=== PATIENT | female | born 1950 | race Caucasian/White ===

== ENCOUNTER → 2016-11-13 | Outpatient (CLI) | payer BC ==
[~2016-11-13] MED LIST: AMX500 PO; ANAS1TAB19 PO; ATOR-24 PO; CALC500C70 PO; CARB25TA12 PO; GABA-112 PO; IBUP-1050 PO; LISI20TA3 PO; MAGN1TAB21 PO; METF-384 PO; METO100T44 PO; MULT-614 PO; PRAM0.256 PO; Probiotic PO; TRAM-10 PO; ZVRUNK PO; lysine PO
--- NOTE | 2016-11-13 11:33 | DIAGNOSTIC IMAGING REPORT ---
BILATERAL CAROTID DOPPLER STUDY HISTORY: Visual change. Mental status change. G45.3 Bilateral amaurosis fugax COMPARISON: None. TECHNIQUE: Real-time, grayscale, and color Doppler sonography of the carotid arteries was performed. Imaging reviewed in the transverse and longitudinal planes. All measurements were calculated based on NASCET criteria. FINDINGS: Antegrade flow is seen in the bilateral vertebral arteries. The brachial pressures are hemodynamically similar. Moderate plaque formation bilaterally The peak systolic velocity within the right ICA is 72. The right systolic ratio is 0.9. The peak systolic velocity within the left ICA is 59. The left systolic ratio is 0.8. IMPRESSION: No hemodynamically significant stenosis seen within the carotid arteries. Mild plaque formation bilaterally Electronically signed by: Jean Wan M.D. 11/13/2016 11:31 AM Dictated Date/Time: 11/13/2016 11:30 AM
[2016-11-13 14:56] LABS: BASO % 0.4 %; BASO ABS # 0.02 K/uL (0-0.2); COMPLETE YES; EOS % 1.6 %; HEMATOCRIT 40.9 % (37-47); IG% 0.2 %; LYMPH ABS # 1.41 K/uL (1.2-3.4); MEAN CORPUSCULAR HEMOGLOBIN 30.5 pg (25-34); MEAN CORPUSCULAR HGB CONC 34.7 g/dl (32-36); MEAN PLATELET VOLUME 9.7 fL (7.4-10.4); MONO % 5.3 %; NEUT % 67.5 %; PLATELET COUNT 350 K/uL (130-400); RED BLOOD COUNT 4.65 M/uL (4.2-5.4); WHITE BLOOD COUNT 5.63 K/uL (4.8-10.8)
[2016-11-13 15:01] LABS: ESTIMATED AVERAGE GLUCOSE 166 mg/dl; HA1C FLAG Normal (Normal)
[2016-11-13 15:09] LABS: ALT/SGPT 51 U/L (12-78); AST/SGOT 28 U/L (15-37); BLOOD UREA NITROGEN 13 mg/dl (7-18); BUN/CREATININE RATIO 14.2 (10-20); CARBON DIOXIDE 28 mmol/L (21-32); CHLORIDE 101 mmol/L (98-107); CREATININE 0.92 mg/dl (0.60-1.20); GLUCOSE 222 mg/dl (70-99); POTASSIUM 4.2 mmol/L (3.5-5.1); SODIUM 137 mmol/L (136-145)
[2016-11-13 15:15] LABS: ALB/GLOB RATIO 0.9 (0.9-2); ALKALINE PHOSPHATASE 75 U/L (45-117); CHOLESTEROL 118 mg/dl (0-200); CHOLESTEROL/HDL RATIO 2.8; FERRITIN 118.8 ng/ml (8.0-388.0); HDL CHOLESTEROL 42 mg/dl; LDL CHOLESTEROL CALCULATED 60 mg/dl; TRIGLYCERIDES 79 mg/dl (0-150); VERY LOW DENSITY LIPOPROT CALC 16 mg/dl
== END | disposition home or self-care (01) ==
LOC: C.ULTRBC 10:45
PROVIDERS: ATTEND Internal Medicine Geriatric Medicine
DX: G45.3 Amaurosis fugax (principal); I65.23 Occlusion and stenosis of bilateral carotid arteries; Z11.59 Encounter for screening for other viral diseases; I25.10 Atherosclerotic heart disease of native coronary artery without angina pectoris; E78.5 Hyperlipidemia, unspecified; I10 Essential (primary) hypertension; E11.65 Type 2 diabetes mellitus with hyperglycemia

== ENCOUNTER → 2016-12-24 | Outpatient (CLI) | payer BC ==
--- NOTE | 2016-12-24 14:07 | MAMMOGRAPHY REPORT ---
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 The patient reports no palpable lumps or other current complaints. TECHNIQUE: Breast tomosynthesis in addition to standard 2D mammography was performed. Current study was also evaluated with a Computer Aided Detection (CAD) system. Bilateral CC and MLO 2-D and matias synthesis images and spot magnification left CC and ML views were obtained. COMPARISON: Comparison is made to exams dated: 12/13/2015 mammogram, 06/05/2015 ultrasound, 06/05/2015 mammogram, 12/05/2014 ultrasound, 12/05/2014 mammogram, and 02/27/2014 mammogram - [facility]. BREAST COMPOSITION: There are scattered areas of fibroglandular density in both breasts. FINDINGS: Again noted are post surgical changes in the left upper outer quadrant from prior lumpect concepción, including stable density and architectural distortion as well as surgical clips at the lumpecto my bed. Spot magnification views of the lumpectomy bed demonstrate scattered benign coarse dystroph ic calcifications which are increased compared to the prior exams although they are benign in morpho logy. A small cluster of punctate and round calcifications medial and anterior to the surgical bed is stable dating back to the 2013 exam and considered benign given long-term stability. No suspicio us cluster of calcifications is noted at the lumpectomy bed. The remainder of both breasts are stable compared to prior exams, without suspicious masses, calcifi cations, or areas of architectural distortion noted. Other scattered bilateral benign-appearing markos cifications are again noted. IMPRESSION: ACR BI-RADS CATEGORY 2: BENIGN There is no mammographic evidence of malignancy in either breast. Recommend routine bilateral mammo grams in one year; the patient prefers to remain a diagnostic patient. The patient has been verball y notified of the results. Approximately 10% of breast cancers are not detected with mammography. A negative mammographic repor t should not delay biopsy if a clinically suggestive mass is present. Ilsa Ortiz M.D. /:12/24/2016 10:51:45 Duplicator Punch Set Up Operator: Tamar MEDRANO(Maria Isabel)(Vida), [facility] letter sent: Normal 1/2 BI-RADS Code: ACR BI-RADS Category 2: Benign
== END | disposition home or self-care (01) ==
LOC: C.MAMM 09:37
PROVIDERS: ATTEND Nurse Practitioner Family
DX: Z85.3 Personal history of malignant neoplasm of breast (principal); Z92.3 Personal history of irradiation

== ENCOUNTER → 2017-07-05 | Outpatient (CLI) | payer BC ==
[2017-07-05 17:30] LABS: BLOOD UREA NITROGEN 13 mg/dl (7-18); BUN/CREATININE RATIO 14.3 (10-20); CALCIUM 9.3 mg/dl (8.5-10.1); CARBON DIOXIDE 27 mmol/L (21-32); CHLORIDE 95 mmol/L (98-107); CREATININE 0.92 mg/dl (0.60-1.20); GLUCOSE 203 mg/dl (70-99); POTASSIUM 3.8 mmol/L (3.5-5.1); SODIUM 131 mmol/L (136-145)
[2017-07-06 07:42] LABS: ESTIMATED AVERAGE GLUCOSE 157 mg/dl; HA1C FLAG Normal (Normal)
== END | disposition home or self-care (01) ==
LOC: C.LABBC 15:07
PROVIDERS: ATTEND Internal Medicine Geriatric Medicine
DX: E78.5 Hyperlipidemia, unspecified (principal); M19.90 Unspecified osteoarthritis, unspecified site; E11.9 Type 2 diabetes mellitus without complications; I10 Essential (primary) hypertension

== ENCOUNTER → 2017-09-29 | Outpatient (CLI) | payer BC ==
[~2017-09-29] MED LIST changes: -PRAM0.256 PO; +PRAM0.259 PO
--- NOTE | 2017-09-29 14:24 | DIAGNOSTIC IMAGING REPORT ---
CHEST 2 VIEWS ROUTINE CLINICAL HISTORY: R05 [id number] dyspnea COMPARISON STUDY: 01/03/2008 FINDINGS: Small calcified left hilar node. Calcified granuloma peripheral aspect left lung. No focal infiltrate. Diaphragms are smooth. Costophrenic angles are sharp. IMPRESSION: No acute process. Chronic granulomatous change. The above report was generated using voice recognition software. It may contain grammatical, syntax or spelling errors. Electronically signed by: Jean Wan M.D. 09/29/2017 2:22 PM Dictated Date/Time: 09/29/2017 2:21 PM
== END | disposition home or self-care (01) ==
LOC: C.RADBC 14:06
PROVIDERS: ATTEND Internal Medicine Geriatric Medicine
DX: R05 Cough (principal)

== ENCOUNTER → 2017-11-05 | Outpatient (CLI) | payer BC ==
[2017-11-05 11:39] LABS: BLOOD UREA NITROGEN 15 mg/dl (7-18); CALCIUM 9.6 mg/dl (8.5-10.1); CARBON DIOXIDE 29 mmol/L (21-32); CREATININE 0.82 mg/dl (0.60-1.20); GLUCOSE 195 mg/dl (70-99); POTASSIUM 4.3 mmol/L (3.5-5.1); SODIUM 133 mmol/L (136-145)
== END | disposition home or self-care (01) ==
LOC: C.LABBC 09:15
PROVIDERS: ATTEND Psychiatry & Neurology Neurology
DX: I10 Essential (primary) hypertension (principal); M54.16 Radiculopathy, lumbar region; K76.0 Fatty (change of) liver, not elsewhere classified; R26.89 Other abnormalities of gait and mobility

== ENCOUNTER → 2017-11-08 | Outpatient (CLI) | payer BC ==
[~2017-11-08] MED LIST changes: +GADAVIST IV PRN
--- NOTE | 2017-11-08 13:11 | DIAGNOSTIC IMAGING REPORT ---
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 There is a right hip paralabral cyst and degenerative changes within the right hip. This is not well-visualized on this study. Dedicated right hip radiograph or MRI may be helpful for further evaluation. Electronically signed by: Jose David Goodman M.D. 11/08/2017 2:26 PM Dictated Date/Time: 11/08/2017 2:25 PM ORIGINAL REPORT LUMBAR SPINE MRI WITH AND WITHOUT CONTRAST HISTORY: Low back pain with left-sided sciatica. Family history of malignant neoplasm TECHNIQUE: Multiplanar multisequence MRI of the lumbar spine was performed both before and after the intravenous administration of contrast. COMPARISON: None. FINDINGS: For the purpose of the report the L5-S1 disc space will be located on axial image 27 of 30. No fractures within the lumbar spine. Mild disc space narrowing at L1-L2, L2-L3, L3-L4, L4-L5. Moderate to severe facet degenerative changes within the lower lumbar spine. No suspicious osseous lesions identified. The visualized retroperitoneal soft tissues are unremarkable. No paraspinal or epidural masses. Multiple cystic lesions posterior to the bilateral L4-L5 and L5-S1 facets. The dominant cystic lesion at the right L4-L5 facet measures 2 cm. These demonstrate peripheral enhancement and are likely synovial cyst from the degenerative changes within the facets. Small amount of fluid within the right L5-S1 facet is also likely due to long-standing degenerative change. The conus terminates at the L1-L2 disc space level. L1-L2: Tiny broad-based posterior disc bulge. No significant central canal or neural foraminal narrowing. L2-L3: Small broad-based posterior disc bulge with facet hypertrophy resulting in minimal central canal narrowing. There is also mild right neural foraminal narrowing. L3-L4: Broad-based posterior disc bulge asymmetric to the left. In conjunction with the ligamentum and facet hypertrophy this results in mild to moderate central canal and mild bilateral neural foraminal narrowing. L4-L5: Broad-based posterior disc bulge with an associated left foraminal/extraforaminal broad-based disc protrusion. This abuts and displaces the exiting left L4 nerve root at this level. Mild enhancement at this location is likely reactive. There is mild/moderate central canal narrowing with mild right and moderate left neural foraminal narrowing. L5-S1: Small broad-based posterior disc bulge without significant central canal narrowing. Minimal bilateral neural foraminal narrowing. IMPRESSION: 1. Broad-based posterior disc bulge at L4-5 with an associated left foraminal/extraforaminal broad-based disc protrusion. This disc protrusion abuts and displaces the exiting left L4 nerve root. 2. Mild to moderate central canal narrowing at L3-L4 and L4-L5 as described above. 3. Moderate to severe facet osteoarthritis within the lower lumbar spine. There are also multiple cystic lesions posterior to the L4-L5 and L5-S1 facets. These favor synovial cysts. Electronically signed by: Jose David Goodman M.D. 11/08/2017 1:09 PM Dictated Date/Time: 11/08/2017 12:58 PM
== END | disposition home or self-care (01) ==
LOC: C.MRIBC 09:16
PROVIDERS: ATTEND Internal Medicine Geriatric Medicine
DX: M54.30 Sciatica, unspecified side (principal); M54.16 Radiculopathy, lumbar region; Z85.3 Personal history of malignant neoplasm of breast; Z80.3 Family history of malignant neoplasm of breast

== ENCOUNTER 2019-04-05 00:11 | Observation (INO) ==
[2019-04-05] MEDS ORDERED: FAMOTIDINE 20MG/5ML IV PUSH IV STA (01:22)
[2019-04-05] MEDS ORDERED: ALUMINUM/MAGNESIUM SUSP 30 ML UDC PO STA (01:22)
[2019-04-05 01:30] LABS: Basophils # (auto) 0.03 K/uL (0-0.2); Basophils % (auto) 0.4 %; Eosinophils # (auto) 0.22 K/uL (0-0.5); Eosinophils % (auto) 2.9 %; Hematocrit (blood only) 42.5 % (37-47); Hemoglobin 14.4 g/dL (12.0-16.0); Immature Granulocytes # (auto) 0.01 K/uL (0.00-0.02); Immature Granulocytes % (auto) 0.1 %; Lymphocytes # (auto) 2.83 K/uL (1.2-3.4); Lymphocytes % (auto) 37.4 %; Mean Corpuscular Hemoglobin 29.6 pg (25-34); Mean Corpuscular Hgb Conc 33.9 g/dL (32-36); Mean Corpuscular Volume 87.4 fL (80-100); Mean Platelet Volume 10.2 fL (7.4-10.4); Monocytes # (auto) 0.69 K/uL (0.11-0.59); Monocytes % (auto) 9.1 %; Neutrophils # (auto) 3.79 K/uL (1.4-6.5); Neutrophils % (auto) 50.1 %; Platelet Count 296 K/uL (130-400); RDW Coefficient of Variation 13.6 % (11.5-14.5); RDW Standard Deviation 43.5 fL (36.4-46.3); Red Blood Count 4.86 M/uL (4.2-5.4); White Blood Count 7.57 K/uL (4.8-10.8)
[2019-04-05 01:39] LABS: Albumin Level 3.8 gm/dl (3.4-5.0); BUN Creatinine Ratio 22.5 (10-20); Calcium 9.5 mg/dl (8.5-10.1); Creatinine Clr Calc Pharmacy 58.5 ml/min; Est GFR (African American) 66.4; Est GFR (Non-African American) 57.3; Magnesium 2.1 mg/dl (1.8-2.4)
[2019-04-05 01:50] LABS: Albumin Globulin Ratio 0.9 (0.9-2); Bilirubin,Total 0.3 mg/dl (0.2-1); Globulin 4.1 gm/dl (2.5-4.0); Thyroid Stimulating Hormone 6.11 uIu/ml (0.300-4.500); Total Protein 7.9 gm/dl (6.4-8.2); Troponin I 0.026 ng/ml (0-0.045)
[2019-04-05 02:04] LABS: D Dimer 590 ug/L FEU (0-500)
[2019-04-05] MEDS ORDERED: NITROGLYCERIN 2% OINTMENT 30GM TUBE EXT ONE (02:17)
[2019-04-05] MEDS ORDERED: OPTIRAY 320 125ml IV PRN (03:06)
[2019-04-05] MEDS ORDERED: CARBIDOPA/LEVODOPA 25/100MG TAB PO STA (03:32)
[2019-04-05 05:09] LABS: Prothrombin Time 10.4 Seconds (9.0-12.0)
--- NOTE | 2019-04-05 05:52 | Emergency Department Note ---
Entered by Guilherme Chery acting as a scribe for Nighat Harris DO History of Present Illness General Chief complaint: Chest Pain Stated complaint: CHEST DISCOMFORT, THROAT/NECK PAIN Time Seen by Provider: 04/05/19 00:51 Source: patient History of Present Illness Onset (ago): hour(s) (an hour and fifteen minutes ago) Location: chest Radiation: other (throat, jaw) Severity: similar to prior episodes Pain Consistency: + constant Maximum Pain Intensity: 3 Quality: + other (tightness) Associated symptoms: + other (Positive for a mild headache and mild difficulty swallowing. Negative for pain with swallowing, SOB, dizziness, and nausea.) The patient is a 69 year old female who presents to the emergency department with complaints of constant chest tightness beginning an hour and fifteen minutes ago. The patient states that she went to lie down in bed an hour and fifteen minutes ago. She notes that she started having mid chest tightness at that time. She reports that she then developed some discomfort in her throat and jaw. The patient states that she then went to sit in her living room, but she no awilda that her symptoms began to worsen. She reports that she did not have any pain radiate into her back or into her arms. She also complains of a mild headache and some mild difficulty swallowing. The patient states that she has had similar episodes in the past, however never sought any evaluation.. She denies any pain with swallowing, SOB, dizziness, and nausea. She notes that she has a history of GERD and angina, and she reports that she has had a cardiac catheterization in 2005. She states this did show a small area of coronary artery disease that was unable to be stented or traversed given its location. Patient's last stress test was [address] Parry. The patient states that she does not have a history of heart attacks. She notes that 3 of her siblings have had heart attacks in the past, several at younger ages. No recent trauma or change in activity. Patient does live at home alone. Home Medications Home Medications Medication Instructions Recorded Confirmed Type acyclovir 200 mg PO BID #0 02/05/18 04/05/19 History pantoprazole [Protonix] 40 mg PO QAM #0 02/05/18 04/05/19 History acetaminophen [Tylenol Extra 500 mg PO Q6H PRN 04/05/18 04/05/19 History Strength] ibuprofen [Advil] 200 mg PO TID PRN 04/05/18 04/05/19 History multivitamin 1 tab PO DAILY 04/05/18 04/05/19 History amlodipine 5 mg tablet 5 mg PO DAILY #0 tab 12/29/18 04/05/19 History anastrozole 1 mg tablet 1 mg PO DAILY #0 tab 12/29/18 04/05/19 History aspirin 81 mg tablet,delayed 81 mg PO DAILY 12/29/18 04/05/19 History release glimepiride 4 mg tablet 4 mg PO DAILY #0 tab 12/29/18 04/05/19 History atorvastatin 40 mg tablet 40 mg PO HS 90 Days #90 tab 01/23/19 04/05/19 Rx metoprolol succinate ER 100 mg 100 mg PO DAILY #90 tab 03/20/19 04/05/19 Rx tablet,extended release 24 hr gabapentin 300 mg capsule See Rx Instructions .ROUTE 03/24/19 04/05/19 Rx .COMPLEX 30 Days #150 cap amoxicillin 500 mg capsule 2,000 mg PO UD PRN #0 cap 03/25/19 04/05/19 History bupropion HCl SR 100 mg tablet,12 100 mg PO DAILY ea 03/25/19 04/05/19 History hr sustained-release calcium carbonate-vitamin D3 500 1 tab PO DAILY tab 03/25/19 04/05/19 History mg (1,250 mg)-600 unit tablet canagliflozin 300 mg tablet 300 mg PO DAILY 03/25/19 04/05/19 History carbidopa 25 mg-levodopa 100 mg 1 - 2 tab PO TID PRN #90 tab 03/25/19 04/05/19 History tablet magnesium 400 mg (as magnesium 400 mg PO QAM #0 tab 03/25/19 04/05/19 History oxide) capsule pramipexole ER 1.5 mg 1 mg PO QPM #30 tab 03/25/19 04/05/19 History tablet,extended release 24 hr sitagliptin 50 mg-metformin 1,000 1 tab PO BID #180 tab 03/25/19 04/05/19 History mg tablet diclofenac 1 % topical gel 4 gm TOP QID #100 gm 03/27/19 04/05/19 Rx canagliflozin [Invokana] 300 mg PO DAILY 04/05/19 04/05/19 History sitagliptin-metformin [Janumet] 1 tab PO BID 04/05/19 04/05/19 History Allergies Allergy/AdvReac Type Severity Reaction Status Date / Time latex Allergy Intermediate SKIN Verified 04/05/19 01:55 IRRITATION gluten AdvReac Unknown "sleepiness Verified 04/05/19 01:55 " Past Med/Surg History Medical History Diabetes mellitus, type 2 (Inactive) Diabetes mellitus type II, uncontrolled Hypertension (Chronic) Arteriosclerotic coronary artery disease (Chronic) Arthritis, hip (Acute) BMI 31.0-31.9,adult (Acute) Carotid artery plaque (Chronic) Chronic kidney disease, stage II (mild) (Chronic) Cognitive disorder (Acute) Cough (Acute) Diabetic peripheral neuropathy (Chronic) Dyslipidemia (Chronic) Encounter for routine gynecological examination with Papanicolaou smear of cervix (Acute) Genital herpes simplex (Acute) History of malignant neoplasm of breast (Acute) Lumbar radiculopathy (Acute) Moderate tramadol dependence (Acute) Poor balance (Acute) Rosacea (Acute) Trigger finger, acquired (Acute) Osteoarthritis of right hip Breast neoplasm, 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) Degenerative joint disease (Chronic) Sleep apnea (Chronic) Depression (Chronic) Restless leg syndrome (Chronic) 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) Stage I breast cancer (Acute 04/23/14) "Abnormal left breast mammogram 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 Status post lumpectomy and sentinel lymph node biopsy 04/23/2014 revealing invasive ductal carcinoma Stage [id number] estrogen receptor positive, progesterone receptor positive, HER-2/jethro negative Status post completion of radiation therapy 08/13/2014 received 6300 cGy Participation inREATA Study 40C 1306" Anginal pain Anxiety Arrhythmia CAD (coronary artery disease) non-obstructive CAD Cancer BREAST CANCER; XRT 2013; ON ANASTRAZOLE Depression Eye hemorrhage Fatty liver GERD (gastroesophageal reflux disease) controlled Gout Hypertension Obesity Osteoarthritis Restless leg syndrome ON CARVIDOPA-LEVODOPA/PRAMIPEXOLE Sleep apnea NO DEVICE Valvular disease MILD MR PER 2013 DSE Surgical History Status post tonsillectomy (Acute) Status post cardiac catheterization (Resolved 2005) Status post total knee replacement (Resolved) History of arthroscopy RT KNEE History of cardiac cath 2003- NON-OBSTRUCTIVE CAD; NO STENTS History of cataract surgery History of colonoscopy History of dilation and curettage History of hysterectomy History of tonsillectomy History of tooth extraction History of total knee replacement LEFT KNEE X 2 Hx of lumpectomy LEFT BREAST LUMPECTOMY WITH AXILLARY LND (04/23/14= LMA #4 AT [facility]) Family History Family/Other Family history of diabetes mellitus Sister Chronic liver disease Mother Cancer Bone cancer Breast cancer Family/Other Cardiac disorder Diabetes Father Stroke Other Family history of heart attack Social History Preferred Language: Yi Communication Ability: Effective Visual Impairment: No Limitations Call Out Operator Required: Yes Beliefs That Will Affect Care: Temple Temple Beliefs: ANABAPTISM marital status: Single Current Living Situation: Alone Feels Safe at Home: Yes Smoking Status: Never smoker Second Hand Exposure: No ; Hx Alcohol Use: Yes Alcohol type: wine Hx Substance Use: No Review of Systems See HPI for pertinent positives & negatives. and A total of 10 systems reviewed and were otherwise negative Physical Exam Vital Signs Vital Signs - 24 hr 04/05/19 00:19 04/05/19 00:45 04/05/19 00:46 Temperature 36.4 C L Temperature Source Oral Sepsis Recent Fever Within 48 Hours No Sepsis New/Unexplained Change in Mental Status No Sepsis Action Taken by Nursing No Action Required Pulse Rate 89 78 Pulse Rate [Right Finger] Pulse Rate from SpO2 Sensor 78 Respiratory Rate 20 11 L Respiratory Effort / Characteristics Non-Labored Spontaneous Respiratory Depth Normal Respiratory Pattern Blood Pressure 199/101 H 184/105 H Blood Pressure [Right Arm] Blood Pressure Mean 133 131 Blood Pressure Mean [Right Arm] Blood Pressure Position Sitting Blood Pressure Position [Right Arm] Pulse Oximetry 97 94 95 Oxygen Delivery Method Room Air Room Air 04/05/19 01:00 04/05/19 01:30 04/05/19 01:47 Temperature Temperature Source Sepsis Recent Fever Within 48 Hours Sepsis New/Unexplained Change in Mental Status Sepsis Action Taken by Nursing Pulse Rate 79 79 Pulse Rate [Right Finger] 78 79 Pulse Rate from SpO2 Sensor 78 77 Respiratory Rate 11 L 14 16 Respiratory Effort / Characteristics Non-Labored Spontaneous Non-Labored Spontaneous Respiratory Depth Normal Normal Respiratory Pattern Regular Regular Blood Pressure 163/106 H 155/117 H Blood Pressure [Right Arm] 163/106 H 155/117 H Blood Pressure Mean 125 129 Blood Pressure Mean [Right Arm] 125 129 Blood Pressure Position Blood Pressure Position [Right Arm] Lying Lying Pulse Oximetry 94 95 96 Oxygen Delivery Method Room Air Room Air 04/05/19 01:50 04/05/19 02:00 04/05/19 02:30 Temperature Temperature Source Sepsis Recent Fever Within 48 Hours Sepsis New/Unexplained Change in Mental Status Sepsis Action Taken by Nursing Pulse Rate 77 76 Pulse Rate [Right Finger] Pulse Rate from SpO2 Sensor 77 75 Respiratory Rate 16 17 Respiratory Effort / Characteristics Respiratory Depth Respiratory Pattern Blood Pressure 175/97 H 163/87 H Blood Pressure [Right Arm] Blood Pressure Mean 123 112 Blood Pressure Mean [Right Arm] Blood Pressure Position Blood Pressure Position [Right Arm] Pulse Oximetry 96 96 Oxygen Delivery Method 04/05/19 02:31 04/05/19 03:00 04/05/19 03:30 Temperature Temperature Source Sepsis Recent Fever Within 48 Hours Sepsis New/Unexplained Change in Mental Status Sepsis Action Taken by Nursing Pulse Rate 87 81 Pulse Rate [Right Finger] 78 Pulse Rate from SpO2 Sensor 85 81 Respiratory Rate 18 17 22 Respiratory Effort / Characteristics Non-Labored Spontaneous Respiratory Depth Normal Respiratory Pattern Blood Pressure 177/85 H 152/77 H Blood Pressure [Right Arm] 163/87 H Blood Pressure Mean 115 102 Blood Pressure Mean [Right Arm] 112 Blood Pressure Position Blood Pressure Position [Right Arm] Lying Pulse Oximetry 97 97 93 Oxygen Delivery Method Room Air 04/05/19 04:00 04/05/19 04:30 04/05/19 05:00 Temperature Temperature Source Sepsis Recent Fever Within 48 Hours Sepsis New/Unexplained Change in Mental Status Sepsis Action Taken by Nursing Pulse Rate 91 H 79 Pulse Rate [Right Finger] Pulse Rate from SpO2 Sensor 80 89 78 Respiratory Rate 20 20 16 Respiratory Effort / Characteristics Respiratory Depth Respiratory Pattern Blood Pressure 169/93 H 130/95 175/97 H Blood Pressure [Right Arm] Blood Pressure Mean 118 106 123 Blood Pressure Mean [Right Arm] Blood Pressure Position Blood Pressure Position [Right Arm] Pulse Oximetry 95 95 96 Oxygen Delivery Method GENERAL: alert, well appearing, well nourished, no distress, non-toxic EYE EXAM: normal conjunctiva, PERRL and EOM's grossly intact OROPHARYNX: no exudate, no erythema, lips, buccal mucosa, and tongue normal and mucous membranes are moist NECK: supple, no nuchal rigidity, no adenopathy, non-tender LUNGS: Clear to auscultation. Normal chest wall mechanics, no w/r/r HEART: no murmurs, S1 normal and S2 normal ABDOMEN: abdomen soft, non-tender, normo-active bowel sounds, no masses, no rebound or guarding. BACK: Back is symmetrical on inspection and there is no deformity, no midline tenderness, no CVA tenderness. SKIN: no rashes and no bruising UPPER EXTREMITIES: upper extremities are grossly normal. FROM, nml pulses b/l. LOWER EXTREMITIES: No pitting edema. FROM, nml pulses b/l. NEURO EXAM: Normal sensorium, cranial nerves II-XII grossly intact, normal speech, no gross weakness of arms, no gross weakness of legs. Course 0110: The patient was evaluated in room B7. A complete history and physical exam was performed. 0213: I reevaluated and updated the patient. She is still having pain after GI cocktail. 0425: I reevaluated and updated the patient. Her pain has improved since she received nitroglycerin. 0459: Upon reevaluation, the patient is stable. I discussed the findings and the treatment plan with the patient. She expresses agreement and understanding. I spoke with Dr. Cao of the [facility] – [place] Hospitalist Service. The patient will be evaluated for further management. Consultations Consultation #1: I reviewed the patient's case with Dr. Cao - Estephania huntley, [facility] [place]. He will evaluate the patient for further management. Time: 04:59 Administered Medications Ioversol (Optiray 320 125ml) 125 ml IV ONCE PRN PRN Reason: Interaction Checking Stop: 04/09/19 03:05 Last Admin: 04/05/19 03:07 Dose: 94 ml Documented by: [id number] Discontinued Medications Al Hydrox/Mg Hydrox/Simethicone (Maalox) 15 ml PO NOW STA Stop: 04/05/19 01:23 Last Admin: 04/05/19 01:41 Dose: 15 ml Documented by: [id number] Carbidopa/Levodopa (Sinemet 25/100 Mg) 1 tab PO NOW STA Stop: 04/05/19 03:33 Last Admin: 04/05/19 04:09 Dose: 1 tab Documented by: [id number] Famotidine (Pepcid 20mg Iv Push) 20 mg IV ONE STA Stop: 04/05/19 01:23 Last Admin: 04/05/19 01:41 Dose: 20 mg Documented by: [id number] Nitroglycerin (Nitro-Bid 2%) 0.5 inch EXT NOW ONE Stop: 04/05/19 02:18 Last Admin: 04/05/19 02:28 Dose: 0.5 inch Documented by: [id number] Medical Decision Making Differential Diagnosis Differential diagnoses includes but is not limited to acute coronary syndrome, myocardial infarction, pericarditis, pulmonary embolus, aortic dissection, pneumonia, pneumothorax, musculoskeletal, shingles, esophageal. Medical Records Attestation: I reviewed the patient's medical records. Home Medications Current Medication List: was personally reviewed by me Laboratory Data Attestation: I reviewed the patient's lab results. Result diagrams: 04/05/19 00:00 04/05/19 00:00 Lab Results 04/05/19 04/05/19 04/05/19 Range/Units 00:00 00:00 00:00 WBC 7.57 (4.8-10.8) K/uL RBC 4.86 (4.2-5.4) M/uL Hgb 14.4 (12.0-16.0) g/dL Hct 42.5 (37-47) % MCV 87.4 (80-100) fL MCH 29.6 (25-34) pg MCHC 33.9 (32-36) g/dL RDW Std Deviation 43.5 (36.4-46.3) fL RDW Coeff of Oksana 13.6 (11.5-14.5) % Plt Count 296 (130-400) K/uL MPV 10.2 (7.4-10.4) fL Immature Gran % (Auto) 0.1 % Neut % (Auto) 50.1 % Lymph % (Auto) 37.4 % [place] % (Auto) 9.1 % Eos % (Auto) 2.9 % Baso % (Auto) 0.4 % Immature Gran # (Auto) 0.01 (0.00-0.02) K/uL Neut # (Auto) 3.79 (1.4-6.5) K/uL Lymph # (Auto) 2.83 (1.2-3.4) K/uL [place] # (Auto) 0.69 H (0.11-0.59) K/uL Eos # (Auto) 0.22 (0-0.5) K/uL Baso # (Auto) 0.03 (0-0.2) K/uL PT Cancelled INR Cancelled D-Dimer 590 H* (0-500) ug/L FEU Sodium 139 (136-145) mmol/L Potassium 4.0 (3.5-5.1) mmol/L Chloride 105 (98-107) mmol/L Carbon Dioxide 25 (21-32) mmol/L Anion Gap 9.0 (3-11) BUN 22 H (7-18) mg/dl Creatinine 0.99 (0.6-1.2) mg/dl Est Cr Clr Drug Dosing 58.5 ml/min Est GFR ( Amer) 66.4 Est GFR (Non-Af Amer) 57.3 BUN/Creatinine Ratio 22.5 H (10-20) Glucose 135 H (70-99) mg/dl Calcium 9.5 (8.5-10.1) mg/dl Magnesium 2.1 (1.8-2.4) mg/dl Total Bilirubin 0.3 (0.2-1) mg/dl AST 30 (15-37) U/L ALT 18 (12-78) U/L Alkaline Phosphatase 80 (45-117) U/L Troponin I 0.026 (0-0.045) ng/ml NT-Pro-B Natriuret Pep 94 (0-900) pg/ml Total Protein 7.9 (6.4-8.2) gm/dl Albumin 3.8 (3.4-5.0) gm/dl Globulin 4.1 H (2.5-4.0) gm/dl Albumin/Globulin Ratio 0.9 (0.9-2) Lipase 183 (73-393) U/L TSH 6.110 H (0.300-4.500) uIu/ml 04/05/19 Range/Units 00:00 WBC (4.8-10.8) K/uL RBC (4.2-5.4) M/uL Hgb (12.0-16.0) g/dL Hct (37-47) % MCV (80-100) fL MCH (25-34) pg MCHC (32-36) g/dL RDW Std Deviation (36.4-46.3) fL RDW Coeff of Oksana (11.5-14.5) % Plt Count (130-400) K/uL MPV (7.4-10.4) fL Immature Gran % (Auto) % Neut % (Auto) % Lymph % (Auto) % [place] % (Auto) % Eos % (Auto) % Baso % (Auto) % Immature Gran # (Auto) (0.00-0.02) K/uL Neut # (Auto) (1.4-6.5) K/uL Lymph # (Auto) (1.2-3.4) K/uL [place] # (Auto) (0.11-0.59) K/uL Eos # (Auto) (0-0.5) K/uL Baso # (Auto) (0-0.2) K/uL PT 10.4 INR 1.0 D-Dimer (0-500) ug/L FEU Sodium (136-145) mmol/L Potassium (3.5-5.1) mmol/L Chloride (98-107) mmol/L Carbon Dioxide (21-32) mmol/L Anion Gap (3-11) BUN (7-18) mg/dl Creatinine (0.6-1.2) mg/dl Est Cr Clr Drug Dosing ml/min Est GFR ( Amer) Est GFR (Non-Af Amer) BUN/Creatinine Ratio (10-20) Glucose (70-99) mg/dl Calcium (8.5-10.1) mg/dl Magnesium (1.8-2.4) mg/dl Total Bilirubin (0.2-1) mg/dl AST (15-37) U/L ALT (12-78) U/L Alkaline Phosphatase (45-117) U/L Troponin I (0-0.045) ng/ml NT-Pro-B Natriuret Pep (0-900) pg/ml Total Protein (6.4-8.2) gm/dl Albumin (3.4-5.0) gm/dl Globulin (2.5-4.0) gm/dl Albumin/Globulin Ratio (0.9-2) Lipase (73-393) U/L TSH (0.300-4.500) uIu/ml Imaging Data Attestation: I personally reviewed and interpreted this imaging study as follows: My Impression: SINGLE VIEW CHEST X-RAY: No cardiomegaly. No effusions. No wide mediastinum. No focal consolidation. Radiologist's Impression: Radiology results as stated below per my review and the radiologist's interpretation: CTA CHEST: Comparison: January 23, 2008. Normal caliber aorta with pulsation artifact. Coronary artery calcifications. No pericardial effusion. Dependent vascular congestion/atelectasis. No focal consolidative process or pleural effusions. Little interval change in 0.7cm left lower lobe subpleural nodule on image 39 of series 3. No definite PE. Old granulomatous disease. Left breast calcifications. Radiologist: Hazel Neumann MD. ECG Data Attestation: I personally reviewed and interpreted this ECG as follows: Indication: chest pain Rate (beats per minute): 82 Rhythm: sinus rhythm Findings: no PAC, no PVC and no acute ischemic change Comparison ECG Date: from (04/06/2018) Change: no significant change Additional Comments: Normal axis, normal intervals. EKG #2: Sinus rhythm, 77, normal axis, normal intervals, no ectopy, no acute ischemic change. Blood Pressure Blood Pressure Findings: Elevated blood pressure Blood Pressure Disposition: further management by hospitalist [facility] Narrative HEART score 4 Patient here with story concerning for possible evolving ACS. Patient with significant family history. EKG reassuring and first troponin negative. Given slightly elevated d-dimer and radiation of pain upwards, patient sent for CT angiography of the chest as well. No evidence of PE, pericardial effusion, aneurysm or dissection. No evidence of occult infectious etiology. Patient symptoms initially unrelieved by GI medications. Following this patient was given Nitropaste which did improve her symptoms. Patient was found to be hypertensive here, although I do feel there is a component of anxiety and pain contributing to this. Patient otherwise hemodynamically stable. Patient with risk factors for ACS, and has previously seen doctors out of cardiology. Last stress test was approximate 4 years ago. Discussed all results with patient at bedside as well as my concern that she may need additional blood work and cardiology evaluation. Patient was in agreement with this plan. Case discussed with hospitalist. Impression & Plan Chest pain, Hyperglycemia, Hypertension Discharge Plan Visit Data Chief Complaint: Chest Pain Stated Complaint: CHEST DISCOMFORT, THROAT/NECK PAIN ED Provider: Nighat Harris Discharge Problem: Chest pain, Hyperglycemia, Hypertension Patient Disposition: Being Evaluated by Hospitalist Condition: Good Forms Stand Alone Forms: Call Back Authorization, [facility] Prescriptions: No Action acyclovir 200 mg Capsule 200 mg PO BID Qty: 0 RF: 0 pantoprazole [Protonix] 40 mg Tablet,Delayed Release (Dr/Ec) 40 mg PO QAM Qty: 0 RF: 0 amlodipine 5 mg tablet 5 mg PO DAILY Qty: 0 RF: 0 anastrozole 1 mg tablet 1 mg PO DAILY Qty: 0 RF: 0 glimepiride 4 mg tablet 4 mg PO DAILY Qty: 0 RF: 0 atorvastatin [Lipitor] 40 mg tablet 40 mg PO HS 90 Days Qty: 90 RF: 3 metoprolol succinate [Toprol XL] 100 mg tablet extended release 24 hr 100 mg PO DAILY Qty: 90 RF: 3 gabapentin 300 mg capsule See Patient Comments .ROUTE .COMPLEX 30 Days Qty: 150 RF: 3 amoxicillin 500 mg capsule 2,000 mg PO UD PRN (Reason: BEFORE DENTAL PROCEDURE) Qty: 0 RF: 0 magnesium oxide 400 mg magnesium capsule 400 mg PO QAM Qty: 0 RF: 0 bupropion HCl 100 mg tablet sustained-release 12 hr 100 mg PO DAILY RF: 0 Invokana 300 mg tablet 300 mg PO DAILY RF: 0 carbidopa-levodopa 25-100 mg tablet 1 - 2 tab PO TID PRN (Reason: RESTLESS LEGS SYMPTOMS) Qty: 90 RF: 0 Janumet 50-1,000 mg tablet 1 tab PO BID Qty: 180 RF: 0 pramipexole 1.5 mg tablet extended release 24 hr 1 mg PO QPM Qty: 30 RF: 0 diclofenac sodium 1 % gel 4 gm TOP QID Qty: 100 RF: 2 aspirin [Adult Low Dose Aspirin] 81 mg tablet,delayed release (DR/EC) 81 mg PO DAILY RF: 0 calcium carbonate-vitamin D3 500mg (1,250mg) -600 unit tablet 1 tab PO DAILY RF: 0 multivitamin Tablet 1 tab PO DAILY RF: 0 acetaminophen [Tylenol Extra Strength] 500 mg Tablet 500 mg PO Q6H PRN (Reason: Pain) RF: 0 ibuprofen [Advil] 200 mg Tablet 200 mg PO TID PRN (Reason: Pain) RF: 0 Janumet 50-1,000 mg Tablet 1 tab PO BID RF: 0 Invokana 300 mg Tablet 300 mg PO DAILY RF: 0 Referrals Referrals: Yvonne Gaytan, PAAmanC [Primary Care Provider] - The scribe's documentation has been prepared under my direction and personally reviewed by me in its entirety. I confirm that the note above accurately reflects all work, treatment, procedures, and medical decision making performed by me.
--- NOTE | 2019-04-05 05:53 | History & Physical Report ---
Date of Service April 05, 2019 Assessment & Plan (1) Acute coronary syndrome without high troponin: ACS with normal troponin/CAD/hypertension/strong family history of heart disease- The patient will be admitted to telemetry for serial cardiac enzymes, serial EKG's, cardiac rhythm monitoring and a 2-D echocardiogram with Dopplers. Continue metoprolol succinate ER 100 mg p.o. every morning, aspirin 81 mg daily and amlodipine 5 mg p.o. daily. She reports that she did have a cardiac catheterization at [facility] in approximately 2006, which had some non-interventional abnormalities. Consult her cotton acreage measurer Dr. Mendez. Present on Admission?: Yes (2) Hypertension: See above Present on Admission?: Yes (3) Diabetes mellitus, type 2: During the acute phase of work-up, will hold Invokana, glimepiride, metformin and sitagliptin. Placed on Accu-Cheks before meals and at bedtime with NovoLog coverage per sc dean. Present on Admission?: Yes (4) Diabetic peripheral neuropathy: Continue gabapentin as per outpatient dosing. Present on Admission?: Yes (5) Restless leg syndrome: Continue pramipexole ER 1.5 mg every evening. Present on Admission?: Yes (6) Genital herpes simplex: Continue acyclovir 200 mg p.o. twice daily Present on Admission?: Yes (7) Depression: Continue bupropion SR 100 mg p.o. daily Present on Admission?: Yes (8) Dyslipidemia: Continue atorvastatin 40 mg in the evening. Check a fasting lipid panel Present on Admission?: Yes (9) Degenerative joint disease: Hold NSAIDs during acute cardiac work-up Present on Admission?: Yes History of Present Illness Chief Complaint: The patient presents to the emergency department early this morning, after developing substernal chest pressure, while she was trying to get to sleep. Primary Care Provider: Yvonne Gaytan PA-C The patient is a 69-year-old female with a past medical history including hypertension, hyperlipidemia, diabetes mellitus, GERD, neuropathy, and restless legs, presents to the emergency department with substernal chest pressure that occurred while laying down for sleep earlier this morning. Upon arrival in the emergency department, she underwent appropriate work-up, and had relief of the chest pressure with the application of nitroglycerin sublingual paste. She has a very strong family history of heart disease, with siblings who have either of heart disease or have had stents placed. Allergies Allergy/AdvReac Type Severity Reaction Status Date / Time latex Allergy Intermediate SKIN Verified 04/05/19 01:55 IRRITATION gluten AdvReac Unknown "sleepiness Verified 04/05/19 01:55 " Home Medications Home Medications Medication Instructions Recorded Confirmed Type acyclovir 200 mg PO BID #0 02/05/18 04/05/19 History pantoprazole [Protonix] 40 mg PO QAM #0 02/05/18 04/05/19 History acetaminophen [Tylenol Extra 500 mg PO Q6H PRN 04/05/18 04/05/19 History Strength] ibuprofen [Advil] 200 mg PO TID PRN 04/05/18 04/05/19 History multivitamin 1 tab PO DAILY 04/05/18 04/05/19 History amlodipine 5 mg tablet 5 mg PO DAILY #0 tab 12/29/18 04/05/19 History anastrozole 1 mg tablet 1 mg PO DAILY #0 tab 12/29/18 04/05/19 History aspirin 81 mg tablet,delayed 81 mg PO DAILY 12/29/18 04/05/19 History release glimepiride 4 mg tablet 4 mg PO DAILY #0 tab 12/29/18 04/05/19 History atorvastatin 40 mg tablet 40 mg PO HS 90 Days #90 tab 01/23/19 04/05/19 Rx metoprolol succinate ER 100 mg 100 mg PO DAILY #90 tab 03/20/19 04/05/19 Rx tablet,extended release 24 hr gabapentin 300 mg capsule See Rx Instructions .ROUTE 03/24/19 04/05/19 Rx .COMPLEX 30 Days #150 cap amoxicillin 500 mg capsule 2,000 mg PO UD PRN #0 cap 03/25/19 04/05/19 History bupropion HCl SR 100 mg tablet,12 100 mg PO DAILY ea 03/25/19 04/05/19 History hr sustained-release calcium carbonate-vitamin D3 500 1 tab PO DAILY tab 03/25/19 04/05/19 History mg (1,250 mg)-600 unit tablet canagliflozin 300 mg tablet 300 mg PO DAILY 03/25/19 04/05/19 History carbidopa 25 mg-levodopa 100 mg 1 - 2 tab PO TID PRN #90 tab 03/25/19 04/05/19 History tablet magnesium 400 mg (as magnesium 400 mg PO QAM #0 tab 03/25/19 04/05/19 History oxide) capsule pramipexole ER 1.5 mg 1 mg PO QPM #30 tab 03/25/19 04/05/19 History tablet,extended release 24 hr sitagliptin 50 mg-metformin 1,000 1 tab PO BID #180 tab 03/25/19 04/05/19 History mg tablet diclofenac 1 % topical gel 4 gm TOP QID #100 gm 03/27/19 04/05/19 Rx canagliflozin [Invokana] 300 mg PO DAILY 04/05/19 04/05/19 History sitagliptin-metformin [Janumet] 1 tab PO BID 04/05/19 04/05/19 History Past Med/Surg History Medical History Diabetes mellitus, type 2 (Inactive) Diabetes mellitus type II, uncontrolled Hypertension (Chronic) Arteriosclerotic coronary artery disease (Chronic) Arthritis, hip (Acute) BMI 31.0-31.9,adult (Acute) Carotid artery plaque (Chronic) Chronic kidney disease, stage II (mild) (Chronic) Cognitive disorder (Acute) Cough (Acute) Diabetic peripheral neuropathy (Chronic) Dyslipidemia (Chronic) Encounter for routine gynecological examination with Papanicolaou smear of cervix (Acute) Genital herpes simplex (Acute) History of malignant neoplasm of breast (Acute) Lumbar radiculopathy (Acute) Moderate tramadol dependence (Acute) Poor balance (Acute) Rosacea (Acute) Trigger finger, acquired (Acute) Osteoarthritis of right hip Breast neoplasm, 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) Degenerative joint disease (Chronic) Sleep apnea (Chronic) Depression (Chronic) Restless leg syndrome (Chronic) 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) Stage I breast cancer (Acute 04/23/14) "Abnormal left breast mammogram 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 Status post lumpectomy and sentinel lymph node biopsy 04/23/2014 revealing invasive ductal carcinoma Stage [id number] estrogen receptor positive, progesterone receptor positive, HER-2/jethro negative Status post completion of radiation therapy 08/13/2014 received 6300 cGy Participation inREATA Study 40C 1306" Anginal pain Anxiety Arrhythmia CAD (coronary artery disease) non-obstructive CAD Cancer BREAST CANCER; XRT 2013; ON ANASTRAZOLE Depression Eye hemorrhage Fatty liver GERD (gastroesophageal reflux disease) controlled Gout Hypertension Obesity Osteoarthritis Restless leg syndrome ON CARVIDOPA-LEVODOPA/PRAMIPEXOLE Sleep apnea NO DEVICE Valvular disease MILD MR PER 2013 DSE Surgical History Status post tonsillectomy (Acute) Status post cardiac catheterization (Resolved 2005) Status post total knee replacement (Resolved) History of arthroscopy RT KNEE History of cardiac cath 2004- NON-OBSTRUCTIVE CAD; NO STENTS History of cataract surgery History of colonoscopy History of dilation and curettage History of hysterectomy History of tonsillectomy History of tooth extraction History of total knee replacement LEFT KNEE X 2 Hx of lumpectomy LEFT BREAST LUMPECTOMY WITH AXILLARY LND (04/23/14= LMA #4 AT [facility]) Family History Family/Other Family history of diabetes mellitus Sister Chronic liver disease Mother Cancer Bone cancer Breast cancer Family/Other Cardiac disorder Diabetes Father Stroke Other Family history of heart attack Social History Preferred Language: Estonian Communication Ability: Effective Visual Impairment: No 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: Yes Beliefs That Will Affect Care: Muslim Muslim Beliefs: SYNAGOGUE marital status: Single Current Living Situation: Alone Feels Safe at Home: Yes Smoking Status: Never smoker Second Hand Exposure: No ; Hx Alcohol Use: Yes Alcohol type: wine Hx Substance Use: No Review of Systems Review of Systems: The patient denies palpitations, shortness of breath, dyspnea on exertion, cough, lower extremity swelling, sore throat, fevers, chills, sweats, weight change, fatigue, nausea, vomiting, diarrhea , constipation, abdominal pain, pelvic pain, blood in urine or stool, dysuria, urinary frequency or urgency, lightheadedness, dizziness, headache, memory loss, loss of consciousness, rash, abnormal bruising or bleeding, imbalance, focal or generalized weakness, numbness or tingling in arms or left leg, generalized arthralgias or myalgias, back or neck pain, or night sweats. She does report some cramping in the back of her right calf over the past 3 weeks, which did resolve yesterday. The review of systems is otherwise negative other than for that already noted above, and at least 10 systems have been reviewed. Physical Exam Physical Exam: The patient is awake, alert and oriented 3, well developed and well nourished, normocephalic and atraumatic, lying in bed and in no acute distress. HEENT--PERRL, EOMI, mucous membranes and oropharynx dry. Neck--supple. No JVD. No bruits. Thyroid normal, trachea midline, no adenopathy. Heart--normal S1 and S2. No murmurs, rubs or gallops. Lungs--clear bilaterally, no respiratory distress, no accessory muscle use. Abdomen--normal bowel sounds and soft. Nontender. Nondistended, no hernias or masses, no organomegaly. Extremities--no cyanosis or clubbing. No edema. There are good distal pulses b/l. Dermatologic--normal skin turgor, normal color, no abnormal lymph nodes, no rash. Neurologic--cranial nerves II through XII grossly intact. Rheumatologic--normal range of motion. Psychiatric--normal affect. Results & Data Vital Signs (Past 12 Hours) Vital Signs Temp Pulse Pulse Resp BP BP Pulse Ox 04/05/19 05:00 79 16 175/97 H 96 04/05/19 04:30 91 H 20 130/95 95 04/05/19 04:00 20 169/93 H 95 04/05/19 03:30 81 22 152/77 H 93 04/05/19 03:00 87 17 177/85 H 97 04/05/19 02:31 78 18 163/87 H 97 04/05/19 02:30 163/87 H 04/05/19 02:00 76 17 175/97 H 96 04/05/19 01:50 77 16 96 04/05/19 01:47 79 16 155/117 H 96 04/05/19 01:30 79 14 155/117 H 95 04/05/19 01:00 79 78 11 L 163/106 H 163/106 H 94 04/05/19 00:46 78 11 L 184/105 H 95 04/05/19 00:45 94 04/05/19 00:19 97.5 F L 89 20 199/101 H 97 Laboratory Results Laboratory Results WBC 7.57 K/uL (4.8-10.8) 04/05/19 00:00 RBC 4.86 M/uL (4.2-5.4) 04/05/19 00:00 Hgb 14.4 g/dL (12.0-16.0) 04/05/19 00:00 Hct 42.5 % (37-47) 04/05/19 00:00 MCV 87.4 fL (80-100) 04/05/19 00:00 MCH 29.6 pg (25-34) 04/05/19 00:00 MCHC 33.9 g/dL (32-36) 04/05/19 00:00 RDW Std Deviation 43.5 fL (36.4-46.3) 04/05/19 00:00 RDW Coeff of Oksana 13.6 % (11.5-14.5) 04/05/19 00:00 Plt Count 296 K/uL (130-400) 04/05/19 00:00 MPV 10.2 fL (7.4-10.4) 04/05/19 00:00 Immature Gran % (Auto) 0.1 % 04/05/19 00:00 Neut % (Auto) 50.1 % 04/05/19 00:00 Lymph % (Auto) 37.4 % 04/05/19 00:00 Throckmorton % (Auto) 9.1 % 04/05/19 00:00 Eos % (Auto) 2.9 % 04/05/19 00:00 Baso % (Auto) 0.4 % 04/05/19 00:00 Immature Gran # (Auto) 0.01 K/uL (0.00-0.02) 04/05/19 00:00 Neut # (Auto) 3.79 K/uL (1.4-6.5) 04/05/19 00:00 Lymph # (Auto) 2.83 K/uL (1.2-3.4) 04/05/19 00:00 Throckmorton # (Auto) 0.69 K/uL (0.11-0.59) H 04/05/19 00:00 Eos # (Auto) 0.22 K/uL (0-0.5) 04/05/19 00:00 Baso # (Auto) 0.03 K/uL (0-0.2) 04/05/19 00:00 PT 10.4 Seconds (9.0-12.0) 04/05/19 00:00 PT Cancelled 04/05/19 00:00 INR 1.0 (0.9-1.1) 04/05/19 00:00 INR Cancelled 04/05/19 00:00 D-Dimer 590 ug/L FEU (0-500) H* 04/05/19 00:00 Sodium 139 mmol/L (136-145) 04/05/19 00:00 Potassium 4.0 mmol/L (3.5-5.1) 04/05/19 00:00 Chloride 105 mmol/L (98-107) 04/05/19 00:00 Carbon Dioxide 25 mmol/L (21-32) 04/05/19 00:00 Anion Gap 9.0 (3-11) 04/05/19 00:00 BUN 22 mg/dl (7-18) H 04/05/19 00:00 Creatinine 0.99 mg/dl (0.6-1.2) 04/05/19 00:00 Est Cr Clr Drug Dosing 58.5 ml/min 04/05/19 00:00 Est GFR ( Amer) 66.4 04/05/19 00:00 Est GFR (Non-Af Amer) 57.3 04/05/19 00:00 BUN/Creatinine Ratio 22.5 (10-20) H 04/05/19 00:00 Glucose 135 mg/dl (70-99) H 04/05/19 00:00 Calcium 9.5 mg/dl (8.5-10.1) 04/05/19 00:00 Magnesium 2.1 mg/dl (1.8-2.4) 04/05/19 00:00 Total Bilirubin 0.3 mg/dl (0.2-1) 04/05/19 00:00 AST 30 U/L (15-37) 04/05/19 00:00 ALT 18 U/L (12-78) 04/05/19 00:00 Alkaline Phosphatase 80 U/L (45-117) 04/05/19 00:00 Troponin I 0.026 ng/ml (0-0.045) 04/05/19 00:00 NT-Pro-B Natriuret Pep 94 pg/ml (0-900) 04/05/19 00:00 Total Protein 7.9 gm/dl (6.4-8.2) 04/05/19 00:00 Albumin 3.8 gm/dl (3.4-5.0) 04/05/19 00:00 Globulin 4.1 gm/dl (2.5-4.0) H 04/05/19 00:00 Albumin/Globulin Ratio 0.9 (0.9-2) 04/05/19 00:00 Lipase 183 U/L (73-393) 04/05/19 00:00 TSH 6.110 uIu/ml (0.300-4.500) H 04/05/19 00:00 Code Status & VTE Plan Code Status Full code VTE Prophylaxis Plan VTE Prophylaxis will be ordered: Yes PG Care Time/CCT Total # of Minutes Spent Total Time Spent with Patient: Total time spent is greater than 50% in coordination of care (as documented) at patient's floor/unit and/or counseling patient:
--- NOTE | 2019-04-05 06:45 | CT Scan Report ---
CT ANGIOGRAM OF THE CHEST CLINICAL HISTORY: Atypical chest pain. Suspected pulmonary embolism. COMPARISON STUDY: Chest x-ray dated 04/05/2019, chest CT dated 01/23/2008 TECHNIQUE: Following the IV administration of 94 mL of Optiray-320, CT angiogram of the thorax was pe rformed from the thoracic inlet to the lung bases utilizing the pulmonary embolus protocol. Images ar e reviewed in the axial, sagittal, and coronal planes. IV contrast was administered without complicat ion. MIP imaging was performed. A dose lowering technique was utilized adhering to the principles of ALARA. CT DOSE: 472.74 mGy.cm FINDINGS: No pathologically enlarged axillary mediastinal or hilar lymph nodes were visualized. There was no evidence of thoracic aortic dilatation. There were no pulmonary artery filling defects to indicate acute pulmonary embolism. No pleural effusions are visualized. There are dependent atelectatic changes. There is lower lobe bronchial wall thickening and mucous plu gging. There is subtle groundglass attenuation the lungs with a mosaic pattern. This may indicate und erlying airway disease. There is a calcified left upper lobe granuloma. There is a relatively stable 5 x 9 mm pleural-based left lower lobe pulmonary nodule. IMPRESSION: 1. No evidence of acute pulmonary embolism 2. Lower lobe bronchial wall thickening with mucous plugging 3. Slight groundglass attenuation of the lungs with a mosaic pattern. Underlying airway disease is villanueva spected. Electronically signed by: Jus Amanda M.D. 04/05/2019 6:44 AM
--- NOTE | 2019-04-05 06:57 | XRay Report ---
XR chest 1V portable CLINICAL HISTORY: Atypical chest pain COMPARISON STUDY: 11/14/2018 FINDINGS: The heart is normal in size. There is a calcified left lung granuloma. There are calcified mediastinal lymph nodes on the left. There is no acute parenchymal consolidation. There is no failure . There are no pleural effusions.[ IMPRESSION: Old postinflammatory changes. No active disease in the chest. Electronically signed by: Jus Amanda M.D. 04/05/2019 6:55 AM
--- NOTE | 2019-04-05 07:04 | Ultrasound Report ---
ULTRASOUND RIGHT LOWER EXTREMITY VENOUS CLINICAL HISTORY: Right knee and calf pain. COMPARISON STUDY: No priors. TECHNIQUE: Real-time, grayscale, and color Doppler sonography of the deep veins of the right lower ex tremity was performed from the inguinal crease to the calf. Compression and augmentation were utilize d. FINDINGS: There is no sonographic evidence of deep venous thrombosis identified in the right lower ex tremity. The common femoral, superficial femoral, and popliteal veins are patent and normally lyn sible. The greater saphenous vein and the profunda femoris vein at the junction with the common femor al vein are clear. The visualized calf veins are patent. There is a small complex nonvascular collect ion identified in the right groin which measures 5.9 x 2.0 x 2.5 cm. IMPRESSION: 1. There is no sonographic evidence of deep venous thrombosis identified in the right lower extremity . 2. There is a 5.9 cm nonvascular complex fluid collection identified in the right groin. Differential considerations include seroma, hematoma, or abscess. Clinical correlation will be essential and clin ical follow-up to resolution is recommended. Electronically signed by: Royce Leiva M.D. 04/05/2019 7:02 AM
[2019-04-05] MEDS ORDERED: POLYETHYLENE (MIRALAX) 17 GM PACK PO PRN (07:07)
[2019-04-05] MEDS ORDERED: ACETAMINOPHEN 500 MG TAB PO PRN (07:07)
[2019-04-05] MEDS ORDERED: DEXTROSE 50% 50 ML SYRINGE IV PRN (07:07)
[2019-04-05] MEDS ORDERED: GLUCAGON FOR INJ 1 MG VIAL SQ PRN (07:07)
[2019-04-05] MEDS ORDERED: GLUCOSE 40% GEL 15 GM TUBE PO PRN (07:07)
[2019-04-05] MEDS ORDERED: ALUMINUM/MAGNESIUM SUSP 30 ML UDC PO PRN (07:07)
[2019-04-05] MEDS ORDERED: GLUCOSE 10 TABS/TUBE PO PRN (07:07)
[2019-04-05] MEDS ORDERED: ONDANSETRON INJ 2 MG/ML 2 ML VIAL IV PRN ×2 (07:07→15:04)
[2019-04-05] MEDS ORDERED: MAGNESIUM HYDROXIDE SUSP 30 ML UDC PO PRN (07:07)
[2019-04-05] MEDS ORDERED: CARBOHYDRATES FOR HYPOGLYCEMIA PO PRN (07:07)
[2019-04-05] MEDS ORDERED: METOPROLOL TARTRATE 1 MG/ML VIAL IV PRN (08:00)
[2019-04-05 08:51] LABS: Creatine Kinase MB 9.6 ng/ml (0.5-3.6)
[2019-04-05] MEDS ORDERED: HEPARIN SOD 5,000 UNIT/0.5 ML VIAL SQ SCH (09:00)
[2019-04-05] MEDS: NITROGLYCERIN 2% OINTMENT 30GM TUBE EXT SCH ×4 (09:05→23:26)
[2019-04-05] MEDS: INSULIN ASPART 100 UNITS/ML 3 ML PEN SC SCH ×4 (09:07→20:59)
[2019-04-05] MEDS: ASPIRIN 81 MG ECTAB PO SCH (09:08)
[2019-04-05] MEDS: ANASTROZOLE 1 MG TAB PO SCH (09:08)
[2019-04-05] MEDS: CALCIUM 600MG + VIT D 400 IU TAB PO SCH (09:08)
[2019-04-05] MEDS: METOPROLOL SUCC 50MG EXT REL TAB PO SCH (09:09)
[2019-04-05] MEDS: MULTIVITAMIN TAB PO SCH (09:09)
[2019-04-05] MEDS: BuPROPion SR 100 MG TABCR PO SCH (09:09)
[2019-04-05] MEDS: PANTOprazole 40 MG TAB PO SCH (09:09)
[2019-04-05] MEDS: MAGNESIUM OXIDE 400 MG TAB PO SCH (09:09)
[2019-04-05] MEDS: AMLODIPINE BESYLATE 5 MG TAB PO SCH (09:09)
[2019-04-05] MEDS: GABAPENTIN 100 MG CAP PO SCH ×2 (09:16→15:51)
--- NOTE | 2019-04-05 10:43 | Hospitalist Progress Note ---
Date of Service April 05, 2019 Assessment & Plan (1) NSTEMI (non-ST elevation myocardial infarction): s/p cardiac catheterization at [facility] in 2006, showed non obstructive disease Consult her event marketing manager Dr. Mendez. trop is 3.2 denies any CP start heparin drip (2) Hypertension: continue metoprolol and amlodipine (3) Diabetes mellitus, type 2: hold Invokana, glimepiride, metformin and sitagliptin. will use only sliding scale coverage check HgbA1C (4) Diabetic peripheral neuropathy: Continue gabapentin as per outpatient dosing. (5) Restless leg syndrome: Continue pramipexole ER 1.5 mg every evening. (6) Genital herpes simplex: Continue acyclovir 200 mg p.o. twice daily (7) Depression: Continue bupropion SR 100 mg p.o. daily (8) Dyslipidemia: Continue atorvastatin 40 mg in the evening. Check a fasting lipid panel (9) Degenerative joint disease: Hold NSAIDs during acute cardiac work-up Subjective patient was admitted today by Dr. Cao she had a typical chest pain referred to base of the neck currently chest pain free Results & Data Vital Signs (Past 12 Hours) Vital Signs Temp Pulse Pulse Resp BP BP BP 04/05/19 07:09 36.4 C L 81 16 148/86 H 04/05/19 06:45 73 16 94/62 L 04/05/19 06:03 79 18 135/85 04/05/19 05:00 79 16 175/97 H 04/05/19 04:30 91 H 20 130/95 04/05/19 04:00 20 169/93 H 04/05/19 03:30 81 22 152/77 H 04/05/19 03:00 87 17 177/85 H 04/05/19 02:31 78 18 163/87 H 04/05/19 02:30 163/87 H 04/05/19 02:00 76 17 175/97 H 04/05/19 01:50 77 16 04/05/19 01:47 79 16 155/117 H 04/05/19 01:30 79 14 155/117 H 04/05/19 01:00 79 78 11 L 163/106 H 163/106 H 04/05/19 00:46 78 11 L 184/105 H 04/05/19 00:45 04/05/19 00:19 36.4 C L 89 20 199/101 H Pulse Ox 04/05/19 07:09 96 04/05/19 06:45 96 04/05/19 06:03 94 04/05/19 05:00 96 04/05/19 04:30 95 04/05/19 04:00 95 04/05/19 03:30 93 04/05/19 03:00 97 04/05/19 02:31 97 04/05/19 02:30 04/05/19 02:00 96 04/05/19 01:50 96 04/05/19 01:47 96 04/05/19 01:30 95 04/05/19 01:00 94 04/05/19 00:46 95 04/05/19 00:45 94 04/05/19 00:19 97 PG Care Time/CCT Total # of Minutes Spent Total Time Spent with Patient: Total time spent is greater than 50% in coordination of care (as documented) at patient's floor/unit and/or counseling patient:
[2019-04-05 11:19] LABS: Chol HDL Ratio 3; Cholesterol 128 mg/dl (0-200); HDL Cholesterol 38 mg/dl; LDL Cholesterol Calculated 54 mg/dl; Triglycerides 180 mg/dl (0-150); VLDL Cholesterol 36 mg/dl
[2019-04-05] MEDS ORDERED: HEPARIN IV BOLUS 6,000 UNITS in SYRINGE 0 ML IV ONE (11:45)
[2019-04-05] MEDS ORDERED: HEPARIN SODIUM/DEXTROSE 25,000 UNITS/500 ML BAG IV SCH (11:45)
[2019-04-05] MEDS ORDERED: PERFLUTREN LIPID MICROSPHERE (DEFINITY) IV ONE (11:54)
--- NOTE | 2019-04-05 12:12 | Cardiology Consultation ---
Date of Consultation April 05, 2019 Assessment & Plan (1) NSTEMI (non-ST elevation myocardial infarction): 2. Type 2 diabetes 3. Hypertension 4. Dyslipidemia Presentation consistent NSTEMI. Is at elevated risk for adverse cardiac events and recommend proceeding with further invasive stratification. We will plan for cardiac catheterization later today via right radial artery. Please keep n.p.o. Agree with starting heparin infusion. Continue aspirin, beta-joe and statin. Further recommendations pending findings of catheterization. History of Present Illness Attending Physician: Kimberly Abernathy MD History of Present Illness Ms. Snell is a 69 year old woman with a history of coronary artery disease admitted in the setting of acute onset chest pain and suspected acute coronary syndrome. Patient previously followed by Dr. Mendez for her cardiac care last seen more than 2 years ago. Previously underwent a cardiac catheterization back in 2006 at [facility] and per documentation had a 90% diagonal stenosis that was managed medically. Since that time is had multiple stress tests which have been low risk. Other medical issues include type 2 diabetes, hypertension, dyslipidemia, GERD and restless leg syndrome. Last night while at rest developed substernal chest pain radiating to her neck. Pain lasted more than a half an hour before presenting to ED. Initial EKG unremarkable, initial troponin negative. In total pain lasted for about 4 hours. Chest pain-free this morning. Subsequent troponin elevated at 3.22. Patient states that current chest pain different than when previously experienced at time of catheterization. Reports 2 episodes in the past over the last several years, both short duration and nothing recent before last night. Allergies Allergy/AdvReac Type Severity Reaction Status Date / Time latex Allergy Intermediate SKIN Verified 04/10/19 11:07 IRRITATION gluten AdvReac Unknown "sleepiness Verified 04/10/19 11:07 " Patient History Surgical History Status post tonsillectomy (Acute) Status post cardiac catheterization (Resolved 2005) Status post total knee replacement (Resolved) History of arthroscopy RT KNEE History of cardiac cath 2003- NON-OBSTRUCTIVE CAD; NO STENTS History of cataract surgery History of colonoscopy History of dilation and curettage History of hysterectomy History of tonsillectomy History of tooth extraction History of total knee replacement LEFT KNEE X 2 Hx of lumpectomy LEFT BREAST LUMPECTOMY WITH AXILLARY LND (04/23/14= LMA #4 AT [facility]) Family History Family/Other Family history of diabetes mellitus Sister Chronic liver disease Mother Cancer Bone cancer Breast cancer Family/Other Cardiac disorder Diabetes Father Stroke Other Family history of heart attack Social History Preferred Language: Nepali Communication Ability: Effective Visual Impairment: No Limitations Furniture Polisher Required: No Beliefs That Will Affect Care: Alevism Alevism Beliefs: LATTER DAY marital status: Single Current Living Situation: Alone Feels Safe at Home: Yes Smoking Status: Never smoker Second Hand Exposure: No ; Hx Alcohol Use: No Hx Substance Use: No Review of Systems Review of Systems: All systems reviewed & are unremarkable except as noted in HPI & below Physical Exam Physical Exam: General: Comfortable, no acute distress Eyes: Sclerae anicteric, extraocular movements intact HENT: Oropharynx clear mucous membranes moist Neck: Normal carotid upstrokes, no bruits. Lungs: Clear to auscultation bilaterally, no rhonchi or wheezes Cardiac: Regular rate and rhythm, no murmurs, rubs or gallops. Vascular: 2+ radial, DP and PT pulses. Abdomen: Soft, nontender, nondistended, positive bowel sounds. Extremities: Well perfused, no peripheral edema Skin: No rashes or lesions. Neuro: Nonfocal Psych: Alert orient x3, normal affect and mood Results & Data Vital Signs (Past 12 Hours) Vital Signs Temp Pulse Pulse Resp BP BP BP 04/05/19 08:00 97.7 F 83 20 123/76 04/05/19 07:09 97.5 F L 81 16 148/86 H 04/05/19 06:45 73 16 94/62 L 04/05/19 06:03 79 18 135/85 04/05/19 05:00 79 16 175/97 H 04/05/19 04:30 91 H 20 130/95 04/05/19 04:00 20 169/93 H 04/05/19 03:30 81 22 152/77 H 04/05/19 03:00 87 17 177/85 H 04/05/19 02:31 78 18 163/87 H 04/05/19 02:30 163/87 H 04/05/19 02:00 76 17 175/97 H 04/05/19 01:50 77 16 04/05/19 01:47 79 16 155/117 H 04/05/19 01:30 79 14 155/117 H 04/05/19 01:00 79 78 11 L 163/106 H 163/106 H 04/05/19 00:46 78 11 L 184/105 H 04/05/19 00:45 04/05/19 00:19 97.5 F L 89 20 199/101 H Pulse Ox 04/05/19 08:00 96 04/05/19 07:09 96 04/05/19 06:45 96 04/05/19 06:03 94 04/05/19 05:00 96 04/05/19 04:30 95 04/05/19 04:00 95 04/05/19 03:30 93 04/05/19 03:00 97 04/05/19 02:31 97 04/05/19 02:30 04/05/19 02:00 96 04/05/19 01:50 96 04/05/19 01:47 96 04/05/19 01:30 95 04/05/19 01:00 94 04/05/19 00:46 95 04/05/19 00:45 94 04/05/19 00:19 97 PG Care Time/CCT Total # of Minutes Spent Total Time Spent with Patient: Total time spent is greater than 50% in coordination of care (as documented) at patient's floor/unit and/or counseling patient:
[2019-04-05] MEDS ORDERED: TICAGRELOR 90 MG TAB PO ONE (14:54)
--- NOTE | 2019-04-05 14:56 | Pre Anesthesia Assessment ---
Date of Service April 05, 2019 Pre Sedation Assessment Vital Signs Temp Pulse Pulse Resp BP BP BP 04/05/19 08:00 97.7 F 83 20 123/76 04/05/19 07:09 97.5 F L 81 16 148/86 H 04/05/19 06:45 73 16 94/62 L 04/05/19 06:03 79 18 135/85 04/05/19 05:00 79 16 175/97 H 04/05/19 04:30 91 H 20 130/95 04/05/19 04:00 20 169/93 H 04/05/19 03:30 81 22 152/77 H 04/05/19 03:00 87 17 177/85 H 04/05/19 02:31 78 18 163/87 H 04/05/19 02:30 163/87 H 04/05/19 02:00 76 17 175/97 H 04/05/19 01:50 77 16 04/05/19 01:47 79 16 155/117 H 04/05/19 01:30 79 14 155/117 H 04/05/19 01:00 79 78 11 L 163/106 H 163/106 H 04/05/19 00:46 78 11 L 184/105 H 04/05/19 00:45 04/05/19 00:19 97.5 F L 89 20 199/101 H Pulse Ox 04/05/19 08:00 96 04/05/19 07:09 96 04/05/19 06:45 96 04/05/19 06:03 94 04/05/19 05:00 96 04/05/19 04:30 95 04/05/19 04:00 95 04/05/19 03:30 93 04/05/19 03:00 97 04/05/19 02:31 97 04/05/19 02:30 04/05/19 02:00 96 04/05/19 01:50 96 04/05/19 01:47 96 04/05/19 01:30 95 04/05/19 01:00 94 04/05/19 00:46 95 04/05/19 00:45 94 04/05/19 00:19 97 Cardiovascular RRR, no murmur, no edema Respiratory normal respiratory effort, lungs clear to auscultation Pre-Sedation Airway Assessment Smoking Status: Never smoker Hx Sleep Apnea: No Hx Difficult Intubation: No Short, Thick Neck: No Thyromental Distance: > or= 3.5 Finger Breadths Oral Cavity: + WNL Mallampati Class: III Procedure Planning Contraindications for Sedation: none Current Medications Reviewed: Yes Notes The planned sedation has been discussed with the patient. Informed Consent was obtained. I have identified the patient, determined the appropriateness of sedation and have assessed the patient immediately prior to the procedure. All medicine(s) and interventions are by my order.
--- NOTE | 2019-04-05 14:56 | Post Anesthesia Assessment ---
Date of Service April 05, 2019 Post Sedation Assessment Vital Signs Temp Pulse Pulse Resp BP BP BP 04/05/19 08:00 97.7 F 83 20 123/76 04/05/19 07:09 97.5 F L 81 16 148/86 H 04/05/19 06:45 73 16 94/62 L 04/05/19 06:03 79 18 135/85 04/05/19 05:00 79 16 175/97 H 04/05/19 04:30 91 H 20 130/95 04/05/19 04:00 20 169/93 H 04/05/19 03:30 81 22 152/77 H 04/05/19 03:00 87 17 177/85 H 04/05/19 02:31 78 18 163/87 H 04/05/19 02:30 163/87 H 04/05/19 02:00 76 17 175/97 H 04/05/19 01:50 77 16 04/05/19 01:47 79 16 155/117 H 04/05/19 01:30 79 14 155/117 H 04/05/19 01:00 79 78 11 L 163/106 H 163/106 H 04/05/19 00:46 78 11 L 184/105 H 04/05/19 00:45 04/05/19 00:19 97.5 F L 89 20 199/101 H Pulse Ox 04/05/19 08:00 96 04/05/19 07:09 96 04/05/19 06:45 96 04/05/19 06:03 94 04/05/19 05:00 96 04/05/19 04:30 95 04/05/19 04:00 95 04/05/19 03:30 93 04/05/19 03:00 97 04/05/19 02:31 97 04/05/19 02:30 04/05/19 02:00 96 04/05/19 01:50 96 04/05/19 01:47 96 04/05/19 01:30 95 04/05/19 01:00 94 04/05/19 00:46 95 04/05/19 00:45 94 04/05/19 00:19 97 Recovery Score Activity: Moves 4 extremities Respiration: Deep Breath/Cough Circulation: +/-20% PreAnes Value Consciousness: Fully Awake Oxygen Saturation: O2 needed for >90% Discharge Sedation Level of Care: Fast Track Phase II Post Sedation Plan On clinical assessment, the patient appears to have tolerated the sedation without complications. Patient is recovering as anticipated. Patient will continue to be monitored by nursing and may be discharged when sedation discharge criteria are met per below protocol. Upon Completions of procedure and additional 15 minutes continue every 5 minute vital signs and the P.A.R. score; then discharge to a Phase I or Fast Track to Phase II per the following guidelines: * Discharge Patient to appropriate Phase II area if PAR is 8 or greater or return to pre- procedure baseline. The post - procedure orders will be as directed. * If PAR score is less than 8 or not return to pre-procedure baseline then patient will follow Phase I monitoring till PAR is reached for Phase II. The Phase I may be done in procedure room or may call to secure a Phase I area. * If naloxone or flumazenil are used for reversal, hold in Phase I for continued monitoring from when last reversal dose was given for a minimum of 60 minutes or longer pending the nurse and/or physician discretion of patient condition before discharge to Phase II. Please call the Sedation Physician to re-evaluate and complete post-note for discharge to Phase II area. Do NOT discharge from procedure sedation or Phase 1 until post- sedation evaluation note is complete by procedure /sedation MD Sedation Discharge Instructions to be given to the patient at discharge to home.
--- NOTE | 2019-04-05 15:04 | Cardiac Catheterization ---
[facility] Data: Nut Sorter Cardiac Status Clinical evaluation leading to the procedure CAD Presenation: Non STEMI Anginal Classification: CCS IV Heart Failure: No Cardiogenic Shock within 24 Hours: No Cardiac Arrest within 24 Hours: No Imaging Studies Past 6 Months: Yes Stress Studies Past 6 Months: No Diagnostic Physicians Name: Modesto Brock MD Status: Elective Closure Device Percutaneous Entry Location: Radial Closure Device: Radial Band Recommendations: PCI without planned CABG PCI Indication: PCI for high risk Non-BELLA Lesion Segment Name: Mid RCA Culprit Artery: Yes Stenosis Prior to Rx (%): 80 Chronic Total Occlusion: No IVUS: No FFR: No Pre-Procedure BARB Flow: 3 Previously Treated Lesion: No Lesion Complexity: Non-High/Non-C Lesion Length (mm): 12 Thrombus Present: Yes Bifurcation Lesion: No Guidewire Across Lesion: Stenosis Post-Procedure (%): 0 Post-Procedure BARB Flow: 3 Devices(s) Deployed: Yes Yes Intraprocedure Events Significant Disection: No Perforation: No Cardiac Cath Procedure Full Procedure Date April 05, 2019 Pre-Procedure Diagnosis Pre-Procedure Diagnosis: Non STEMI AUC Score AUC Score: 8 Post-Procedure Diagnosis Post-Procedure Diagnosis: Severe CAD, Successful PCI and Normal Intracardiac Pr essures Procedure(s) Performed Procedure(s) Performed: Coronary Angiography, Left Heart Cath and Drug Eluting Stent Hair Specialist Modesto Brock MD Web Graphic Designer(s) Eleanor Estimated Blood Loss Estimated Blood Loss: 15 Medication(s) Medication(s): Fentanyl, Heparin, Lidocaine 1%, Nicardipine, Nitroglycerin and Versed Medication(s): Ticagrelor Summary of Findings Indication: High risk NSTEMI Access: 6 Fr right radial artery Catheters: [place]junior, AR-1 guide Findings: LM -Short, no significant disease LAD -moderate caliber vessel, 20 to 30% proximal to mid disease, small to moderate caliber second diagonal with 95% proximal stenosis. Circumflex -large caliber vessel, angiographically normal, gives off large OM 3, PLB without significant disease RCA -anterior takeoff, dominant, large caliber vessel, 80% hazy mid segment stenosis, distal luminal irregularities. LVEDP -8 -- PCI -- Antithrombotic therapy: Heparin, ticagrelor Procedure: RCA cannulated with AR-1 guide BMW wire passed across lesion into distal vessel Mid RCA lesion predilated with 2.5 compliant balloon Dilated lesion stented with 3.0 x 18 mm Nick drug-eluting stent Stent post-dilated with 3.25 noncompliant balloon IC vasodilators administered for spasm Post procedure BARB 3 flow, stent well expanded with minimal residual stenosis and no apparent cardiac complications. Arterial Closure: TR band Summary: 1. Acute 80% mid RCA stenosis 2. 95% proximal stenosis in small to moderate caliber second diagonal 3. Normal intracardiac filling pressure 4. Successful PCI of mid RCA with single drug-eluting stent (3.0 x 18 mm Nick; postdilated with 3.25 NC). Recommendations: To PCU for continued monitoring Loaded with ticagrelor 180 mg in analytical laboratory technician Continue dual-antiplatelet therapy for at least one year Continue statin, and ASCVD risk factor modification Continued medical management of diagonal disease previously described on cath more than 10 years ago Consult cardiac Rehab Hemodynamics Rest Ao:: -- Final Ao: -- LV: -- Recommendations Recommendations: PCI without planned CABG Radiation Exposure (mGy) -- Contrast (mls) -- Drains Drains: None Anesthesia Moderate Procedural Complication(s) None Disposition PCU
[2019-04-05] MEDS ORDERED: SODIUM CHLORIDE 0.9% 1000ML 1,000 ML IV SCH (15:15)
[2019-04-05] MEDS: ACETAMINOPHEN 325 MG TAB PO PRN (17:44)
[2019-04-05] MEDS ORDERED: TRAMADOL HCL 50 MG TABLET PO PRN (18:22)
[2019-04-05] MEDS ORDERED: GABAPENTIN 100 MG CAP PO SCH (21:00)
[2019-04-05] MEDS ORDERED: PRAMIPEXOLE DIHYDROCHLORIDE 1 MG TAB PO SCH (21:00)
[2019-04-05] MEDS ORDERED: ATORVASTATIN 40 MG TAB PO SCH (21:00)
[2019-04-05] MEDS ORDERED: PRAMIPEXOLE DIHYDROCHLO 0.5 MG TAB PO SCH (21:00)
[2019-04-05] MEDS: CARBIDOPA/LEVODOPA 25/100MG TAB PO PRN (21:57)
[2019-04-06] MEDS: TICAGRELOR 90 MG TAB PO SCH ×2 (03:33→11:30)
[2019-04-06] MEDS: CARBIDOPA/LEVODOPA 25/100MG TAB PO PRN (03:36)
[2019-04-06] MEDS: NITROGLYCERIN 2% OINTMENT 30GM TUBE EXT SCH (05:13)
[2019-04-06] MEDS: ACETAMINOPHEN 325 MG TAB PO PRN (05:17)
[2019-04-06 05:45] LABS: Estimated Average Glucose 174 mg/dl; Hemoglobin A1C 7.7 % (4.5-5.6)
[2019-04-06] MEDS: INSULIN ASPART 100 UNITS/ML 3 ML PEN SC SCH (08:53)
[2019-04-06] MEDS: ASPIRIN 81 MG ECTAB PO SCH (08:55)
[2019-04-06] MEDS: MULTIVITAMIN TAB PO SCH (08:55)
[2019-04-06] MEDS: CALCIUM 600MG + VIT D 400 IU TAB PO SCH (08:55)
[2019-04-06] MEDS: ANASTROZOLE 1 MG TAB PO SCH (08:55)
[2019-04-06] MEDS: MAGNESIUM OXIDE 400 MG TAB PO SCH (08:55)
[2019-04-06] MEDS: GABAPENTIN 100 MG CAP PO SCH (08:56)
[2019-04-06] MEDS: AMLODIPINE BESYLATE 5 MG TAB PO SCH (08:56)
[2019-04-06] MEDS: PANTOprazole 40 MG TAB PO SCH (08:56)
[2019-04-06] MEDS: METOPROLOL SUCC 50MG EXT REL TAB PO SCH (08:57)
[2019-04-06] MEDS: BuPROPion SR 100 MG TABCR PO SCH (08:57)
--- NOTE | 2019-04-06 10:28 | Discharge Summary ---
Date of Service April 06, 2019 Admission HPI Per Admitting Provider The patient is a 69-year-old female with a past medical history including hypertension, hyperlipidemia, diabetes mellitus, GERD, neuropathy, and restless legs, presents to the emergency department with substernal chest pressure that occurred while laying down for sleep earlier this morning. Upon arrival in the emergency department, she underwent appropriate work-up, and had relief of the chest pressure with the application of nitroglycerin sublingual paste. She has a very strong family history of heart disease, with siblings who have either of heart disease or have had stents placed. Principal Diagnosis Non-ST elevation myocardial infarction Status post PCI of of mid RCA with single drug-eluting stent persistent lesion 95% proximal stenosis in small to moderate caliber second diagonal Coronary artery disease Essential hypertension Diabetes mellitus on oral hypoglycemics Dyslipidemia, controlled Depression Genital herpes simplex Restless leg syndrome Diabetic peripheral neuropathy Discharge Exam Physical examination General patient appears to be comfortable, not in acute distress HEENT: Atraumatic , normocephalic /no jaundice /no pallor /anicteric /no dry mucous membrane /normal external ear inspection Neck: Supple /no swelling /central trach Heart: S1/S2 normal/regular rate and rhythm/no gallop /no rub /no murmur Lungs: Clear to auscultation bilaterally/normal chest with expansion/no rhonchi/no rales/no wheezing/no use of accessory muscles of respiration Abdomen: Soft/nontender/no guarding/no rebound/no organomegaly/no pulsatile mass Musculoskeletal: No swelling/no edema/no tenderness/normal range of motion Neuro exam: Awake alert oriented 3/cranial nerves II through XII appear to be intact/sensation intact/moves all extremities/no abnormal movements Psychiatric evaluation: No depressed mood/normal affect Skin: No rash on exposed skin area/no erythema Extremity: Normal pulse/no pitting edema/no clubbing or cyanosis Endocrine/lymphatic: No obvious lymphadenopathy /no lymphedema Discharge Data Allergies Allergy/AdvReac Type Severity Reaction Status Date / Time latex Allergy Intermediate SKIN Verified 04/05/19 01:55 IRRITATION gluten AdvReac Unknown "sleepiness Verified 04/05/19 01:55 " Consultations 04/05/19 05:08 ED Decision to Admit Stat 04/05/19 07:07 Consult Cardiology Routine Consult Case Management - Discharge Planning Routine 04/05/19 15:06 Consult Cardiac Rehabilitation Routine Procedures Performed Operation Date: 04/05/19 13:00 Actual Procedures p Cath, Left with Cors and Vent - Clive Brock MD s Cineradiography w/Routine Exam - Clive Brock MD p Drug Eluting Stent SGl Vessel - Clive Brock MD [facility] Data: Outpatient Pharmacy Manager Cardiac Status Clinical evaluation leading to the procedure CAD Presenation: Non STEMI Anginal Classification: CCS IV Heart Failure: No Cardiogenic Shock within 24 Hours: No Cardiac Arrest within 24 Hours: No Imaging Studies Past 6 Months: Yes Stress Studies Past 6 Months: No Diagnostic Physicians Name: Modesto Brock MD Status: Elective Closure Device Percutaneous Entry Location: Radial Closure Device: Radial Band Recommendations: PCI without planned CABG PCI Indication: PCI for high risk Non-BELLA Lesion Segment Name: Mid RCA Culprit Artery: Yes Stenosis Prior to Rx (%): 80 Chronic Total Occlusion: No IVUS: No FFR: No Pre-Procedure BARB Flow: 3 Previously Treated Lesion: No Lesion Complexity: Non-High/Non-C Lesion Length (mm): 12 Thrombus Present: Yes Bifurcation Lesion: No Guidewire Across Lesion: Stenosis Post-Procedure (%): 0 Post-Procedure BARB Flow: 3 Devices(s) Deployed: Yes Yes Intraprocedure Events Significant Disection: No Perforation: No Cardiac Cath Procedure Full Procedure Date April 05, 2019 Pre-Procedure Diagnosis Pre-Procedure Diagnosis: Non STEMI AUC Score AUC Score: 8 Post-Procedure Diagnosis Post-Procedure Diagnosis: Severe CAD, Successful PCI and Normal Intracardiac Pressures Procedure(s) Performed Procedure(s) Performed: Coronary Angiography, Left Heart Cath and Drug Eluting Stent Him Specialists Modesto Brock MD Medicine Assistant(s) Eleanor Estimated Blood Loss Estimated Blood Loss: 15 Medication(s) Medication(s): Fentanyl, Heparin, Lidocaine 1%, Nicardipine, Nitroglycerin and Versed Medication(s): Ticagrelor Summary of Findings Indication: High risk NSTEMI Access: 6 Fr right radial artery Catheters: EMMA Pa-Bronson guide Findings: LM -Short, no significant disease LAD -moderate caliber vessel, 20 to 30% proximal to mid disease, small to moderate caliber second diagonal with 95% proximal stenosis. Circumflex -large caliber vessel, angiographically normal, gives off large OM 3, PLB without significant disease RCA -anterior takeoff, dominant, large caliber vessel, 80% hazy mid segment stenosis, distal luminal irregularities. LVEDP -8 -- PCI -- Antithrombotic therapy: Heparin, ticagrelor Procedure: RCA cannulated with AR-1 guide BMW wire passed across lesion into distal vessel Mid RCA lesion predilated with 2.5 compliant balloon Dilated lesion stented with 3.0 x 18 mm Nick drug-eluting stent Stent post-dilated with 3.25 noncompliant balloon IC vasodilators administered for spasm Post procedure BARB 3 flow, stent well expanded with minimal residual stenosis and no apparent cardiac complications. Arterial Closure: TR band Summary: 1. Acute 80% mid RCA stenosis 2. 95% proximal stenosis in small to moderate caliber second diagonal 3. Normal intracardiac filling pressure 4. Successful PCI of mid RCA with single drug-eluting stent (3.0 x 18 mm [place]; postdilated with 3.25 NC). Recommendations: To PCU for continued monitoring Loaded with ticagrelor 180 mg in bolt labeler Continue dual-antiplatelet therapy for at least one year Continue statin, and ASCVD risk factor modification Continued medical management of diagonal disease previously described on cath more than 10 years ago Consult cardiac Rehab Recommendations Recommendations: PCI without planned CABG Drains Drains: None Anesthesia Moderate Procedural Complication(s) None Disposition PCU Signed By: Created: 04/05/19 1456 Ordered Studies 04/05/19 02:12 CT angio chest PE protocol Urgent 04/05/19 05:11 US venous doppler LE RT Urgent 04/05/19 13:23 CL Cath Imgs for PACS use only Stat Hospital Course (1) NSTEMI (non-ST elevation myocardial infarction): Patient was admitted to ICU, found to have positive troponin, that went up to 3.2 She was started on heparin drip, plus aspirin plus nitroglycerin patch Seen by windows support engineer, s/p cardiac catheterization on 04/05 Status post PCI of of mid RCA with single drug-eluting stent persistent lesion 95% proximal stenosis in small to moderate caliber second diagonal Tolerated the procedure well Was started on Brilinta and aspirin after the procedure (2) Hypertension: continue metoprolol and amlodipine (3) Diabetes mellitus, type 2: Initially we had to hold her oral regimen, Invokana, glimepiride, metformin and sitagliptin. We used only sliding scale coverage HgbA1C 7.7 She was restarted on her oral regimen upon discharge and instructed to control diet more (4) Diabetic peripheral neuropathy: She was continued gabapentin as per outpatient dosing. (5) Restless leg syndrome: She was continued on pramipexole ER 1.5 mg every evening. (6) Genital herpes simplex: She was continued on acyclovir 200 mg p.o. twice daily (7) Depression: She was continued on bupropion SR 100 mg p.o. daily (8) Dyslipidemia: She was continued on atorvastatin 40 mg in the evening. fasting lipid panel showed LDL of 54 (9) Degenerative joint disease: Hold NSAIDs during acute cardiac work-up Total Time Total Time Spent Total Time Spent (In Minutes): 35 minutes total time spent is greater than 50% in coordination of care (as documented) at patient's floor/unit and/or counseling patient/family discussion of care with nursing staff Discharge Plan Discharge Items Patient Disposition: Home - Self-Care Reason For Visit: acs Discharge Diagnosis: Non-ST elevation myocardial infarction Status post PCI of of mid RCA with single drug-eluting stent persistent lesion 95% proximal stenosis in small to moderate caliber second diagonal Coronary artery disease Essential hypertension Diabetes mellitus on oral hypoglycemics Dyslipidemia, controlled Depression Genital herpes simplex Restless leg syndrome Diabetic peripheral neuropathy Condition: Good Discharge Goals: Decrease discomfort, Improve function and Increase independence Activity: Resume your previous activity Lifting: Gradually increase as tolerated Bathing: No limitations Exercise/Sports: Wait until after follow-up appointment Driving/Machine Use: Resume 1 day after discharge Weightbearing: Full weightbearing Non-emergency contact: Primary Care Provider and [facility] Call non-emergency contact if: you have any medication questions and your pain is concerning for you Follow-up/Referrals: Yvonne Gaytan PA-C [Primary Care Provider] - Diet: Carb Consistent or DM2 Addtl Provider Instructions: Since you are now on Brilinta and aspirin you should not take any vstv-[id number] pain medication except Tylenol, as all other medications rtry-vts-[id number], ibuprofen, Motrin, Aleve, naproxen can cause your blood to be more thin, if you have severe pain that cannot controlled by Tylenol then take Ultram that was prescribed Prescriptions: New Brilinta 90 mg Tablet 90 mg PO BID Qty: 60 RF: 13 tramadol 50 mg Tablet 50 mg PO Q8H PRN (Reason: Pain, Severe) Qty: 20 RF: 0 Continued acyclovir 200 mg Capsule 200 mg PO BID Qty: 0 RF: 0 pantoprazole [Protonix] 40 mg Tablet,Delayed Release (Dr/Ec) 40 mg PO QAM Qty: 0 RF: 0 amlodipine 5 mg tablet 5 mg PO DAILY Qty: 0 RF: 0 anastrozole 1 mg tablet 1 mg PO DAILY Qty: 0 RF: 0 glimepiride 4 mg tablet 4 mg PO DAILY Qty: 0 RF: 0 atorvastatin [Lipitor] 40 mg tablet 40 mg PO HS 90 Days Qty: 90 RF: 3 metoprolol succinate [Toprol XL] 100 mg tablet extended release 24 hr 100 mg PO DAILY Qty: 90 RF: 3 gabapentin 300 mg capsule See Patient Comments .ROUTE .COMPLEX 30 Days Qty: 150 RF: 3 amoxicillin 500 mg capsule 2,000 mg PO UD PRN (Reason: BEFORE DENTAL PROCEDURE) Qty: 0 RF: 0 magnesium oxide 400 mg magnesium capsule 400 mg PO QAM Qty: 0 RF: 0 bupropion HCl 100 mg tablet sustained-release 12 hr 100 mg PO DAILY RF: 0 Invokana 300 mg tablet 300 mg PO DAILY RF: 0 carbidopa-levodopa 25-100 mg tablet 1 - 2 tab PO TID PRN (Reason: RESTLESS LEGS SYMPTOMS) Qty: 90 RF: 0 sitagliptin-metformin 50-1,000 mg tablet 1 tab PO BID Qty: 180 RF: 0 pramipexole 1.5 mg tablet extended release 24 hr 1 mg PO QPM Qty: 30 RF: 0 diclofenac sodium 1 % gel 4 gm TOP QID Qty: 100 RF: 2 aspirin [Adult Low Dose Aspirin] 81 mg tablet,delayed release (DR/EC) 81 mg PO DAILY RF: 0 calcium carbonate-vitamin D3 500mg (1,250mg) -600 unit tablet 1 tab PO DAILY RF: 0 multivitamin Tablet 1 tab PO DAILY RF: 0 acetaminophen [Tylenol Extra Strength] 500 mg Tablet 500 mg PO Q6H PRN (Reason: Pain) RF: 0 Janumet 50-1,000 mg Tablet 1 tab PO BID RF: 0 Invokana 300 mg Tablet 300 mg PO DAILY RF: 0 Discontinued ibuprofen [Advil] 200 mg Tablet 200 mg PO TID PRN (Reason: Pain) RF: 0 Stand-Alone Forms: Call Back Authorization, [facility] Discharge Orders: Discharge Order (Routine); Ordered 04/06/19 Ordered By: Kimberly Abernathy Admission Data Admit Date/Time: 04/05/19 05:35 Attending Provider: Kimberly Benson Admit Provider: Jaylan Cao Primary Care Provider: Yvonne Gaytan Other Providers: Jaylan Cao ; Emerson Mnedez Jr Service: Telemetry
--- NOTE | 2019-04-06 10:48 | Cardiology Progress Note ---
Date of Service April 06, 2019 Assessment & Plan (1) NSTEMI (non-ST elevation myocardial infarction): 2. Type 2 diabetes 3. Hypertension 4. Dyslipidemia Patient doing well this morning without recurrent chest pain, hemodynamically and electrically stable. From a cardiac standpoint okay for discharge today. Home on DAPT with aspirin, ticagrelor continue statin, continue current beta-joe. Likely transition amlodipine to PETRONA inhibitor as an outpatient. Follow-up with cardiology in 2 to 3 weeks. Subjective Patient feeling well today. No residual chest pain. Breathing comfortably. Telemetry reviewedno events. Review of Systems Review of Systems: All systems reviewed & are unremarkable except as noted in HPI & below Physical Exam Physical Exam: General: Comfortable, no acute distress HEENT: Sclerae anicteric, mucous membranes moist Lungs: Clear to auscultation bilaterally, no rhonchi or wheezes Cardiac: Regular rate and rhythm, no murmurs. Abdomen: Soft, nontender, nondistended, positive bowel sounds. Extremities: Warm, well perfused, no edema. Right radial artery access site with minimal ecchymosis, no hematoma. Distal pulse and sensation intact. Skin: No rashes or lesions. Neuro: Nonfocal Psych: Alert orient x3, normal affect and mood Results & Data Vital Signs (Past 12 Hours) Vital Signs Temp Pulse Pulse Resp BP BP Pulse Ox 04/06/19 08:00 98.4 F 86 22 129/72 97 04/06/19 03:40 97.9 F 78 16 149/82 H 98 04/06/19 00:17 83 04/05/19 23:19 97.9 F 68 16 114/64 97 04/05/19 23:00 68 16 120/61 94 PG Care Time/CCT Total # of Minutes Spent Total Time Spent with Patient: Total time spent is greater than 50% in coordination of care (as documented) at patient's floor/unit and/or counseling patient:
[2019-04-11 18:00] LABS: CK Total 137 U/L (29-143); CK-MB 2 % (<5); CK-MM 83 % (95-100)
== END 2019-04-06 11:38 | disposition home or self-care (01) ==
LOC: ED 00:11 → 1E 00:11 → SUATTDRO 05:35 → 1E 06:45
DX: F32.9 Major depressive disorder, single episode, unspecified; E78.5 Hyperlipidemia, unspecified; I10 Essential (primary) hypertension; G25.81 Restless legs syndrome; R07.9 Chest pain, unspecified; E11.42 Type 2 diabetes mellitus with diabetic polyneuropathy; E11.65 Type 2 diabetes mellitus with hyperglycemia

== ENCOUNTER 2021-02-17 14:22 | Observation (INO) ==
[2021-02-17 14:49] LABS: Basophils # (auto) 0.02 K/uL (0-0.2); Basophils % (auto) 0.3 %; Eosinophils # (auto) 0.35 K/uL (0-0.5); Eosinophils % (auto) 5.1 %; Hematocrit (blood only) 42.8 % (37-47); Immature Granulocytes # (auto) 0.01 K/uL (0.00-0.02); Immature Granulocytes % (auto) 0.1 %; Lymphocytes # (auto) 2.54 K/uL (1.2-3.4); Lymphocytes % (auto) 36.8 %; Mean Corpuscular Hemoglobin 28.2 pg (25-34); Mean Corpuscular Hgb Conc 32.7 g/dL (32-36); Mean Corpuscular Volume 86.1 fL (80-100); Monocytes # (auto) 0.49 K/uL (0.11-0.59); Monocytes % (auto) 7.1 %; Neutrophils % (auto) 50.6 %; Platelet Count 342 K/uL (130-400); RDW Coefficient of Variation 14.2 % (11.5-14.5); RDW Standard Deviation 44.4 fL (36.4-46.3); Red Blood Count 4.97 M/uL (4.2-5.4); White Blood Count 6.91 K/uL (4.8-10.8)
[2021-02-17 15:08] LABS: BUN Creatinine Ratio 38.1 (10-20); Creatinine Clr Calc Pharmacy 67.1 ml/min; Est GFR (African American) 83.5 ml/min; Est GFR (Non-African American) 72.1 ml/min; Partial Thromboplastin Time 26.4 Seconds (21.0-31.0); Potassium 4.3 mmol/L (3.5-5.1); Prothrombin Time 10.1 Seconds (9.0-12.0)
[2021-02-17 15:13] LABS: Bilirubin,Total 0.5 mg/dl (0.2-1); Troponin I 0.025 ng/ml (0-0.045)
--- NOTE | 2021-02-17 16:04 | Electrocardiogram Report ---
Test Reason : Blood Pressure : / mmHG Vent. Rate : 081 BPM Atrial Rate : 081 BPM P-R Int : 166 ms QRS Dur : 088 ms QT Int : 380 ms P-R-T Axes : 013 045 038 degrees QTc Int : 441 ms Normal sinus rhythm Normal ECG When compared with ECG of 10-AUG-2019 13:10, No significant change was found Confirmed by Edgar Michaud ([id number]) on 02/17/2021 4:04:18 PM Referred By: Confirmed By:Edgar Michaud
[2021-02-17] MEDS ORDERED: ALUMINUM/MAGNESIUM SUSP 30 ML UDC PO STA (16:27)
[2021-02-17] MEDS ORDERED: ASPIRIN CHEW 324 MG PO STA (16:27)
--- NOTE | 2021-02-17 16:40 | Emergency Department Note ---
Impression & Plan Chest pain ED Provider Note NAME: TRACY SABILLON AGE: 71 SEX: F : 1950 ARRIVES VIA: Walk-In INFORMANT: Patient, ED PROVIDER(S): Edgar Call DO CHIEF COMPLAINT: Chest pain the patient is a 71-year-old female who presented to the emergency department for an evaluation of chest pain. The patient describes HPI: Chest pain which is across the anterior chest. She describes it as a pressure. She also states that she has a sore throat and earache along with this pain. She states that she had a similar percent in 2019. At that time she was admitted to the hospital and in the morning her troponin was elevated. She had a cardiac catheterization which did reveal a culprit lesion in the patient received a stent. She was shopping yesterday when she started having similar chest pain. She took a total of 4 nitroglycerin with resolution of symptoms. The pain lasted approximately 15 to 20 minutes. She states the pain has significantly improved since that time. She denies having any shortness of breath nausea or vomiting. She denies having any lower extremity swelling. She did not see her family doctor for the symptoms. She states that otherwise she has been compliant with all of her outpatient medications. ROS: See above HPI for pertinent positives & negatives. A total of 10 systems reviewed and were otherwise negative. PAST MEDICAL HISTORY: See Below PAST SURGICAL HISTORY: See Below FAMILY HISTORY: See Below SOCIAL HISTORY: See Below HOME MEDICATIONS: See Below ALLERGIES: See Below VITALS: See Below PHYSICAL EXAMINATION: GENERAL: Patient is awake alert in no acute distress patient is resting comfortably and showing no signs of anxiety EYES: The conjunctivae are clear. The pupils are round and reactive. EARS, NOSE, MOUTH AND THROAT: The nose is without any evidence of any deformity. NECK: The neck is nontender and supple. RESPIRATORY: Normal respiratory effort is noted there is no evidence of wheezing rhonchi or rales CARDIOVASCULAR: Regular rate and rhythm noted there no murmurs rubs or gallops normal S1 normal S2. GASTROINTESTINAL: The abdomen is soft. Abdomen is nontender. MUSCULOSKELETAL/EXTREMITIES: There is no evidence of gross deformity full range of motion is noted in the hips and shoulders. SKIN: There is no obvious evidence of any rash. There are no petechiae, pallor or cyanosis noted. NEUROLOGIC: Patient is awake alert and oriented x3. MEDICAL DECISION MAKING: The patient is a 71-year-old female who presented to the emergency department for chest pain. The patient describes chest pain which is in her upper chest and into her neck. She states she had similar episodes in the past which was found to be due to a cardiac source. She did have a coronary artery stent. The patient took 4 nitroglycerin tablets yesterday. She has no pain at this time. I discussed the patient's laboratory and radiographic studies with her. I also discussed the limitations of the emergency department work-up for chest pain with her. Ultimately the patient was not comfortable with an outpatient work-up. She has had multiple troponins done in the emergency department that did not show an elevation but her troponin level was detectable. I discussed her case with the on-call [facility] fretted instrument maker hand. I also discussed her case with the on-call [facility] hospitalist. She is to be evaluated by the hospitalist group for possible inpatient management and further work-up for her chest pain. The patient was treated with aspirin in the emergency department. Triage Nursing notes reviewed. Prior medical records reviewed Vital Signs: reviewed and remarkable for no significant abnormalities Differential diagnosis: Cardiac ischemia, aortic dissection, pulmonary embolism, pneumothorax, pneumonia, pericarditis, myocarditis, esophageal rupture, GERD, cholecystitis, pancreatitis, musculoskeletal, as well as other pathologies. ER treatment provided: See below Diagnostics interpreted by me: ECG: EKG was obtained in the emergency department. My interpretation is normal sinus rhythm at 81 bpm. There is no ectopy. Nonspecific ST segment abnormalities were noted in the high lateral leads. This was compared to a tracing from August 102019. No significant changes were noted. Cardiac Monitoring: An order was placed for continuous cardiac monitoring. The monitor shows a rate of 79 bpm with sinus rhythm. Laboratory studies: As stated above and show below. Imaging studies: See below Consultation(s): 163: I discussed this case with Dr. Rodriguez who is on-call for the [facility] cardiology group. 182: I discussed this case with Dr. Ortiz who is on-call for the [facility] hospitalist group. Past Med/Surg History Medical History Abnormal thyroid function test Arteriosclerotic coronary artery disease Carotid artery plaque Chronic kidney disease, stage II (mild) Diabetes mellitus, type 2 Diabetic peripheral neuropathy Dyslipidemia Genital herpes simplex GERD (gastroesophageal reflux disease) Gout Hepatic steatosis Hypertension Lumbar radiculopathy NSTEMI (non-ST elevation myocardial infarction) Restless leg syndrome Rosacea Sleep apnea oral appliance Stage I breast cancer (04/23/14) "Abnormal left breast mammogram 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 Status post lumpectomy and sentinel lymph node biopsy 04/23/2014 revealing invasive ductal carcinoma Stage [id number] estrogen receptor positive, progesterone receptor positive, HER-2/jethro negative Status post completion of radiation therapy 08/13/2014 received 6300 cGy Participation inREATA Study 40C 1306" Trigger finger, acquired Valvular disease MILD MR PER 2013 DSE Surgical History H/O breast biopsy History of arthroscopy RT KNEE History of cardiac cath Cardiac S tent 2019 History of cataract surgery History of colonoscopy History of dilation and curettage History of hip replacement History of hysterectomy History of tonsillectomy History of tooth extraction History of total knee replacement LEFT KNEE X 2 Hx of lumpectomy LEFT BREAST LUMPECTOMY WITH AXILLARY LND (04/23/14= LMA #4 AT [facility]) Status post cardiac catheterization (2005) Status post tonsillectomy Status post total knee replacement Family History Family/Other Family history of diabetes mellitus Sister Chronic liver disease Mother Cancer Bone cancer Breast cancer Family/Other Cardiac disorder Diabetes Father Stroke Grandmother (Maternal) Lung cancer Other Family history of heart attack Denies family history of Ovarian cancer Prostate cancer Colorectal cancer Social History Smoking Status: Never smoker Second Hand Exposure: No; Hx Alcohol Use: Yes Alcohol type: wine Alcohol Intake Frequency: 4 or More x per/Week Hx Substance Use: No Preferred Language: Kyrgyz Communication Ability: Effective Visual Impairment: No Limitations Hearing Ability: Hard of Hearing Resource Coordinator Required: No Beliefs That Will Affect Care: Adventist Adventist Beliefs: CAODAISM marital status: Single Current Living Situation: Alone current occupational status: retired current occupation: retired Feels Safe at Home: Yes caffeine: Yes Dental Care, Regularly: Yes Physical Activity Frequency: Does not Exercise Seatbelt Use: always Sunscreen Use: No Assistive Devices: Cane Allergies Allergies Allergy/AdvReac Type Severity Reaction Status Date / Time latex Allergy Intermediate SKIN Verified 02/17/21 16:48 IRRITATION gluten AdvReac Unknown "sleepiness Verified 02/17/21 16:48 " Home Meds Home Medications Medication Instructions Recorded Confirmed acetaminophen 500 mg tablet 500 mg PO Q6H PRN 04/05/18 02/17/21 (Tylenol Extra Strength) aspirin 81 mg tablet,delayed 81 mg PO QAM 12/29/18 02/17/21 release (Adult Low Dose Aspirin) amoxicillin 500 mg capsule 2,000 mg PO UD PRN #0 cap 03/25/19 02/17/21 diclofenac sodium 1 % topical gel 4 g TOP QID PRN gm 10/07/20 02/17/21 lancets 33 gauge (BD Ultra Fine #100 ea 10/21/20 01/10/21 Lancets) bupropion HCl 100 mg tablet,12 hr 100 mg PO QAM ea 01/10/21 02/17/21 sustained-release acyclovir 200 mg capsule 400 mg PO BID 02/17/21 02/17/21 atorvastatin 40 mg tablet 40 mg PO PM 02/17/21 02/17/21 canagliflozin 300 mg tablet 300 mg PO QAM 02/17/21 02/17/21 (Invokana) cinnamon bark 500 mg capsule 500 mg PO ONCE 02/17/21 02/17/21 (Cinnamon) glimepiride 4 mg tablet 4 mg PO QAM 02/17/21 02/17/21 lisinopril 10 mg tablet 10 mg PO HS 02/17/21 02/17/21 melatonin 10 mg tablet 10 mg PO HS PRN 02/17/21 02/17/21 metoprolol succinate 100 mg 100 mg PO HS 02/17/21 02/17/21 tablet,extended release 24 hr (Toprol XL) multivitamin-ferrous 1 tab PO QAM 02/17/21 02/17/21 fumarate-folic acid 18 mg-400 mcg tablet (Centrum) Previous Rx's Medication Instructions Recorded nitroglycerin 0.4 mg sublingual 0.4 mg SL Q5M PRN #30 tab 05/03/20 tablet nystatin-triamcinolone 100,000 1 applic TOP TID #30 g 05/07/20 unit/gram-0.1 % topical ointment blood sugar diagnostic (Contour #100 ea 05/16/20 Next Test Strips) gabapentin 600 mg tablet 600 mg PO TID 30 Days #90 tab 07/23/20 pramipexole 0.5 mg tablet 0.5 mg PO QPM #30 tab 07/23/20 pantoprazole 40 mg tablet,delayed 40 mg PO QAM #90 tab 11/05/20 release (Protonix) flash glucose sensor (FreeStyle #1 ea 11/12/20 Mercedez 2 Sensor) sitagliptin 50 mg-metformin 1,000 1 tab PO BID #180 tab 11/12/20 mg tablet (Janumet) Results & Data (ED) Vital Signs Vital Signs - 24 hr 02/17/21 14:28 02/17/21 17:00 02/17/21 18:02 Temperature 36.9 C Temperature Source Temporal Artery Scan Pulse Rate 86 85 Pulse Rate from SpO2 Sensor 85 Respiratory Rate 18 21 Respiratory Effort / Characteristics Non-Labored Respiratory Depth Normal Blood Pressure 158/87 H 135/80 Blood Pressure Mean 110 98 Pulse Oximetry 96 94 Oxygen Delivery Method Room Air Room Air Sepsis Recent Fever Within 48 Hours No Sepsis New/Unexplained Change in Mental Status N/A Sepsis Action Taken by Nursing No Action Required 02/17/21 19:00 Temperature Temperature Source Pulse Rate 79 Pulse Rate from SpO2 Sensor 79 Respiratory Rate 20 Respiratory Effort / Characteristics Respiratory Depth Blood Pressure 120/85 Blood Pressure Mean 96 Pulse Oximetry 97 Oxygen Delivery Method Sepsis Recent Fever Within 48 Hours Sepsis New/Unexplained Change in Mental Status Sepsis Action Taken by Nursing Laboratory Data Result diagrams: 02/17/21 14:41 02/17/21 14:41 Lab Results 02/17/21 02/17/21 02/17/21 Range/Units 14:41 14:41 14:41 WBC 6.91 (4.8-10.8) K/uL RBC 4.97 (4.2-5.4) M/uL Hgb 14.0 (12.0-16.0) g/dL Hct 42.8 (37-47) % MCV 86.1 (80-100) fL MCH 28.2 (25-34) pg MCHC 32.7 (32-36) g/dL RDW Std Deviation 44.4 (36.4-46.3) fL RDW Coeff of Oksana 14.2 (11.5-14.5) % Plt Count 342 (130-400) K/uL MPV 10.0 (7.4-10.4) fL Immature Gran % (Auto) 0.1 % Neut % (Auto) 50.6 % Lymph % (Auto) 36.8 % Rusk % (Auto) 7.1 % Eos % (Auto) 5.1 % Baso % (Auto) 0.3 % Neut # (Auto) 3.50 (1.4-6.5) K/uL Lymph # (Auto) 2.54 (1.2-3.4) K/uL Rusk # (Auto) 0.49 (0.11-0.59) K/uL Eos # (Auto) 0.35 (0-0.5) K/uL Baso # (Auto) 0.02 (0-0.2) K/uL Immature Gran # (Auto) 0.01 (0.00-0.02) K/uL PT 10.1 (9.0-12.0) Seconds INR 1.0 (0.9-1.1) APTT 26.4 (21.0-31.0) Seconds PTT Ratio 1.0 Sodium 135 L (136-145) mmol/L Potassium 4.3 (3.5-5.1) mmol/L Chloride 103 (98-107) mmol/L Carbon Dioxide 26 (21-32) mmol/L Anion Gap 6.0 (3-11) BUN 31 H (7-18) mg/dl Creatinine 0.81 (0.6-1.2) mg/dl Est Cr Clr Drug Dosing 67.1 ml/min Est GFR ( Amer) 83.5 ml/min Est GFR (Non-Af Amer) 72.1 ml/min BUN/Creatinine Ratio 38.1 H (10-20) Glucose 126 H (70-99) mg/dl Calcium 10.0 (8.5-10.1) mg/dl Total Bilirubin 0.5 (0.2-1) mg/dl AST 27 (15-37) U/L ALT 42 (12-78) U/L Alkaline Phosphatase 70 (45-117) U/L Troponin I 0.025 (0-0.045) ng/ml Total Protein 8.0 (6.4-8.2) gm/dl Albumin 4.0 (3.4-5.0) gm/dl Globulin 4.0 (2.5-4.0) gm/dl Albumin/Globulin Ratio 1.0 (0.9-2) COVID-19 Eval Order SARS-CoV-2 (PCR) (Negative) 02/17/21 02/17/21 02/17/21 Range/Units 16:53 18:05 18:05 WBC (4.8-10.8) K/uL RBC (4.2-5.4) M/uL Hgb (12.0-16.0) g/dL Hct (37-47) % MCV (80-100) fL MCH (25-34) pg MCHC (32-36) g/dL RDW Std Deviation (36.4-46.3) fL RDW Coeff of Oksana (11.5-14.5) % Plt Count (130-400) K/uL MPV (7.4-10.4) fL Immature Gran % (Auto) % Neut % (Auto) % Lymph % (Auto) % Rusk % (Auto) % Eos % (Auto) % Baso % (Auto) % Neut # (Auto) (1.4-6.5) K/uL Lymph # (Auto) (1.2-3.4) K/uL Rusk # (Auto) (0.11-0.59) K/uL Eos # (Auto) (0-0.5) K/uL Baso # (Auto) (0-0.2) K/uL Immature Gran # (Auto) (0.00-0.02) K/uL PT (9.0-12.0) Seconds INR (0.9-1.1) APTT (21.0-31.0) Seconds PTT Ratio Sodium (136-145) mmol/L Potassium (3.5-5.1) mmol/L Chloride (98-107) mmol/L Carbon Dioxide (21-32) mmol/L Anion Gap (3-11) BUN (7-18) mg/dl Creatinine (0.6-1.2) mg/dl Est Cr Clr Drug Dosing ml/min Est GFR ( Amer) ml/min Est GFR (Non-Af Amer) ml/min BUN/Creatinine Ratio (10-20) Glucose (70-99) mg/dl Calcium (8.5-10.1) mg/dl Total Bilirubin (0.2-1) mg/dl AST (15-37) U/L ALT (12-78) U/L Alkaline Phosphatase (45-117) U/L Troponin I 0.022 (0-0.045) ng/ml Total Protein (6.4-8.2) gm/dl Albumin (3.4-5.0) gm/dl Globulin (2.5-4.0) gm/dl Albumin/Globulin Ratio (0.9-2) COVID-19 Eval Order Covid19 at [facility] SARS-CoV-2 (PCR) NEGATIVE (Negative) Administered Medications Discontinued Medications Al Hydrox/Mg Hydrox/Simethicone (Aluminum/Magnesium Susp 30 Ml Udc) 30 ml PO NOW STA Stop: 02/17/21 16:28 Last Admin: 02/17/21 16:45 Dose: 30 ml Documented by: [id number] Aspirin (Aspirin Chew 324 Mg) 324 mg PO NOW STA Stop: 02/17/21 16:28 Last Admin: 02/17/21 16:45 Dose: 324 mg Documented by: [id number] Imaging Data Radiologist's Impression: Chest X-Ray 02/17/21 14:24 XR chest 1V portable CLINICAL HISTORY: Chest Pain COMPARISON STUDY: Chest CT April 05, 2019. Chest radiograph 08/10/2019. FINDINGS: Lung volumes are normal. Evidence for a previous granulomas process is again noted with a calcified granuloma within the left upper lobe and calcified mediastinal/left hilar lymph nodes. There is no pneumothorax or pleural effusion. Cardiac size is normal. Mediastinal contours are normal. There is no evidence for pulmonary edema. IMPRESSION: No acute cardiopulmonary findings. No change in appearance of the chest. ACT 112: Negative or not required by law. Electronically signed by: oJse Manzo M.D. 02/17/2021 4:52 PM Discharge Plan Visit Data Chief Complaint: Chest Pain Stated Complaint: CHEST TIGHTNESS- TOOK 4 NITRO ED Provider: Edgar Call Discharge Problem: Chest pain Patient Disposition: Being Evaluated by Hospitalist Condition: Good Forms Stand Alone Forms: My [employer] Prescriptions Prescriptions: No Action amoxicillin 500 mg capsule 2,000 mg PO UD PRN (Reason: BEFORE DENTAL PROCEDURE) Qty: 0 RF: 0 nitroglycerin 0.4 mg tablet, sublingual 0.4 mg SL Q5M PRN (Reason: chest pain) Qty: 30 RF: 0 nystatin-triamcinolone 100,000-0.1 unit/gram-% ointment 1 applic TOP TID Qty: 30 RF: 1 (DME) Contour Next Test Strips Strip See Rx Instructions .ROUTE .MEDSUPPLY Qty: 100 RF: 3 Janumet 50-1,000 mg tablet 1 tab PO BID Qty: 180 RF: 3 (DME) FreeStyle Mercedez 2 Sensor Kit See Rx Instructions .ROUTE .MEDSUPPLY Qty: 1 RF: 5 diclofenac sodium 1 % gel 4 g TOP QID PRN (Reason: joint pain) RF: 0 pantoprazole [Protonix] 40 mg tablet,delayed release (DR/EC) 40 mg PO QAM Qty: 90 RF: 3 bupropion HCl 100 mg tablet sustained-release 12 hr 100 mg PO QAM RF: 0 gabapentin 600 mg tablet 600 mg PO TID 30 Days Qty: 90 RF: 6 pramipexole 0.5 mg tablet 0.5 mg PO QPM Qty: 30 RF: 6 (DME) lancets [BD Ultra Fine Lancets] 33 gauge misc See Rx Instructions .ROUTE .MEDSUPPLY Qty: 100 RF: 0 aspirin [Adult Low Dose Aspirin] 81 mg tablet,delayed release (DR/EC) 81 mg PO QAM RF: 0 acetaminophen [Tylenol Extra Strength] 500 mg Tablet 500 mg PO Q6H PRN (Reason: Pain) RF: 0 cinnamon bark [Cinnamon] 500 mg Capsule 500 mg PO ONCE RF: 0 Centrum 18-400 mg-mcg Tablet 1 tab PO QAM RF: 0 melatonin 10 mg Tablet 10 mg PO HS PRN (Reason: Sleep) RF: 0 atorvastatin 40 mg tablet 40 mg PO PM RF: 0 metoprolol succinate [Toprol XL] 100 mg tablet extended release 24 hr 100 mg PO HS RF: 0 lisinopril 10 mg tablet 10 mg PO HS RF: 0 glimepiride 4 mg tablet 4 mg PO QAM RF: 0 acyclovir 200 mg capsule 400 mg PO BID RF: 0 Invokana 300 mg tablet 300 mg PO QAM RF: 0 Referrals Referrals: Luke Alonzo DO [Primary Care Provider] -
--- NOTE | 2021-02-17 16:54 | XRay Report ---
XR chest 1V portable CLINICAL HISTORY: Chest Pain COMPARISON STUDY: Chest CT April 05, 2019. Chest radiograph 08/10/2019. FINDINGS: Lung volumes are normal. Evidence for a previous granulomas process is again noted with a c alcified granuloma within the left upper lobe and calcified mediastinal/left hilar lymph nodes. There is no pneumothorax or pleural effusion. Cardiac size is normal. Mediastinal contours are normal. The re is no evidence for pulmonary edema. IMPRESSION: No acute cardiopulmonary findings. No change in appearance of the chest. ACT 112: Negative or not required by law. Electronically signed by: Jose Manzo M.D. 02/17/2021 4:52 PM
[2021-02-17 17:36] LABS: Troponin I 0.022 ng/ml (0-0.045)
[2021-02-17] MEDS ORDERED: PRAMIPEXOLE DIHYDROCHLO 0.5 MG TAB PO STA (18:50)
[2021-02-17] MEDS ORDERED: ATORVASTATIN 40 MG TAB PO STA (18:50)
[2021-02-17] MEDS ORDERED: lisinopril 10 MG TAB PO ONE (18:50)
[2021-02-17] MEDS ORDERED: METOPROLOL SUCC 50MG EXT REL TAB PO STA (18:50)
[2021-02-17] MEDS ORDERED: ACYCLOVIR 400 MG TAB PO ONE (18:50)
[2021-02-17] MEDS ORDERED: GABAPENTIN 600 MG TAB PO STA (18:50)
--- NOTE | 2021-02-17 18:55 | History & Physical Report ---
Date of Service February 17, 2021 Assessment & Plan (1) Chest pain: Plan: Concerning as is similar to her prior RI discomfort -Telemetry monitoring -Trend troponin -Continue ASA and Statin -Continue Lisinopril and Metoprolol (2) Type 2 diabetes mellitus, controlled: Plan: Chronic -Hold oral agents -ISS, goal blood sugar 100 - 140 -Continue Gabapentin for neuropathy (3) Hypertension: Plan: Well controlled -Continue Lisinopril -Continue Metoprolol -Continue to monitor (4) Dyslipidemia: Plan: Chronic -Continue Atorvastatin (5) Chronic kidney disease, stage II (mild): Plan: BUN and Cr near baseline -Avoid nephrotoxic agents -Monitor renal function (6) GERD (gastroesophageal reflux disease): Plan: Chronic -Continue Protonix Plan: Continue Acyclovir 400mg po BID for HSV suppression F/E/N - Heplock. Monitor electrolytes, check Mg and PO4, CC/AHA as tolerated Ppx - Lovenox Code - Full Dispo - Observation to medical with telemetry History of Present Illness Chief Complaint: chest pain Primary Care Provider: DO Silas Lyonsyannick Snell is a 71yo female with history of DM, HTN, HLP, CKD and CAD s/p RI in April 2019 with stent placement presenting with chest pain. Patient's symptoms with her RI in the past was mainly sore throat, chest and jaw tightness. She has been experiencing similar symptoms over the last two days. Yesterday she went to rastafarian then went shopping and developed tightness in her throat and chest. She took Nitro x 4 with near complete relief of the di scomfort. She came to the ER today due to concern that her symptoms were similar to her RI symptoms. She has an ongoing "feeling" in her chest. She is fairly active at home and denies exertional symptoms. She denies palpitations. No edema/orthopnea/weight gain. ER Course: Maalox, ASA Allergies Allergy/AdvReac Type Severity Reaction Status Date / Time latex Allergy Intermediate SKIN Verified 02/17/21 16:48 IRRITATION gluten AdvReac Unknown "sleepiness Verified 02/17/21 16:48 " Home Medications Medication Instructions Recorded Confirmed Type acetaminophen 500 mg tablet 500 mg PO Q6H PRN 04/05/18 02/17/21 History (Tylenol Extra Strength) aspirin 81 mg tablet,delayed 81 mg PO QAM 12/29/18 02/17/21 History release (Adult Low Dose Aspirin) amoxicillin 500 mg capsule 2,000 mg PO UD PRN #0 cap 03/25/19 02/17/21 History nitroglycerin 0.4 mg sublingual 0.4 mg SL Q5M PRN #30 tab 05/03/20 02/17/21 Rx tablet nystatin-triamcinolone 100,000 1 applic TOP TID #30 g 05/07/20 02/17/21 Rx unit/gram-0.1 % topical ointment blood sugar diagnostic (Contour #100 ea 05/16/20 01/10/21 Rx Next Test Strips) gabapentin 600 mg tablet 600 mg PO TID 30 Days #90 tab 07/23/20 02/17/21 Rx pramipexole 0.5 mg tablet 0.5 mg PO QPM #30 tab 07/23/20 02/17/21 Rx diclofenac sodium 1 % topical gel 4 g TOP QID PRN gm 10/07/20 02/17/21 History lancets 33 gauge (BD Ultra Fine #100 ea 10/21/20 01/10/21 History Lancets) pantoprazole 40 mg tablet,delayed 40 mg PO QAM #90 tab 11/05/20 02/17/21 Rx release (Protonix) flash glucose sensor (FreeStyle #1 ea 11/12/20 01/10/21 Rx Mercedez 2 Sensor) sitagliptin 50 mg-metformin 1,000 1 tab PO BID #180 tab 11/12/20 02/17/21 Rx mg tablet (Janumet) bupropion HCl 100 mg tablet,12 hr 100 mg PO QAM ea 01/10/21 02/17/21 History sustained-release acyclovir 200 mg capsule 400 mg PO BID 02/17/21 02/17/21 History atorvastatin 40 mg tablet 40 mg PO PM 02/17/21 02/17/21 History canagliflozin 300 mg tablet 300 mg PO QAM 02/17/21 02/17/21 History (Invokana) cinnamon bark 500 mg capsule 500 mg PO ONCE 02/17/21 02/17/21 History (Cinnamon) glimepiride 4 mg tablet 4 mg PO QAM 02/17/21 02/17/21 History lisinopril 10 mg tablet 10 mg PO HS 02/17/21 02/17/21 History melatonin 10 mg tablet 10 mg PO HS PRN 02/17/21 02/17/21 History metoprolol succinate 100 mg 100 mg PO HS 02/17/21 02/17/21 History tablet,extended release 24 hr (Toprol XL) multivitamin-ferrous 1 tab PO QAM 02/17/21 02/17/21 History fumarate-folic acid 18 mg-400 mcg tablet (Centrum) Past Med/Surg History Medical History Abnormal thyroid function test Arteriosclerotic coronary artery disease Carotid artery plaque Chronic kidney disease, stage II (mild) Diabetes mellitus, type 2 Diabetic peripheral neuropathy Dyslipidemia Genital herpes simplex GERD (gastroesophageal reflux disease) Gout Hepatic steatosis Hypertension Lumbar radiculopathy NSTEMI (non-ST elevation myocardial infarction) Restless leg syndrome Rosacea Sleep apnea oral appliance Stage I breast cancer (04/23/14) "Abnormal left breast mammogram 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 Status post lumpectomy and sentinel lymph node biopsy 04/23/2014 revealing invasive ductal carcinoma Stage [id number] estrogen receptor positive, progesterone receptor positive, HER-2/jethro negative Status post completion of radiation therapy 08/13/2014 received 6300 cGy Participation inREATA Study 40C 1306" Trigger finger, acquired Valvular disease MILD MR PER 2014 DSE Surgical History H/O breast biopsy History of arthroscopy RT KNEE History of cardiac cath Cardiac S tent 2019 History of cataract surgery History of colonoscopy History of dilation and curettage History of hip replacement History of hysterectomy History of tonsillectomy History of tooth extraction History of total knee replacement LEFT KNEE X 2 Hx of lumpectomy LEFT BREAST LUMPECTOMY WITH AXILLARY LND (04/23/14= LMA #4 AT [facility]) Status post cardiac catheterization (2005) Status post tonsillectomy Status post total knee replacement Family History Family/Other Family history of diabetes mellitus Sister Chronic liver disease Mother Cancer Bone cancer Breast cancer Family/Other Cardiac disorder Diabetes Father Stroke Grandmother (Maternal) Lung cancer Other Family history of heart attack Denies family history of Ovarian cancer Prostate cancer Colorectal cancer Social History Smoking Status: Never smoker Second Hand Exposure: No; Hx Alcohol Use: Yes Alcohol type: wine Alcohol Intake Frequency: 4 or More x per/Week Hx Substance Use: No Preferred Language: Icelandic Communication Ability: Effective Visual Impairment: No Limitations Hearing Ability: Hard of Hearing Building Carpenter Required: No Beliefs That Will Affect Care: Mosque Mosque Beliefs: WORSHIP marital status: Single Current Living Situation: Alone current occupational status: retired current occupation: retired Feels Safe at Home: Yes caffeine: Yes Dental Care, Regularly: Yes Physical Activity Frequency: Does not Exercise Seatbelt Use: always Sunscreen Use: No Assistive Devices: Cane Review of Systems Review of Systems: General: Patient denies fevers, chills, malaise, weight loss or weight gain Skin: Patient denies bruising, bleeding or rash HEENT: Patient denies headache, visual changes, sore throat, difficulty swallowing, stiff neck Cardio: Patient palpitations, shortness of breath, lightheadedness Pulmonary: Patient denies cough, wheeze GI: Patient denies abdominal pain, nausea, vomiting, diarrhea, constipation : Patient denies dysuria, frequency, urgency or hematuria Musculoskeletal: Patient denies swelling or pain of the joints, edema Neuro: Patient denies numbness, tingling, weakness or falls Psych: Patient denies depression, anxiety Physical Exam Physical Exam: General: patient resting comfortably, NAD, non-toxic in appearance, AA&O x 4 Skin: warm, dry, intact, no rashes or lesions HEENT: NC/AT, PERRL, EOMI, anicteric sclera, conjunctiva without injection, external ear normal to inspection and nontender, nares patent, moist mucus membranes, dentition intact, no oropharyngeal lesions, neck supple, trachea midline, no LAD, no thyromegaly, no JVD Heart: +S1/S2, regular, no m/r/g Lungs: equal air entry bilaterally, no rales/rhonchi/wheezes Abd: +BS, soft, NT/ND, no masses/organomegaly/ascites Ext: warm, 2+ pulses in UE/LE bilaterally, no clubbing/cyanosis or edema Neuro: nonfocal, patient AA&O x 4, speech intact, no facial droop, moving all ex tremities on command with equal strength 5/5 Results & Data Results & Data ([facility]) Vital Signs (Past 12 Hours) Vital Signs Temp Pulse Resp BP Pulse Ox 02/17/21 18:02 85 21 135/80 94 02/17/21 14:28 36.9 C 86 18 158/87 H 96 Laboratory Results Laboratory Results WBC 6.91 K/uL (4.8-10.8) 02/17/21 14:41 RBC 4.97 M/uL (4.2-5.4) 02/17/21 14:41 Hgb 14.0 g/dL (12.0-16.0) 02/17/21 14:41 Hct 42.8 % (37-47) 02/17/21 14:41 MCV 86.1 fL (80-100) 02/17/21 14:41 MCH 28.2 pg (25-34) 02/17/21 14:41 MCHC 32.7 g/dL (32-36) 02/17/21 14:41 RDW Std Deviation 44.4 fL (36.4-46.3) 02/17/21 14:41 RDW Coeff of Oksana 14.2 % (11.5-14.5) 02/17/21 14:41 Plt Count 342 K/uL (130-400) 02/17/21 14:41 MPV 10.0 fL (7.4-10.4) 02/17/21 14:41 Immature Gran % (Auto) 0.1 % 02/17/21 14:41 Neut % (Auto) 50.6 % 02/17/21 14:41 Lymph % (Auto) 36.8 % 02/17/21 14:41 Collin % (Auto) 7.1 % 02/17/21 14:41 Eos % (Auto) 5.1 % 02/17/21 14:41 Baso % (Auto) 0.3 % 02/17/21 14:41 Neut # (Auto) 3.50 K/uL (1.4-6.5) 02/17/21 14:41 Lymph # (Auto) 2.54 K/uL (1.2-3.4) 02/17/21 14:41 Collin # (Auto) 0.49 K/uL (0.11-0.59) 02/17/21 14:41 Eos # (Auto) 0.35 K/uL (0-0.5) 02/17/21 14:41 Baso # (Auto) 0.02 K/uL (0-0.2) 02/17/21 14:41 Immature Gran # (Auto) 0.01 K/uL (0.00-0.02) 02/17/21 14:41 PT 10.1 Seconds (9.0-12.0) 02/17/21 14:41 INR 1.0 (0.9-1.1) 02/17/21 14:41 APTT 26.4 Seconds (21.0-31.0) 02/17/21 14:41 PTT Ratio 1.0 02/17/21 14:41 Sodium 135 mmol/L (136-145) L 02/17/21 14:41 Potassium 4.3 mmol/L (3.5-5.1) 02/17/21 14:41 Chloride 103 mmol/L (98-107) 02/17/21 14:41 Carbon Dioxide 26 mmol/L (21-32) 02/17/21 14:41 Anion Gap 6.0 (3-11) 02/17/21 14:41 BUN 31 mg/dl (7-18) H 02/17/21 14:41 Creatinine 0.81 mg/dl (0.6-1.2) 02/17/21 14:41 Est Cr Clr Drug Dosing 67.1 ml/min 02/17/21 14:41 Est GFR ( Amer) 83.5 ml/min 02/17/21 14:41 Est GFR (Non-Af Amer) 72.1 ml/min 02/17/21 14:41 BUN/Creatinine Ratio 38.1 (10-20) H 02/17/21 14:41 Glucose 126 mg/dl (70-99) H 02/17/21 14:41 Calcium 10.0 mg/dl (8.5-10.1) 02/17/21 14:41 Total Bilirubin 0.5 mg/dl (0.2-1) 02/17/21 14:41 AST 27 U/L (15-37) 02/17/21 14:41 ALT 42 U/L (12-78) 02/17/21 14:41 Alkaline Phosphatase 70 U/L (45-117) 02/17/21 14:41 Troponin I 0.022 ng/ml (0-0.045) 02/17/21 16:53 Total Protein 8.0 gm/dl (6.4-8.2) 02/17/21 14:41 Albumin 4.0 gm/dl (3.4-5.0) 02/17/21 14:41 Globulin 4.0 gm/dl (2.5-4.0) 02/17/21 14:41 Albumin/Globulin Ratio 1.0 (0.9-2) 02/17/21 14:41 COVID-19 Eval Order Covid19 at [facility] 02/17/21 18:05 SARS-CoV-2 (PCR) NEGATIVE (Negative) 02/17/21 18:05 Impressions Chest X-Ray 02/17/21 14:24 XR chest 1V portable CLINICAL HISTORY: Chest Pain COMPARISON STUDY: Chest CT April 05, 2019. Chest radiograph 08/10/2019. FINDINGS: Lung volumes are normal. Evidence for a previous granulomas process is again noted with a calcified granuloma within the left upper lobe and calcified mediastinal/left hilar lymph nodes. There is no pneumothorax or pleural effusion. Cardiac size is normal. Mediastinal contours are normal. There is no evidence for pulmonary edema. IMPRESSION: No acute cardiopulmonary findings. No change in appearance of the chest. ACT 112: Negative or not required by law. Electronically signed by: Jose Manzo M.D. 02/17/2021 4:52 PM ECG Additional Comments: Normal sinus rhythm Normal ECG When compared with ECG of 10-AUG-2019 13:10, No significant change was found Confirmed by Edgar Michaud ([id number]) on 02/17/2021 4:04:18 PM Referred By: Confirmed By:Edgar Michaud PG Care Time/CCT Total # of Minutes Spent Total Time Spent with Patient: Total time spent is greater than 50% in coordination of care (as documented) at patient's floor/unit and/or counseling patient: Coding Level of Care Code INT OBSERVATION CARE 50M LVL 2 Diagnoses Chest pain R07.9 Chest pain type: unspecified Type 2 diabetes mellitus, controlled E11.9 Hypertension I10 Hypertension type: essential hypertension Dyslipidemia E78.5 Chronic kidney disease, stage II (mild) N18.2 GERD (gastroesophageal reflux disease) K21.9 (1) Chest pain Chest pain type: unspecified Qualified Code(s): R07.9 - Chest pain, unspecified (2) Hypertension Hypertension type: essential hypertension Qualified Code(s): I10 - Essential (primary) hypertension
[2021-02-17] MEDS ORDERED: CARBOHYDRATES FOR HYPOGLYCEMIA PO PRN (22:40)
[2021-02-17] MEDS ORDERED: DEXTROSE 50% 50 ML SYRINGE IV PRN (22:40)
[2021-02-17] MEDS ORDERED: GLUCOSE 40% GEL 15 GM TUBE PO PRN (22:40)
[2021-02-17] MEDS ORDERED: GLUCAGON FOR INJ 1 MG VIAL SQ PRN (22:40)
[2021-02-17] MEDS ORDERED: GLUCOSE 10 TABS/TUBE PO PRN (22:40)
[2021-02-17] MEDS ORDERED: MELATONIN 3 MG TAB PO PRN (22:47)
[2021-02-17] MEDS ORDERED: ACETAMINOPHEN 500 MG TAB PO PRN (22:49)
[2021-02-17 23:09] LABS: Magnesium 2.1 mg/dl (1.8-2.4); Phosphorus 4.2 mg/dl (2.5-4.9)
[2021-02-17] MEDS: INSULIN ASPART 100 UNITS/ML 3 ML PEN SC SCH (23:39)
[2021-02-18] MEDS: [UNRECOGNIZED DRUG - REMARK] SCH ×3 (01:44→15:27)
[2021-02-18] MEDS: INSULIN ASPART 100 UNITS/ML 3 ML PEN SC SCH ×2 (08:37→12:28)
[2021-02-18] MEDS: GABAPENTIN 600 MG TAB PO SCH ×2 (08:39→14:40)
[2021-02-18] MEDS ORDERED: PANTOprazole 40 MG TAB PO SCH (09:00)
[2021-02-18] MEDS ORDERED: ENOXAPARIN INJ 40 MG/0.4 ML SYR SQ SCH (09:00)
[2021-02-18] MEDS ORDERED: buPROPion SR 100 MG TABCR PO SCH (09:00)
[2021-02-18] MEDS ORDERED: ASPIRIN 81 MG ECTAB PO SCH (09:00)
[2021-02-18] MEDS ORDERED: ACYCLOVIR 200 MG CAP PO SCH (09:00)
[2021-02-18 09:48] LABS: Basophils # (auto) 0.04 K/uL (0-0.2); Basophils % (auto) 0.7 %; Eosinophils # (auto) 0.29 K/uL (0-0.5); Eosinophils % (auto) 5.2 %; Hematocrit (blood only) 39.1 % (37-47); Hemoglobin 12.7 g/dL (12.0-16.0); Immature Granulocytes # (auto) 0.01 K/uL (0.00-0.02); Immature Granulocytes % (auto) 0.2 %; Lymphocytes # (auto) 1.58 K/uL (1.2-3.4); Lymphocytes % (auto) 28.4 %; Mean Corpuscular Hemoglobin 27.8 pg (25-34); Mean Corpuscular Hgb Conc 32.5 g/dL (32-36); Mean Corpuscular Volume 85.6 fL (80-100); Mean Platelet Volume 9.4 fL (7.4-10.4); Monocytes # (auto) 0.32 K/uL (0.11-0.59); Monocytes % (auto) 5.7 %; Neutrophils # (auto) 3.33 K/uL (1.4-6.5); Neutrophils % (auto) 59.8 %; Platelet Count 292 K/uL (130-400); RDW Coefficient of Variation 14.2 % (11.5-14.5); RDW Standard Deviation 44.5 fL (36.4-46.3); Red Blood Count 4.57 M/uL (4.2-5.4); White Blood Count 5.57 K/uL (4.8-10.8)
[2021-02-18 10:07] LABS: Alanine Aminotransferase 42 U/L (12-78); Albumin Level 3.3 gm/dl (3.4-5.0); Aspartate Aminotransferase 27 U/L (15-37); BUN Creatinine Ratio 26.6 (10-20); Blood Urea Nitrogen 22 mg/dl (7-18); Calcium 8.5 mg/dl (8.5-10.1); Carbon Dioxide 25 mmol/L (21-32); Chloride 105 mmol/L (98-107); Creatinine Clr Calc Pharmacy 66.3 ml/min; Est GFR (African American) 82.3 ml/min; Glucose 236 mg/dl (70-99); Potassium 3.8 mmol/L (3.5-5.1); Sodium 137 mmol/L (136-145)
[2021-02-18 10:10] LABS: Alkaline Phosphatase 61 U/L (45-117); Bilirubin Direct < 0.1 mg/dl (0-0.2); Bilirubin,Total 0.4 mg/dl (0.2-1); Total Protein 7.1 gm/dl (6.4-8.2)
--- NOTE | 2021-02-18 11:23 | Hospitalist Progress Note ---
Date of Service February 18, 2021 Assessment & Plan Admission and Anticipated Discharge Date Admission Date: February 17, 2021 Results & Data Results & Data ([facility]) Vital Signs (Past 12 Hours) Vital Signs Temp Pulse Pulse Resp BP BP Pulse Ox 02/18/21 11:11 36.7 C 83 18 97/57 L 91 02/18/21 07:57 36.7 C 83 18 108/63 94 02/18/21 07:29 77 02/18/21 03:41 36.6 C 75 18 116/61 94 02/18/21 01:00 83 02/17/21 23:38 36.6 C 76 18 125/72 94
--- NOTE | 2021-02-18 18:14 | Discharge Summary ---
Date of Service February 18, 2021 Admission HPI Per Admitting Provider Doris Snell is a 71yo female with history of DM, HTN, HLP, CKD and CAD s/p ND in April 2019 with stent placement presenting with chest pain. Patient's symptoms with her ND in the past was mainly sore throat, chest and jaw tightness. She has been experiencing similar symptoms over the last two days. Yesterday she went to taoist then went shopping and developed tightness in her throat and chest. She took Nitro x 4 with near complete relief of the discomfort. She came to the ER today due to concern that her symptoms were similar to her ND symptoms. She has an ongoing "feeling" in her chest. She is fairly active at home and denies exertional symptoms. She denies palpitations. No edema/orthopnea/weight gain. ER Course: Maalox, ASA Admission Exam Per Admitting Provider General: patient resting comfortably, NAD, non-toxic in appearance, AA&O x 4 Skin: warm, dry, intact, no rashes or lesions HEENT: NC/AT, PERRL, EOMI, anicteric sclera, conjunctiva without injection, external ear normal to inspection and nontender, nares patent, moist mucus membranes, dentition intact, no oropharyngeal lesions, neck supple, trachea midline, no LAD, no thyromegaly, no JVD Heart: +S1/S2, regular, no m/r/g Lungs: equal air entry bilaterally, no rales/rhonchi/wheezes Abd: +BS, soft, NT/ND, no masses/organomegaly/ascites Ext: warm, 2+ pulses in UE/LE bilaterally, no clubbing/cyanosis or edema Neuro: nonfocal, patient AA&O x 4, speech intact, no facial droop, moving all extremities on command with equal strength 5/5 Principal Diagnosis Chest Pain Discharge Exam Constitutional WD/WN, vitals as above well developed, well nourished, cooperative and comfortable Respiratory normal respiratory effort, lungs clear to auscultation no respiratory distress and no cough Auscultation: no rales, no rhonchi and no wheezes Cardiovascular RRR, no murmur, no edema Heart Sounds: normal S1 and normal S2; no gallop, no murmur and no cardiac rub Gastrointestinal (Abdomen) normal bowel sounds, soft, nontender, no hepatosplenomegaly Inspection/Auscultation: abdomen not distended Musculoskeletal Extremities: extremities normal to inspection Psychiatric A+Ox3, euthymic affect Discharge Data Allergies Allergy/AdvReac Type Severity Reaction Status Date / Time latex Allergy Intermediate SKIN Verified 02/17/21 16:48 IRRITATION gluten AdvReac Unknown "sleepiness Verified 02/17/21 16:48 " Consultations 02/17/21 18:32 ED Decision to Admit Stat 02/18/21 07:55 Consult Cardiology Routine Hospital Course (1) Chest pain: 71yo Female presented with chest pain, PMH ND 2018 with stent placement, CAD, DM, HTN, HLD, CKD2 1) Chest Pain Patient experienced chest pain throat soreness on wednesday while walking, believed it felt similar to her ND in 2018, took 4 nitroglycerin tablets, pain resolved. She was still concerned on Wednesday, presented to ED. Patient EKG normal, 2 troponin labs negative, cardiac consultation said no stress testing warranted at this time, felt her etiology was unlikely to be cardiac related. Please follow up with PCP. 2) DM Continue home medication 3) HTN Continue home medication 4) HLD Continue home medication 5) GERD Continue home medication 6) Restless Leg Syndrome Continue home medication (2) Type 2 diabetes mellitus, controlled: (3) Hypertension: (4) GERD (gastroesophageal reflux disease): Total Time Total Time Spent Total Time Spent (In Minutes): Less than 30 Discharge Plan Discharge Items Patient Disposition: Home - Self-Care Reason For Visit: CHEST PAIN Discharge Diagnosis: Chest pain Condition on Discharge: Good Activity: Resume your previous activity Non-emergency contact: Primary Care Provider Call non-emergency contact if: you have any medication questions and your symptoms worsen Follow-up/Referrals: Luke Alonzo, [Primary Care Provider] - Diet: Regular Addtl Attending Provider Instructions: You were admitted to the hospital for chest pain with concerns for cardiac abnormalities. You were evaluated via EKG, labs, and cardiology, and were found negative for cardiac related concerns. Please follow up with your PCP upon discharge for management of your cardiac history. Pending Studies at Discharge: No Stand-Alone Forms: My esolidar, Smoking Cessation Medications and DC Order Prescriptions: Continued amoxicillin 500 mg capsule 2,000 mg PO UD PRN (Reason: BEFORE DENTAL PROCEDURE) Qty: 0 RF: 0 nitroglycerin 0.4 mg tablet, sublingual 0.4 mg SL Q5M PRN (Reason: chest pain) Qty: 30 RF: 0 nystatin-triamcinolone 100,000-0.1 unit/gram-% ointment 1 applic TOP TID Qty: 30 RF: 1 (DME) Contour Next Test Strips Strip See Rx Instructions .ROUTE .MEDSUPPLY Qty: 100 RF: 3 Janumet 50-1,000 mg tablet 1 tab PO BID Qty: 180 RF: 3 (DME) FreeStyle Mercedez 2 Sensor Kit See Rx Instructions .ROUTE .MEDSUPPLY Qty: 1 RF: 5 diclofenac sodium 1 % gel 4 g TOP QID PRN (Reason: joint pain) RF: 0 pantoprazole [Protonix] 40 mg tablet,delayed release (DR/EC) 40 mg PO QAM Qty: 90 RF: 3 bupropion HCl 100 mg tablet sustained-release 12 hr 100 mg PO QAM RF: 0 gabapentin 600 mg tablet 600 mg PO TID 30 Days Qty: 90 RF: 6 pramipexole 0.5 mg tablet 0.5 mg PO QPM Qty: 30 RF: 6 (DME) lancets [BD Ultra Fine Lancets] 33 gauge misc See Rx Instructions .ROUTE .MEDSUPPLY Qty: 100 RF: 0 aspirin [Adult Low Dose Aspirin] 81 mg tablet,delayed release (DR/EC) 81 mg PO QAM RF: 0 acetaminophen [Tylenol Extra Strength] 500 mg Tablet 500 mg PO Q6H PRN (Reason: Pain) RF: 0 cinnamon bark [Cinnamon] 500 mg Capsule 500 mg PO ONCE RF: 0 Centrum 18-400 mg-mcg Tablet 1 tab PO QAM RF: 0 melatonin 10 mg Tablet 10 mg PO HS PRN (Reason: Sleep) RF: 0 atorvastatin 40 mg tablet 40 mg PO PM RF: 0 metoprolol succinate [Toprol XL] 100 mg tablet extended release 24 hr 100 mg PO HS RF: 0 lisinopril 10 mg tablet 10 mg PO HS RF: 0 glimepiride 4 mg tablet 4 mg PO QAM RF: 0 acyclovir 200 mg capsule 400 mg PO BID RF: 0 Invokana 300 mg tablet 300 mg PO QAM RF: 0 Discharge Orders: Discharge Order (Routine); Ordered 02/18/21 Ordered By: Kala Cotton Admission Data Admit Date/Time: 02/17/21 18:49 Attending Provider: Jaden Bashir Admit Provider: Wandy Ortiz Primary Care Provider: Luke Alonzo Other Providers: Wandy Ortiz ; Laz Patel Other Interventions: Discharge Summary Assessment (RN) Last Done: 02/18/21 16:57 Supervising Physician Co-Signing Physician Notes I personally examined the patient and verified all hinojosa points of history and exam, discussed case, and agree with decision making with Dr Cotton. Feeling better. Chest pain gone. Cardiology saw patient and noted no further work-up or intervention warranted. Staffing Administrator knows the patient well. Vitals noted, in general she is awake and alert pleasant no distress. HEENT normocephalic atraumatic mucous membranes moist. Breathing unlabored no accessory muscle use good effort. Skin shows no rashes no pallor or icterus. Chest paindid not have ND. Stable for home with no further work-up or intervention per cardiology. As above otherwise.
--- NOTE | 2021-02-18 19:29 | Billing Data ---
Date of Service February 18, 2021 Coding Level of Care Code 98971 OBS Care - Discharge
[2021-02-18] MEDS ORDERED: PRAMIPEXOLE DIHYDROCHLO 0.5 MG TAB PO SCH (21:00)
[2021-02-18] MEDS ORDERED: ATORVASTATIN 40 MG TAB PO SCH (21:00)
[2021-02-18] MEDS ORDERED: METOPROLOL SUCC 50MG EXT REL TAB PO SCH (21:00)
[2021-02-18] MEDS ORDERED: lisinopril 10 MG TAB PO SCH (21:00)
--- NOTE | 2021-03-04 09:00 | Cardiology Consultation ---
Date of Consultation March 04, 2021 History of Present Illness Attending Physician: Jaden Bashir DO History of Present Illness This patient was not seen in consultation on February 18, 2021, she was sent home without being seen. Allergies Allergy/AdvReac Type Severity Reaction Status Date / Time latex Allergy Intermediate SKIN Verified 02/17/21 16:48 IRRITATION gluten AdvReac Unknown "sleepiness Verified 02/17/21 16:48 " Home Medications Medication Instructions Recorded Confirmed Type acetaminophen 500 mg tablet 500 mg PO Q6H PRN 04/05/18 02/17/21 History (Tylenol Extra Strength) aspirin 81 mg tablet,delayed 81 mg PO QAM 12/29/18 02/17/21 History release (Adult Low Dose Aspirin) amoxicillin 500 mg capsule 2,000 mg PO UD PRN #0 cap 03/25/19 02/17/21 History nitroglycerin 0.4 mg sublingual 0.4 mg SL Q5M PRN #30 tab 05/03/20 02/17/21 Rx tablet nystatin-triamcinolone 100,000 1 applic TOP TID #30 g 05/07/20 02/17/21 Rx unit/gram-0.1 % topical ointment blood sugar diagnostic (Contour #100 ea 05/16/20 01/10/21 Rx Next Test Strips) gabapentin 600 mg tablet 600 mg PO TID 30 Days #90 tab 07/23/20 02/17/21 Rx pramipexole 0.5 mg tablet 0.5 mg PO QPM #30 tab 07/23/20 02/17/21 Rx diclofenac sodium 1 % topical gel 4 g TOP QID PRN gm 10/07/20 02/17/21 History lancets 33 gauge (BD Ultra Fine #100 ea 10/21/20 01/10/21 History Lancets) pantoprazole 40 mg tablet,delayed 40 mg PO QAM #90 tab 11/05/20 02/17/21 Rx release (Protonix) flash glucose sensor (FreeStyle #1 ea 11/12/20 01/10/21 Rx Mercedez 2 Sensor) sitagliptin 50 mg-metformin 1,000 1 tab PO BID #180 tab 11/12/20 02/17/21 Rx mg tablet (Janumet) bupropion HCl 100 mg tablet,12 hr 100 mg PO QAM ea 01/10/21 02/17/21 History sustained-release acyclovir 200 mg capsule 400 mg PO BID 02/17/21 02/17/21 History canagliflozin 300 mg tablet 300 mg PO QAM 02/17/21 02/17/21 History (Invokana) cinnamon bark 500 mg capsule 500 mg PO ONCE 02/17/21 02/17/21 History (Cinnamon) glimepiride 4 mg tablet 4 mg PO QAM 02/17/21 02/17/21 History lisinopril 10 mg tablet 10 mg PO HS 02/17/21 02/17/21 History melatonin 10 mg tablet 10 mg PO HS PRN 02/17/21 02/17/21 History metoprolol succinate 100 mg 100 mg PO HS 02/17/21 02/17/21 History tablet,extended release 24 hr (Toprol XL) multivitamin-ferrous 1 tab PO QAM 02/17/21 02/17/21 History fumarate-folic acid 18 mg-400 mcg tablet (Centrum) atorvastatin 40 mg tablet 40 mg PO DAILY #90 tab 02/27/21 Rx Patient History Medical History Abnormal thyroid function test Arteriosclerotic coronary artery disease Carotid artery plaque Chronic kidney disease, stage II (mild) Diabetes mellitus, type 2 Diabetic peripheral neuropathy Dyslipidemia Genital herpes simplex GERD (gastroesophageal reflux disease) Gout Hepatic steatosis Hypertension Lumbar radiculopathy NSTEMI (non-ST elevation myocardial infarction) Restless leg syndrome Rosacea Sleep apnea oral appliance Stage I breast cancer (04/23/14) "Abnormal left breast mammogram 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 Status post lumpectomy and sentinel lymph node biopsy 04/23/2014 revealing invasive ductal carcinoma Stage [id number] estrogen receptor positive, progesterone receptor positive, HER-2/jethro negative Status post completion of radiation therapy 08/13/2014 received 6300 cGy Participation inREATA Study 40C 1306" Trigger finger, acquired Valvular disease MILD MR PER 2014 DSE Surgical History H/O breast biopsy History of arthroscopy RT KNEE History of cardiac cath Cardiac S tent 2019 History of cataract surgery History of colonoscopy History of dilation and curettage History of hip replacement History of hysterectomy History of tonsillectomy History of tooth extraction History of total knee replacement LEFT KNEE X 2 Hx of lumpectomy LEFT BREAST LUMPECTOMY WITH AXILLARY LND (04/23/14= LMA #4 AT [facility]) Status post cardiac catheterization (2005) Status post tonsillectomy Status post total knee replacement Family History Family/Other Family history of diabetes mellitus Sister Chronic liver disease Mother Cancer Bone cancer Breast cancer Family/Other Cardiac disorder Diabetes Father Stroke Grandmother (Maternal) Lung cancer Other Family history of heart attack Denies family history of Ovarian cancer Prostate cancer Colorectal cancer Social History Smoking Status: Never smoker Second Hand Exposure: No; Hx Alcohol Use: Yes Alcohol type: wine Alcohol Intake Frequency: 4 or More x per/Week Hx Substance Use: No Preferred Language: Nepali Communication Ability: Effective Visual Impairment: No Limitations Hearing Ability: Hard of Hearing Microbiology Instructor Required: No Beliefs That Will Affect Care: None marital status: Single Current Living Situation: Alone current occupational status: retired current occupation: retired Feels Safe at Home: Yes caffeine: Yes Dental Care, Regularly: Yes Physical Activity Frequency: Does not Exercise Seatbelt Use: always Sunscreen Use: No Assistive Devices: Glasses PG Care Time/CCT Total # of Minutes Spent Total Time Spent with Patient: Total time spent is greater than 50% in coordination of care (as documented) at patient's floor/unit and/or counseling patient: Coding Level of Care Code None
== END 2021-02-18 17:42 | disposition home or self-care (01) ==
LOC: 2N 14:22 → ED 14:22 → SUATTDRO 18:49 → 2N 21:46

== ENCOUNTER 2024-12-01 09:05 | Observation (INO) ==
--- NOTE | 2024-11-10 11:27 | PAT Medication Instructions ---
Medication Instructions Date of Service November 10, 2024 Home Medications Medication Instructions Recorded amoxicillin 500 mg capsule 2,000 mg (4 x 500 mg) PO UD PRN 05/21/23 BEFORE DENTAL PROCEDURE #4 caps gabapentin 600 mg tablet 600 mg PO TID #270 tabs 03/08/24 nitroglycerin 0.4 mg sublingual 0.4 mg sublingual Q5M PRN chest 05/17/24 tablet pain #30 tabs metoprolol succinate 100 mg 100 mg PO HS #90 tabs 06/13/24 tablet,extended release 24 hr (Toprol XL) FreeStyle [place] 2 [place] (flash #1 ea 07/31/24 glucose scanning reader) flash glucose sensor (FreeStyle #2 ea 07/31/24 [place]ez 2 Sensor kit) nystatin-triamcinolone 100,000 1 applic topical TID PRN Skin 09/05/24 unit/gram-0.1 % topical ointment Irritation #15 grams tirzepatide 10 mg/0.5 mL 10 mg (0.5 mL) subcut .weekly #2 mL 10/04/24 subcutaneous pen injector acetaminophen 500 mg tablet (Tylenol Extra Strength) 500 mg PO Q6H PRN Pain diclofenac sodium 1 % topical gel 4 g topical QID PRN joint pain multivitamin-ferrous fumarate-folic acid 18 mg-400 mcg tablet (Centrum) 1 tab PO QAM amoxicillin 500 mg capsule 2,000 mg (4 x 500 mg) PO UD PRN BEFORE DENTAL PROCEDURE ibuprofen 200 mg tablet 200 mg PO Q6H PRN Pain gabapentin 600 mg tablet 600 mg PO TID cholecalciferol (vitamin D3) 100 mcg (4,000 unit) capsule 2,000 unit PO DAILY vitamin B12 0.5 mg-folic acid 1 mg tablet 1 tab PO DAILY nitroglycerin 0.4 mg sublingual tablet 0.4 mg sublingual Q5M PRN chest pain metoprolol succinate 100 mg tablet,extended release 24 hr (Toprol XL) 100 mg PO HS nystatin-triamcinolone 100,000 unit/gram-0.1 % topical ointment 1 applic topical TID PRN Skin Irritation tirzepatide 10 mg/0.5 mL subcutaneous pen injector 10 mg (0.5 mL) subcut .weekly acyclovir 200 mg capsule 200 mg PO BID aspirin 81 mg tablet,delayed release 81 mg PO QAM escitalopram oxalate 5 mg tablet 5 mg PO HS melatonin 5 mg tablet 5 mg PO HS PRN Sleep metformin 1,000 mg tablet 1,000 mg PO BID rosuvastatin 20 mg tablet 20 mg PO HS Continue as directed amoxicillin 500 mg capsule 2,000 mg (4 x 500 mg) PO UD PRN BEFORE DENTAL PROCEDURE nitroglycerin 0.4 mg sublingual tablet 0.4 mg sublingual Q5M PRN chest pain (if needed) STOP 7 days prior to surgery tirzepatide 10 mg/0.5 mL subcutaneous pen injector 10 mg (0.5 mL) subcut .weekly ASK your surgeon for instructions ibuprofen 200 mg tablet 200 mg PO Q6H PRN Pain ASK your prescriber and surgeon aspirin 81 mg tablet,delayed release 81 mg PO QAM STOP taking 24 hours before surgery diclofenac sodium 1 % topical gel 4 g topical QID PRN joint pain nystatin-triamcinolone 100,000 unit/gram-0.1 % topical ointment 1 applic topical TID PRN Skin Irritation DO NOT take the morning of surgery multivitamin-ferrous fumarate-folic acid 18 mg-400 mcg tablet (Centrum) 1 tab PO QAM cholecalciferol (vitamin D3) 100 mcg (4,000 unit) capsule 2,000 unit PO DAILY vitamin B12 0.5 mg-folic acid 1 mg tablet 1 tab PO DAILY metformin 1,000 mg tablet 1,000 mg PO BID Take morning of surgery With a small sip of water, OTHERWISE NOTHING TO EAT OR DRINK AFTER MIDNIGHT: acetaminophen 500 mg tablet (Tylenol Extra Strength) 500 mg PO Q6H PRN Pain (if needed) gabapentin 600 mg tablet 600 mg PO TID acyclovir 200 mg capsule 200 mg PO BID Take evening before surgery acetaminophen 500 mg tablet (Tylenol Extra Strength) 500 mg PO Q6H PRN Pain (if needed) gabapentin 600 mg tablet 600 mg PO TID metoprolol succinate 100 mg tablet,extended release 24 hr (Toprol XL) 100 mg PO HS acyclovir 200 mg capsule 200 mg PO BID escitalopram oxalate 5 mg tablet 5 mg PO HS melatonin 5 mg tablet 5 mg PO HS PRN Sleep (if needed) metformin 1,000 mg tablet 1,000 mg PO BID rosuvastatin 20 mg tablet 20 mg PO HS Other Notes If you have any questions please call us at [phone] or [phone] or [phone] or [phone]
--- NOTE | 2024-11-14 11:25 | Anesthesiology Consultation ---
Date of Service November 14, 2024 Assessment & Plan (1) Encounter for pre-operative examination: Chart Review Chart Review: Acceptable Risk for Surgery (pending PCP clearance (11/15/24) and cardio clearance 11/30/24) and Patient seen in Pre Admission Testing - Workload note sent to [place] cardio regarding sinus tachycardia during PAT exam and on EKG- recommend preop appt- patient scheduled for 11/30/24 - awaiting cardio clearance 11/30/24 - Workload note sent to [place] PCP regarding balance issues- preop appt scheduled for 11/15/24 - awaiting PCP clearance 11/15/24 - Check BSG AM DOS Patient is NOT an OPJ candidate (currently 23 hour obs) - Last dose of Mounjaro scheduled 11/20/24- will be off Mounjaro x 11 days by DOS on 12/01/24 Per PAT appt on 11/14/24, no recent illness/disease exposures, illness related symptoms, or recent illness/disease positive tests. Will leave to surgeon's discretion if preop Covid testing needed Seen by PCP 09/19/24= seen for follow up exam. Dizziness/loss of balance. Not improved with decrease of amlodipine and BP still low normal. Will discontinue amlodipine completely patient to reach out 1 week if symptoms are not improving. Can discuss further evaluation at that time such as MRI to rule out TIA versus lesion. Brain imaging may also be helpful to explain memory changes. Carotid u ltrasound October 2023 but could repeat. Will obtain nursing secretary notes to narrow differentials. Neuro exam reassuring today. Short-term memory certainly diminished. Insomnia. Unclear potential contributing issue to above/too soon to see if helps with underlying OA changes. Diabetes. Follow-up 1 month Seen by cardio 09/04/24= Patient seen for follow-up. CADstatus post PCI to mid RCA, residual severe small diagonal disease. Type 2 diabetes. Dyslipidemia. Hypertension. Preserved LV function with mild inferior hypokinesis in 2019 echo. Suspected chronic venous insufficiency. Stable from cardiac standpoint. Activity limited by balance, vision and orthopedic issues. With current exertion no recurrent anginal symptoms. BP at goal. Continue current medicati ons. "She is considering orthopedic surgery to left hip sometime in the spring. From a cardiac standpoint she can proceed with noncardiac surgery without additional cardiac testing. Continue beta-joe, statin and perioperative setting. DVT prophylaxis per orthopedics." Teaching & Discussion Pre-Anesthesia Teaching/Discussion Notes: Instructed NPO after midnight before surgery,except medications with 15 cc of water. Medication instructions provided according to the PAT guidelines. History Surgery Operation Date: 12/01/24 08:00 Proposed Procedures p Left Anterior Total Hip Arthroplasty - Luke Ross, DO Height/Weight Height: 5 ft 7 in Weight: 65.9 kg Allergies Allergy/AdvReac Type Severity Reaction Status Date / Time latex Allergy Severe severe Verified 11/08/24 08:24 skin irritation gluten AdvReac Intermediate "sleepiness Verified 11/08/24 08:24 " mirtazapine AdvReac Mild weight gain Verified 11/08/24 09:12 Medications Home Medications Medication Instructions Recorded Confirmed Last Taken acetaminophen 500 mg tablet 500 mg PO Q6H PRN Pain 04/05/18 11/08/24 02/16/21 (Tylenol Extra Strength) diclofenac sodium 1 % topical gel 4 g topical QID PRN joint pain 10/07/20 11/08/24 02/15/21 lancets 33 gauge (BD Ultra Fine #100 ea 10/21/20 09/19/24 Unknown Lancets) multivitamin-ferrous 1 tab PO QAM 02/17/21 11/08/24 01/02/22 fumarate-folic acid 18 mg-400 mcg tablet (Centrum) blood sugar diagnostic (Contour 12/31/21 09/19/24 Unknown Next Test Strips) amoxicillin 500 mg capsule 2,000 mg (4 x 500 mg) PO UD PRN 05/21/23 11/08/24 Unknown BEFORE DENTAL PROCEDURE #4 caps ibuprofen 200 mg tablet 200 mg PO Q6H PRN Pain 05/21/23 11/08/24 Unknown gabapentin 600 mg tablet 600 mg PO TID #270 tabs 03/08/24 11/08/24 Unknown cholecalciferol (vitamin D3) 100 2,000 unit PO DAILY 03/30/24 11/08/24 Unknown mcg (4,000 unit) capsule vitamin B12 0.5 mg-folic acid 1 mg 1 tab PO DAILY 03/30/24 11/08/24 Unknown tablet nitroglycerin 0.4 mg sublingual 0.4 mg sublingual Q5M PRN chest 05/17/24 11/08/24 Unknown tablet pain #30 tabs metoprolol succinate 100 mg 100 mg PO HS #90 tabs 06/13/24 11/08/24 Unknown tablet,extended release 24 hr (Toprol XL) FreeStyle Mercedez 2 [place] (flash #1 ea 07/31/24 09/19/24 Unknown glucose scanning reader) flash glucose sensor (FreeStyle #2 ea 07/31/24 09/19/24 Unknown Mercedez 2 Sensor kit) nystatin-triamcinolone 100,000 1 applic topical TID PRN Skin 09/05/24 11/08/24 Unknown unit/gram-0.1 % topical ointment Irritation #15 grams tirzepatide 10 mg/0.5 mL 10 mg (0.5 mL) subcut .weekly #2 mL 10/04/24 11/08/24 11/06/24 subcutaneous pen injector acyclovir 200 mg capsule 200 mg PO BID 11/08/24 11/08/24 Unknown aspirin 81 mg tablet,delayed 81 mg PO QAM 11/08/24 11/08/24 Unknown release escitalopram oxalate 5 mg tablet 5 mg PO HS 11/08/24 11/08/24 Unknown melatonin 5 mg tablet 5 mg PO HS PRN Sleep 11/08/24 11/08/24 Unknown metformin 1,000 mg tablet 1,000 mg PO BID 11/08/24 11/08/24 Unknown rosuvastatin 20 mg tablet 20 mg PO HS 11/08/24 11/08/24 Unknown Past Medical History Medical History CAD (coronary artery disease) 2018- s/p stent to mRCA, residual severe small diagonal disease Carotid artery plaque <50% stenosis to right and left ICA per 10/2023 carotid duplex Coccyx pain Mild/improving from fall in 09/2024- no fracture per patient Depression Diabetic retinopathy DM type 2 (diabetes mellitus, type 2) Dyslipidemia Genital herpes simplex no current outbreak, takes Valtrex for maintenance Gout no recent flares Hx of non-ST elevation myocardial infarction (NSTEMI) (2019) HX: breast cancer "Abnormal left breast mammogram 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 Status post lumpectomy and sentinel lymph node biopsy 04/23/2014 revealing s/p XRT ; no chemo Hypertension Insomnia Lumbar radiculopathy Memory impairment "forgetful" Mild per neuro visit 09/2024- discussed addressing sleep issues and to exercise after VINICIO (follow up PRN) Mixed stress and urge incontinence Osteoarthritis Peripheral neuropathy Restless leg syndrome Rosacea Sleep apnea no cpap Trigger finger, acquired Unsteady gait - Ongoing for several years- had EMGs- neuropathy to legs vs nerve damage from previous knee surgery - Continues with balance issues after stopping Amlopidpine Exercise / Class Metabolic Activity III < 4 Walking/Shop/Light housework (one flight of stairs - no chest pain or SOB- goes slow ) Past Family History Family History Family/Other Family history of diabetes mellitus Sister Chronic liver disease Mother Bone cancer Breast cancer Cancer Family/Other Diabetes Cardiac disorder Father Stroke Grandmother (Maternal) Lung cancer Other Family history of heart attack No family history of adverse response to anesthesia Denies family history of Ovarian cancer Prostate cancer Colorectal cancer Past Surgical History Surgical History H/O breast biopsy (2013) left History of arthroscopy right knee x 2 History of cardiac cath (2018) outlook, mi, 1 stent, follows with cardio Dr. Brock History of cataract surgery b/l History of colonoscopy History of dilation and curettage History of hip replacement (05/2018) right History of hysterectomy unsure of this History of tonsillectomy age 17 History of total knee replacement left knee x 2 Hx of cystoscopy Hx of heart artery stent (2018) outlook, mi, 1 stent, follows with cardio Dr. Brock Hx of lumpectomy (04/23/14) left Hx of oral surgery gum surgery Hx of toe surgery Hx of wisdom tooth extraction Past Anesthesia History No Hx of Anesthesia Complications and No Family Hx of Anesthesia Complications History of PONV No Hx of PONV and No Hx of Motion Sickness Social History Smoking Status: Never smoker Do You Dip or Chew Tobacco: No Hx Alcohol Use: Yes Alcohol type: wine alcohol intake frequency: a few times a month Hx Substance Use: No substance use type: does not use Review of Systems Patient denies chest pain, shortness of breath, dyspnea on exertion, reflux, cough, wheezing, palpitations. No hx of seizures, stroke. No hx of blood clots or blood transfusions Physical Exam Vital Signs VITALS BP 128/60 P 119 (patient denied dizziness, palpitations, irregular beats, or presyncope- had coffee at PAT appt, also had recent in family- did speak to patient 11/15/24- recheck at home was 80bpm per patient) TEMP 97.8 SP02 96% RESP 16 Constitutional no acute distress ENMT Mouth: no TMJ clicking Thyromental Distance: > or= 3.5 Finger Breadths (3.5) Mallampati Class: II Missing molars Neck neck extension not limited Respiratory normal respiratory effort; no respiratory distress Auscultation: lungs clear to auscultation bilaterally; no wheezes Cardiovascular Heart Sounds: no murmur Vessels: no carotid bruit [place] Musculoskeletal Spine: no pain with cervical ROM Extremities: extremities normal to inspection Psychiatric Orientation: alert Lab Results Anesthesia Preop Results Results Anesthesia Widget: WBC 6.41 K/ul (4.8-10.8) 11/14/24 Hgb 13.8 g/dl (12.0-16.0) 11/14/24 Hct 40.2 % (37.0-47.0) 11/14/24 Plt 264 K/uL (130-400) 11/14/24 Na 137 mmol/L (136-145) 11/14/24 K 4.4 mmol/L (3.5-5.1) 11/14/24 Cl 104 mmol/L (98-107) 11/14/24 CO2 23 mmol/L (21-32) 11/14/24 BUN 17 mg/dl (6-23) 11/14/24 Creat 0.77 mg/dl (0.6-1.2) 11/14/24 Glucose Level 167 mg/dl (70-99(Fasting)) H 11/14/24 PT 11.2 Seconds (9.0-12.0) 11/14/24 PTT 28 Seconds (21-31) 11/14/24 INR 1.0 (0.9-1.1) 11/14/24 HA1c 7.7 % (4.5-5.6) H 11/14/24 Blood Type A Negative 11/14/24 Antibody Screen NEGATIVE 11/14/24 Testing Electrocardiogram Date: 11/14/24 ST with frequent and consecutive PVCs at 119bpm When compared to EKG from January 02, 2022, PVCs are now present, T wave amplitude has decreased in lateral leads per cardio Chest X-Ray Date: 11/14/24 Findings: + NAD FINDINGS: Heart size and pulmonary vasculature are normal. No effusion or consolidation. Stable calcified granuloma at the left upper lung. Stable calcified mediastinal lymph node. Stable mild scoliosis. Echocardiogram Date: 04/05/19 EF: 65-70% LV Function: normal Other Findings: + LVH (mild/concentric) Valvular Disease: + no significant valvular disease Mild inferior base to mid HK Normal RV size and function Stress Test Date: 03/06/21 Type: exercise (ECHO) Negative exercise stress echo and EKG for ischemia at 112% MPHR Above average functional capacity for age. Exercised 6 minutes, achieving 7 METS No exercise-induced chest pain. Normal hemodynamic response to exercise Resting LVEF 55 to 60% with basal inferior, inferior septal hypokinesis. Normal RV size and function. No significant valvular pathology Cardiac Catheterization Date: 04/05/19 Findings: LM -Short, no significant disease LAD -moderate caliber vessel, 20 to 30% proximal to mid disease, small to moderate caliber second diagonal with 95% proximal stenosis. Circumflex -large caliber vessel, angiographically normal, gives off large OM 3, PLB without significant disease RCA -anterior takeoff, dominant, large caliber vessel, 80% hazy mid segment stenosis, distal luminal irregularities. Summary: 1. Acute 80% mid RCA stenosis 2. 95% proximal stenosis in small to moderate caliber second diagonal 3. Normal intracardiac filling pressure 4. Successful PCI of mid RCA with single drug-eluting stent (3.0 x 18 mm [place]; postdilated with 3.25 NC). Other Testing Carotid doppler 10/11/23= <50% stenosis of the right and left internal carotid arteries. Antegrade flow noted in the vertebral arteries.
[~2024-12-01 09:05] MED LIST changes: -AMX500 PO; -ANAS1TAB19 PO; -ATOR-24 PO; +BUPIVACAINE 0.5 % 5 MG/1 ML PF 10ML VIAL ONE; -CALC500C70 PO; -CARB25TA12 PO; -GABA-112 PO; -GADAVIST IV PRN; -IBUP-1050 PO; -LISI20TA3 PO; -MAGN1TAB21 PO; -METF-384 PO; -METO100T44 PO; -MULT-614 PO; -PRAM0.259 PO; -Probiotic PO; -TRAM-10 PO; -ZVRUNK PO; -lysine PO
[2024-12-01] MEDS: LR 60ML/HR IV SCH (09:42)
[2024-12-01] MEDS: dexAMETHasone**PF** 10 MG/ML VIAL IV SCH (09:43)
[2024-12-01] MEDS: FAMOTIDINE 20 MG TAB PO SCH (09:43)
[2024-12-01] MEDS: ACETAMINOPHEN 500 MG TAB PO SCH ×2 (09:43→16:49)
[2024-12-01] MEDS: GABAPENTIN 300 MG CAP PO SCH (09:44)
[2024-12-01] MEDS ORDERED: MIDAZOLAM HCL 1 MG/ML 2ML VIAL ONE ×2 (09:47)
[2024-12-01] MEDS ORDERED: ONDANSETRON INJ 2 MG/ML 2 ML VIAL ONE (09:47)
[2024-12-01] MEDS ORDERED: PROPOFOL IV EMULSION 10 MG/ML 20 ML VIAL IV ONE (09:47)
--- NOTE | 2024-12-01 10:07 | History & Physical Bridge Note ---
Date of Service December 01, 2024 History & Physical Bridge Note I have examined the patient, reviewed the History & Physical and in the interval since the performance of the History & Physical I have noted the following changes of clinical significance: no changes noted
[2024-12-01] MEDS ORDERED: PHENYLEPHRINE HCL 10 MG/ML VIAL ONE (10:41)
--- NOTE | 2024-12-01 10:49 | Anesthesiology Consultation ---
Date of Service December 01, 2024 Assessment & Plan Chart Review Chart Review: Acceptable Risk for Surgery Consults Requested none History Surgery Operation Date: 12/01/24 11:00 Proposed Procedures p Left Anterior Total Hip Arthroplasty - Luke Ross DO Height/Weight Height: 5 ft 7 in Weight: 66 kg Allergies Allergy/AdvReac Type Severity Reaction Status Date / Time latex Allergy Severe severe Verified 12/01/24 09:31 skin irritation gluten AdvReac Intermediate "sleepiness Verified 12/01/24 09:31 " mirtazapine AdvReac Mild weight gain Verified 12/01/24 09:31 Medications Home Medications Medication Instructions Recorded Confirmed Last Taken acetaminophen 500 mg tablet 500 mg PO Q6H PRN Pain 04/05/18 12/01/24 02/16/21 (Tylenol Extra Strength) diclofenac sodium 1 % topical gel 4 g topical QID PRN joint pain 10/07/20 12/01/24 02/15/21 lancets 33 gauge (BD Ultra Fine #100 ea 10/21/20 12/01/24 Unknown Lancets) multivitamin-ferrous 1 tab PO QAM 02/17/21 12/01/24 01/02/22 fumarate-folic acid 18 mg-400 mcg tablet (Centrum) blood sugar diagnostic (Contour 12/31/21 12/01/24 Unknown Next Test Strips) amoxicillin 500 mg capsule 2,000 mg (4 x 500 mg) PO UD PRN 05/21/23 12/01/24 Unknown BEFORE DENTAL PROCEDURE #4 caps ibuprofen 200 mg tablet 200 mg PO Q6H PRN Pain 05/21/23 12/01/24 11/27/24 22:00 gabapentin 600 mg tablet 600 mg PO TID #270 tabs 03/08/24 12/01/24 12/01/24 08:30 cholecalciferol (vitamin D3) 100 2,000 unit PO DAILY 03/30/24 12/01/24 Unknown mcg (4,000 unit) capsule vitamin B12 0.5 mg-folic acid 1 mg 1 tab PO DAILY 03/30/24 12/01/24 Unknown tablet nitroglycerin 0.4 mg sublingual 0.4 mg sublingual Q5M PRN chest 05/17/24 12/01/24 Unknown tablet pain #30 tabs metoprolol succinate 100 mg 100 mg PO HS #90 tabs 06/13/24 12/01/2411/30/25 22:00 tablet,extended release 24 hr (Toprol XL) FreeStyle Mercedez 2 [place] (flash #1 ea 07/31/24 12/01/24 Unknown glucose scanning reader) flash glucose sensor (FreeStyle #2 ea 07/31/24 12/01/24 Unknown Mercedez 2 Sensor kit) nystatin-triamcinolone 100,000 1 applic topical TID PRN Skin 09/05/24 12/01/24 Unknown unit/gram-0.1 % topical ointment Irritation #15 grams tirzepatide 10 mg/0.5 mL 10 mg (0.5 mL) subcut .weekly #2 mL 10/04/24 12/01/24 11/20/24 10:00 subcutaneous pen injector acyclovir 200 mg capsule 200 mg PO BID 11/08/24 12/01/24 12/01/24 08:30 aspirin 81 mg tablet,delayed 81 mg PO QAM 11/08/24 12/01/24 11/29/24 10:00 release escitalopram oxalate 5 mg tablet 5 mg PO HS 11/08/24 12/01/24 11/30/24 22:00 melatonin 5 mg tablet 5 mg PO HS PRN Sleep 11/08/24 12/01/24 11/30/24 22:00 metformin 1,000 mg tablet 1,000 mg PO BID 11/08/24 12/01/24 11/30/24 22:00 rosuvastatin 20 mg tablet 20 mg PO HS 11/08/24 12/01/24 11/30/24 22:00 lisinopril 10 mg tablet 10 mg PO DAILY 11/20/24 12/01/24 11/30/24 22:00 Active Medications Generic Name Dose Route Start Last Admin Trade Name Freq PRN Reason Stop Dose Admin Acetaminophen 1,000 mg 12/01/24 06:00 12/01/24 09:43 Acetaminophen 500 Mg Tab PO 12/01/24 18:00 1,000 mg PREOP MARISSA Administration Dexamethasone Sodium Phosphate 10 mg 12/01/24 06:00 12/01/24 09:43 DexamethasonePf 10 Mg/Ml Vial IV 12/01/24 18:00 10 mg PREOP MARISSA Administration Famotidine 20 mg 12/01/24 06:00 12/01/24 09:43 Famotidine 20 Mg Tab PO 12/01/24 18:00 20 mg PREOP MARISSA Administration Gabapentin 300 mg 12/01/24 06:00 12/01/24 09:44 Gabapentin 300 Mg Cap PO 12/01/24 18:00 300 mg PREOP MARISSA Administration Lactated Ringer's 1,000 mls @ 60 mls/hr 12/01/24 06:00 12/01/24 09:42 Lr IV 12/01/24 22:39 60 mls/hr .[id number] MARISSA Administration NPO Date Last Intake of Fluids: 12/01/24 Time Last Intake of Fluids: 08:30 Last Intake of Fluids Comment: sip with med Date Last Intake of Solids: 11/30/24 Time Last Intake of Solids: 22:00 Past Medical History Medical History CAD (coronary artery disease) 2018- s/p stent to mRCA, residual severe small diagonal disease Carotid artery plaque <50% stenosis to right and left ICA per 10/2023 carotid duplex Coccyx pain Mild/improving from fall in 09/2024- no fracture per patient Depression Diabetic retinopathy DM type 2 (diabetes mellitus, type 2) Dyslipidemia Genital herpes simplex no current outbreak, takes Valtrex for maintenance Gout no recent flares Hx of non-ST elevation myocardial infarction (NSTEMI) (2019) HX: breast cancer "Abnormal left breast mammogram 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 Status post lumpectomy and sentinel lymph node biopsy 04/23/2014 revealing s/p XRT ; no chemo Hypertension Insomnia Lumbar radiculopathy Memory impairment "forgetful" Mild per neuro visit 09/2024- discussed addressing sleep issues and to exerc ise after VINICIO (follow up PRN) Mixed stress and urge incontinence Osteoarthritis Peripheral neuropathy Restless leg syndrome Rosacea Sleep apnea no cpap Trigger finger, acquired Unsteady gait - Ongoing for several years- had EMGs- neuropathy to legs vs nerve damage from previous knee surgery - Continues with balance issues after stopping Amlopidpine Past Family History Family History Family/Other Family history of diabetes mellitus Sister Chronic liver disease Mother Bone cancer Breast cancer Cancer Family/Other Diabetes Cardiac disorder Father Stroke Grandmother (Maternal) Lung cancer Other Family history of heart attack No family history of adverse response to anesthesia Denies family history of Ovarian cancer Prostate cancer Colorectal cancer Past Surgical History Surgical History H/O breast biopsy (2013) left History of arthroscopy right knee x 2 History of cardiac cath (2018) [facility], [place], follows with cardio Dr. Brock History of cataract surgery b/l History of colonoscopy History of dilation and curettage History of hip replacement (05/2018) right History of hysterectomy unsure of this History of tonsillectomy age 17 History of total knee replacement left knee x 2 Hx of cystoscopy Hx of heart artery stent (2018) [facility], 1 stent, follows with cardio Dr. Brock Hx of lumpectomy (04/23/14) left Hx of oral surgery gum surgery Hx of toe surgery Hx of wisdom tooth extraction Social History Smoking Status: Never smoker Do You Dip or Chew Tobacco: No Hx Alcohol Use: Yes Alcohol type: wine alcohol intake frequency: a few times a month Hx Substance Use: No substance use type: does not use Physical Exam Vital Signs Last Vital Signs Temp 36.5 C 12/01/24 10:07 Pulse 80 12/01/24 10:07 Resp 16 12/01/24 10:07 BP 111/61 12/01/24 10:07 Pulse Ox 96 12/01/24 10:07 O2 Del Method Room Air 12/01/24 10:07 Testing Laboratory Results 12/01/24 09:39 POC Glucose 181 H
[2024-12-01] MEDS: TRANEXAMIC ACID 1,000 MG **IV Pre-op IV SCH (11:00)
[2024-12-01] MEDS: ceFAZolin 2000MG 2,000 MG/15 ML SYR IV SCH (11:12)
[2024-12-01] MEDS ORDERED: ATROPINE SULFATE 0.1 MG/ML 10ML SYR IV PRN (11:21)
[2024-12-01] MEDS ORDERED: HYDROmorphone INJ 2 MG/ML SYR/VIAL IV PRN (11:21)
[2024-12-01] MEDS ORDERED: PROMETHAZINE HCL 6.25 MG in SODIUM CHLORIDE 0.9% 50 ML IV PRN (11:21)
[2024-12-01] MEDS ORDERED: ePHEDrine sulfate 50 MG/ML AMP IV PRN (11:21)
[2024-12-01] MEDS ORDERED: ONDANSETRON INJ 2 MG/ML 2 ML VIAL IV PRN ×2 (11:21→15:21)
[2024-12-01] MEDS ORDERED: fentaNYL citrate PF 100 MCG/2 ML VIAL IV PRN (11:21)
[2024-12-01] MEDS: ROPIV 0.5% 246mg, Ketorolac 30mg, EPINEPHrine 0.5mg in NSS INFIL SCH (11:44)
[2024-12-01] MEDS: ORTHO JOINT ANESTHETIC ONE (11:45)
[2024-12-01] MEDS: TRANEXAMIC ACID 1,000 MG **IV Intra-op IV SCH (11:59)
--- NOTE | 2024-12-01 12:04 | Operative Report ---
PG Post Operative Report Pre & Post Diagnosis Operation Date: 12/01/24 11:00 Pre-Op Diagnosis: Left Hip Osteoarthritis Post-Op Diagnosis: Left Hip Osteoarthritis I identified the patient and participated in the time-out.: Yes Procedure Operation Date: 12/01/24 11:00 Actual Procedures p Left Anterior Total Hip Arthroplasty(Left) - Luke Ross DO Surgeon Luke Ross DO Steel Spar Operator Devin Correa PA-C Estimated Blood Loss 100 Findings Consistent with Post-Op Diagnosis Specimens Left femoral head Description of Procedure Implants used I used a ZimmerBiomet total hip arthroplasty system with a size 2 standard offset Z1 stem, a 48 mm G7 cup with a 25mm screw, an E1 polyethylene liner, a 32 mm ceramic head with a 0 neck. Doris arrived at the hospital for the above procedure. She was seen in the preoperative holding area and the operative extremity was identified and signed. She was given a spinal anesthetic, a preoperative antibiotic, and TXA. She was then taken back to the operating room and laid on the table in the supine position. She was given basic sedation. The operative leg was secured to a Puristst leg positioner. The hip was then prepped and draped in sterile fashion. A timeout was done and the patient and the operative extremity was properly identified. An anterior approach was used. Dissection was taken down through the fascia and the tensor muscle belly was retracted laterally and the rectus was retracted medially. The circumflex vessels were identified and ligated. The capsule was then incised and tagged for later repair. The femoral neck was then cut and the femoral head was removed. The acetabulum was exposed. Time was spent doing a complete circumferential labral release. Sequential reaming of the acetabulum up to a size 47 reamer was done. Final reamings were done under fluoroscopy to ensure appropriate version. A Biomet 48 mm G7 cup was then impacted into place. A single 25 mm screw was placed. The E1 polyethylene liner was then snapped into place. Surrounding soft tissues were then injected with 100 cc of an orthopedic pain control cocktail. The proximal femur was then exposed. Sequential broaching up to a size 2 broach was done. Off that broach a size 32 head with a 0 neck was trialed. The hip was reduced and fluoroscopic images showed anatomic alignment of the implants in acceptable length. The broach was removed. The final size 2 standard offset Z1 stem was then impacted into place. A ceramic 32 mm head with a 0 neck was then impacted onto the stem and the hip was reduced. Final fluoroscopic images showed anatomic alignment of the hip. The capsule was then closed with #1 Vicryl suture. A dilute betadyne lavage was then done for 3 minutes. The joint was then irrigated with normal saline solution. The fascia was closed with #1 PDS suture. Skin was closed with 2-0 Vicryl, latoya, and a Silverlon dressing. She was then transferred to a hospital bed and taken to the post anesthesia care unit in stable condition. She tolerated the procedure well. Devin Correa PA-C, was present for the entire procedure. He was critical for patient positioning, prepping, draping, retraction exposure, wound closure and application of sterile dressing. I attest to the content of the Intraoperative Record and any orders documented therein. Any exceptions are noted below.
--- NOTE | 2024-12-01 12:13 | Fluoroscopy Report ---
FL hip LT 1V CLINICAL HISTORY: LEFT HIP ANTERIOR HIP COMPARISON STUDY: Hip radiographs to 425 FLUOROSCOPY TIME: 11.1 seconds FLUOROSCOPY IMAGES: 1 EXPOSURE DOSE: 0.6981 mGy FINDINGS: Satisfactory alignment of the left hip arthroplasty with expected postoperative soft tissue swelling and deep tissue air. No unexpected opaque foreign bodies. Partially imaged right hip arthro plasty. IMPRESSION: Fluoroscopic assistance as above. ACT 112: Negative or not required by law. Electronically signed by: Timmy Edwards M.D. 12/01/2024 12:12 PM
--- NOTE | 2024-12-01 13:02 | XRay Report ---
XR hip 1V LT w pelvis CLINICAL HISTORY: Postoperative evaluation. COMPARISON: Left hip radiograph September 05, 2024. FINDINGS: Alignment of the total left hip arthroplasty is anatomic. There is no periprosthetic fract ure or unexpected radiopaque body. There are skin latoya. Right hip arthroplasty is intact. IMPRESSION: Expected findings following total left hip arthroplasty. ACT 112: Negative or not required by law. Electronically signed by: Jose Manzo M.D. 12/01/2024 1:01 PM
[2024-12-01] MEDS ORDERED: oxyCODONE HCL IR 5 MG TAB (IMMEDIATE RELEASE) PO PRN (15:21)
[2024-12-01] MEDS ORDERED: bisacodyL 10 MG SUPP PR PRN (15:21)
[2024-12-01] MEDS ORDERED: NALOXONE HCL 0.4 MG/1 ML VIAL/CARP IV PRN (15:21)
[2024-12-01] MEDS ORDERED: METOCLOPRAMIDE HCL INJ 5 MG/ML 2 ML VIAL IV PRN (15:21)
[2024-12-01] MEDS ORDERED: NON-FORMULARY MEDICATION (Flash Glucose Sensor [Freestyle Libre 2 Sensor] kit) SCH (15:21)
[2024-12-01] MEDS ORDERED: MAGNESIUM HYDROXIDE SUSP 30 ML UDC PO PRN (15:21)
[2024-12-01] MEDS ORDERED: HYDROmorphone INJ 0.5 MG/0.5 ML SYR IV PRN (15:21)
[2024-12-01] MEDS ORDERED: NON-FORMULARY MEDICATION (Tirzepatide 10 mg/0.5 mL pen injector) SQ SCH (15:21)
[2024-12-01] MEDS ORDERED: PHARMACY GLYCEMIC MGMT CONSULT PRN (15:21)
[2024-12-01] MEDS ORDERED: BLOOD SUGAR DIAGNOSTIC SCH (15:21)
[2024-12-01] MEDS ORDERED: LANCETS SCH (15:21)
[2024-12-01] MEDS ORDERED: CARBOHYDRATES FOR HYPOGLYCEMIA PO PRN (15:45)
[2024-12-01] MEDS ORDERED: DEXTROSE 50% 50 ML SYRINGE IV PRN (15:45)
[2024-12-01] MEDS ORDERED: GLUCAGON FOR INJ 1 MG VIAL SQ PRN (15:45)
[2024-12-01] MEDS ORDERED: GLUCOSE 40% GEL 15 GM TUBE PO PRN (15:45)
[2024-12-01] MEDS ORDERED: GLUCOSE 10 TAB/TUBE PO PRN (15:45)
--- NOTE | 2024-12-01 15:49 | Anesthesiology Progress Note ---
Date of Service December 01, 2024 Anesthesia Post Procedure Vital Signs Vital Signs: Temp Pulse Pulse Resp BP BP Pulse Ox 12/01/24 15:25 72 18 135/75 95 12/01/24 14:55 79 24 125/68 99 12/01/24 14:25 76 10 L 127/75 97 12/01/24 14:10 75 12 125/68 96 12/01/24 13:55 76 16 133/72 97 12/01/24 13:40 76 22 111/67 97 12/01/24 13:25 36.6 C 73 14 117/63 95 12/01/24 13:15 73 12 116/63 96 12/01/24 13:05 72 17 117/65 97 12/01/24 12:55 75 14 118/60 96 12/01/24 12:45 77 13 110/59 L 96 12/01/24 12:35 85 23 105/63 96 12/01/24 12:25 36.4 C L 85 12 101/59 L 92 12/01/24 10:07 36.5 C 80 16 111/61 96 O2 Del Method O2 Flow Rate 12/01/24 15:25 Room Air 12/01/24 14:55 Nasal Cannula 2 12/01/24 14:25 Nasal Cannula 2 12/01/24 14:10 Nasal Cannula 2 12/01/24 13:55 Nasal Cannula 2 12/01/24 13:40 Nasal Cannula 2 12/01/24 13:25 Nasal Cannula 2 12/01/24 13:15 Nasal Cannula 2 12/01/24 13:05 Nasal Cannula 2 12/01/24 12:55 Nasal Cannula 2 12/01/24 12:45 Nasal Cannula 4 12/01/24 12:35 Oxymask 6 12/01/24 12:25 Oxymask 10 12/01/24 10:07 Room Air Transfer of Care Handoff Completed per policy Notes Mental Status: alert / awake / arousable and participated in evaluation Nausea / Vomiting: adequately controlled Pain: adequately controlled Airway Patency, RR, SpO2: stable & adequate BP & HR: stable & adequate Hydration State: stable & adequate Neuraxial Anesthesia: was administered and sensory block is resolving Anesthetic Complications: no major complications apparent and Pt Satisfied with anesthetic care
[2024-12-01] MEDS: SODIUM CHLORIDE 0.9% 1,000 ML IV SCH (16:26)
[2024-12-01] MEDS: KETOROLAC TROMETHAMINE 15 MG/ML VIAL IV SCH (16:50)
[2024-12-01] MEDS: GABAPENTIN 600 MG TAB PO SCH (16:50)
[2024-12-01] MEDS: INSULIN ASPART PER UNIT CHARGE SC SCH (16:53)
[2024-12-01] MEDS: LANTUS PER UNIT CHARGE SC ONE (18:00)
[2024-12-01] MEDS: ceFAZolin 1000MG 1,000 MG/7.5 ML SYR IV SCH (18:00)
[2024-12-01] MEDS ORDERED: metFORMIN HCL 500 MG TAB PO SCH (21:00)
[2024-12-01] MEDS: SENNA 8.6 MG TAB PO SCH (21:34)
[2024-12-01] MEDS: DOCUSATE SODIUM 100 MG CAP PO SCH (21:34)
[2024-12-01] MEDS: METOPROLOL SUCC 50MG EXT REL TAB PO SCH (21:35)
[2024-12-01] MEDS: ESCITALOPRAM OXALATE 10 MG TAB PO SCH (21:35)
[2024-12-01] MEDS: ROSUVASTATIN CALCIUM 20 MG TAB PO SCH (21:36)
[2024-12-01] MEDS: MELATONIN 3 MG TAB PO PRN (22:06)
[2024-12-01] MEDS: ASPIRIN 81 MG ECTAB PO SCH (22:06)
[2024-12-02] MEDS: INSULIN ASPART PER UNIT CHARGE SC ONE (02:48)
--- NOTE | 2024-12-02 06:40 | Orthopedic Progress Note ---
Date of Service December 02, 2024 Assessment & Plan (1) Status post left hip replacement: Overall she is doing fairly well. She is not having much pain in the left hip. She will be seen by physical therapy today for ambulation and range of motion exercises. She is on aspirin for DVT prophylaxis. She can be discharged to home later today. She will follow-up with orthopedics in 2 weeks. Momo George was seen and examined at bedside this morning. Overall she is doing fairly well. She is not having much pain in the left hip. She has been up and ambulating to the bathroom. She has no complaints.. Review of Systems All systems reviewed & are unremarkable except as noted in HPI & below. Physical Exam On physical exam of the left hip, the dressing is clean and dry. Her leg is out full extension. She has active dorsiflexion plantarflexion of her left ankle.. Results & Data Results & Data Laboratory Results . Diagnostic Findings Postoperative x-rays of the left hip show the prosthesis to be in anatomic alignment without any evidence of fracture, dislocation, or loosening.. PG Care Time/CCT Total # of Minutes Spent Total Time Spent with Patient: Total time spent is greater than 50% in coordination of care (as documented) at patient's floor/unit and/or counseling patient: Coding Level of Care Code 27240 Post Operative Follow-Up Diagnoses Status post left hip replacement Z96.642
--- NOTE | 2024-12-02 06:42 | Discharge Summary ---
Date of Service December 02, 2024 Principal Diagnosis Same as "Discharge Diagnosis" noted below under Discharge Instructions. Discharge Exam On physical exam of the left hip, the dressing is clean and dry. Her leg is out full extension. She has active dorsiflexion plantarflexion of her left ankle.. Discharge Data Procedures Performed Operation Date: 12/01/24 11:00 Actual Procedures p Left Anterior Total Hip Arthroplasty(Left) - Luke Ross DO Ordered Studies 12/01/24 11:00 FL hip LT 1V Routine Hospital Course (1) Status post left hip replacement: On December 01, 2024 Doris arrived at [facility] and underwent a left hip replacement without complication. She had a spinal anesthetic. Postoperatively, she was started on aspirin for DVT prophylaxis and transferred to the general orthopedic floors. Her hospital course was uneventful. On postop day #1, her vital signs were stable and her pain was well-controlled. She was able to participate well with physical therapy doing ambulation and range of motion exercises. She was then discharged to home. She will follow-up with orthopedics in 2 weeks. PG Care Time/CCT Total # of Minutes Spent Total Time Spent with Patient: Total time spent is greater than 50% in coordination of care (as documented) at patient's floor/unit and/or counseling patient: Discharge Plan Discharge Items Patient Disposition: Home - Self-Care Reason For Visit: Left Hip Osteoarthritis Discharge Diagnosis: Left hip replacement Activity: Per Instructions section Non-emergency contact: Surgeon Call non-emergency contact if: your wound has increased redness and your wound has increased drainage Follow-up/Referrals: Luke Alonzo DO [Primary Care Provider] - Diet: Regular Addtl Attending Provider Instructions: Activity and Therapy Recommendations: * If you are using [facility] then therapy will be provided at your home until they feel you have accomplished all of your goals. * If you are using [facility] then Physical Therapy will be provided until they feel you are ready to start Outpatient Physical Therapy. * If you are not using home therapy then Outpatient Physical Therapy should start about 3-5 days from your day of surgery. Therapy will last about 6-10 weeks * You were shown a series of exercises in the hospital. Do these exercises three times each day including the exercises you were shown in physical therapy. * Get up and walk several times each day.~ For the first four weeks, try not to stand or walk for more than one hour at a time. If you do stand or walk for more than one hour, you will not hurt anything, but your leg will likely swell.~~ * As you feel comfortable, you may change from the walker or crutches to a cane and~then to independent walking. Medications: * Narcotic You will likely be sent home from the hospital with a prescription for the narcotic pain medication that worked best throughout your stay. * Cefadroxil -take the antibiotic twice a day for 10 days to help prevent infection. * Aspirin Most patients will be required to take Aspirin 81mg twice a day for 6 weeks after surgery. This is obtained [id number] and a prescription is not necessary. * Other medications may be prescribed for specific circumstances. If you have any questions, please call the office at . * Resume previous home medications unless otherwise instructed TEDs/Elastic Stockings: The white elastic stockings help limit swelling and prevent blood clots from forming in your legs. The more you wear them, the more they work. Wear them for 2 weeks. Dressing Care: Leave the Silverlon dressing in place for 7 days. After 7 days you may remove the dressing. If the incision is not draining then you may leave the latoya open to air. If there is a little bit of drainage or if the latoya are getting stuck on your clothing then cover the incision with a dry dressing. The latoya will be removed at your 2 week follow-up appointment. Showering: You may shower with the Silverlon dressing in place. Do not let the shower spray hit the dressing directly. Pat the Silverlon dressing dry. If the dressing becomes wet underneath, then simply remove the dressing. Keep the incision dry until you are 7 days out from the day of surgery. After 7 days you may remove the Silverlon dressing and shower with the latoya exposed. Let soapy water run over the latoya and pat them dry. Do not scrub or soak the incision. Diet: You may resume your previous diet. Things To Watch For: * Drainage from the incision site that occurs more than one week after your surgery. * Increased redness at the incision site. * Fever above 102 degrees Fahrenheit. * Unusual chest pain or shortness of breath. * Call [facility] at with any of the above problems Follow-Up Visit: Follow-up with Dr. Ross's office 2-3 weeks after your day of surgery. We will remove your latoya and answer any questions. If you have any additional questions or concerns, Dr Ross is usually in the office at the same time and will be available An appointment was probably scheduled when you signed-up for surgery in the office. If you have any questions call Office Instructions: More detailed instructions as well as Frequently Asked Questions were provided in a folder by our office when you signed-up for surgery. Please review these instructions when you get home. If you have any further questions or concerns, please feel free to call the office at [phone] Pending Studies at Discharge: No Stand-Alone Forms: [facility] [employer], Smoking Cessation Medications and DC Order Prescriptions: New oxycodone 5 mg tablet 5 mg PO Q6H PRN (Reason: pain) Qty: 30 0RF cefadroxil 500 mg capsule 500 mg PO BID 10 Days Qty: 20 0RF Continued nitroglycerin 0.4 mg tablet, sublingual 0.4 mg SL Q5M PRN (Reason: chest pain) Qty: 30 0RF Rx Instructions: do not exceed 3 doses per episode metoprolol succinate [Toprol XL] 100 mg tablet extended release 24 hr 100 mg PO HS Qty: 90 3RF (DME) FreeStyle Mercedez 2 [place] Misc See Rx Instructions .Route Qty: 1 0RF Rx Instructions: Use to monitor blood sugars daily (DME) FreeStyle [place] 2 Sensor Kit See Rx Instructions .ROUTE .MEDSUPPLY Qty: 2 5RF Rx Instructions: Change every 14 days nystatin-triamcinolone 100,000-0.1 unit/gram-% ointment 1 applic TOP TID PRN (Reason: Skin Irritation) Qty: 15 0RF Rx Instructions: Apply three times daily to affected area(s) in perineum. tirzepatide 10 mg/0.5 mL pen injector 10 mg subcut .weekly Qty: 2 5RF diclofenac sodium 1 % gel 4 g TOP QID PRN (Reason: joint pain) Rx Instructions: apply to single knee, ankle, foot; for foot includes sole/toes/top of foot ibuprofen 200 mg tablet 200 mg PO Q6H PRN (Reason: Pain) amoxicillin 500 mg capsule 2,000 mg PO UD PRN (Reason: BEFORE DENTAL PROCEDURE) Qty: 4 0RF (DME) Contour Next Test Strips Strip See Rx Instructions .ROUTE .MEDSUPPLY Rx Instructions: tests 1 times daily (DME) lancets [BD Ultra Fine Lancets] 33 gauge misc See Rx Instructions .ROUTE .MEDSUPPLY Qty: 100 Rx Instructions: periodically gabapentin 600 mg tablet 600 mg PO TID Qty: 270 3RF lisinopril 10 mg tablet 10 mg PO DAILY acetaminophen [Tylenol Extra Strength] 500 mg Tablet 500 mg PO Q6H PRN (Reason: Pain) Centrum 18-400 mg-mcg Tablet 1 tab PO QAM melatonin 5 mg Tablet 5 mg PO HS PRN (Reason: Sleep) metformin 1,000 mg tablet 1,000 mg PO BID acyclovir 200 mg capsule 200 mg PO BID Rx Instructions: Can take up to 5 pills (100mg) if in outbreak. rosuvastatin 20 mg tablet 20 mg PO HS escitalopram oxalate 5 mg tablet 5 mg PO HS vitamin [id number] acid 0.5-1 mg Tablet 1 tab PO DAILY Vitamin D3 100 mcg (4,000 unit) Capsule 2,000 unit PO DAILY Changed aspirin 81 mg tablet,delayed release (DR/EC) 81 mg PO BID 42 Days Qty: 0 0RF Discharge Orders: Discharge Order (Routine); Ordered 12/02/24 Ordered By: Luke Ross Admission Data Admit Date/Time: 12/01/24 12:29 Attending Provider: Luke Ross Admit Provider: Luke Ross Primary Care Provider: Luke Alonzo
[2024-12-02 07:55] VITALS: BP 141/83; PULSE 74; RESP 16; TEMP 98.1; O2SAT 98
[2024-12-02] MEDS: lisinopril 10 MG TAB PO SCH (07:55)
[2024-12-02] MEDS: MULTIVITAMIN TAB PO SCH (07:56)
== END 2024-12-02 12:44 | disposition home or self-care (01) ==
LOC: ASU 09:05 → PACUINP 09:05 → 3E 16:15

== ENCOUNTER 2024-12-04 10:50 | Observation (INO) ==
[2024-12-04] MEDS ORDERED: MoRPHine SULFATE 4 MG/ML 1 ML CARP\\VIAL IV STA (11:33)
[2024-12-04] MEDS ORDERED: ONDANSETRON INJ 2 MG/ML 2 ML VIAL IV STA (11:34)
--- NOTE | 2024-12-04 11:41 | Emergency Department Note ---
Impression & Plan Weakness, Fall, Contusion of left shoulder, Acute hip pain ED Provider Note NAME: TRACY SABILLON AGE: 74 SEX: F : 1950 ARRIVES VIA: Ambulance INFORMANT: Patient ED PROVIDER(S): Jaden Tolentino DO CHIEF COMPLAINT: Fall HPI: Patient is a 74-year-old female with a past medical history of diabetes, hypertension, osteoarthritis, dyslipidemia, GERD and chronic balance issues who presents to the ER status post left hip replacement performed by Dr. Ross this past Wednesday. She notes that yesterday she fell while she had the dogs around her feet and she tripped over them. She notes she fell onto her left side. She did hit her left hip. She denies hitting her head. Denies any head or neck pain. Admits to left shoulder pain. No chest pain or shortness of breath. No belly pain. No nausea, vomiting, or diarrhea. No dysuria, urgency, or frequency. No other exacerbating or remitting factors. Her family has been helping her immensely which include her sisters. ADDITIONAL HISTORY OBTAINED: Per HPI Chronic Medical/Social Conditions Affecting Care: Per HPI PAST MEDICAL HISTORY:See Below PAST SURGICAL HISTORY:See Below FAMILY HISTORY:See Below SOCIAL HISTORY:See Below HOME MEDICATIONS:See Below ALLERGIES:See Below VITALS:See Below PHYSICAL EXAMINATION: GENERAL: alert, well appearing, well nourished, but moderate pain with any movement HEAD: normal cephalic, atraumatic EYE EXAM: normal conjunctiva, PERRL and EOM's grossly intact OROPHARYNX: no exudate, no erythema, lips, buccal mucosa, and tongue normal and mucous membranes are moist NECK: supple, no nuchal rigidity, no adenopathy, non-tender CHEST: stable to compression anteriorly and posteriorly LUNGS: clear to auscultation. Normal chest wall mechanics HEART: no murmurs, S1 normal and S2 normal ABDOMEN: abdomen soft, non-tender, normo-active bowel sounds, no masses, no rebound or guarding. PELVIS: stable to compression anteriorly and posteriorly BACK: Back is symmetrical on inspection and there is no deformity, no midline tenderness, no CVA tenderness. UPPER EXTREMITIES: No tenderness on palpation of the entire right upper extremity. Tenderness over the left humerus but no pain in the left mid to distal humerus, elbow, forearm, wrist and hand. Radial pulse are 2 out of 4. LOWER EXTREMITIES: full active and passive range of motion of all joints without tenderness to palpation of the right lower extremity. DPs are 2 out of 4 bilaterally. Left hip with dressing still in place. No surrounding erythema bleeding or drainage. No pain with minimal flexion as well as internal/external rotation of the hip. Notes no pain throughout the medial distal femur knee tib- fib ankle or foot. Bandage was removed and small amount of liquid runoff which was blood-tinged. NEURO EXAM: Normal sensorium, cranial nerves II-XII grossly intact, normal speech, no gross weakness of arms, no gross weakness of legs. GCS: 15. MEDICAL DECISION MAKING: Patient is a 74-year-old female who presents to the ER status post left hip surgery performed by Dr. Ross on Wednesday. She has been at home having her sisters assist her. She fell yesterday. They finally were able to bring her in today. She is having left shoulder pain and left hip pain. She having trouble getting around and caring for herself. Patient denies any head pain or neck pain. No chest pain or shortness of breath. Pain is in the left shoulder. She also notes that she noticed some blood around her left hip. No dysuria, urgency or frequency. No other exacerbating or remitting factors. Discussed with MARIE Pink from [facility]. She was agreeable with having the dressing removed. Did remove the dressing on the wound and dried blood was present. No active bleeding. Discussed with the patient and sister at bedside. Patient was slightly elevated. Heart rate ordered morphine. She was given IV fluids and Zofran. Consults/Care Managements Discussions: Per [facility] Triage Nursing notes reviewed. Limited review of prior medical records performed Vital Signs: reviewed and remarkable for HTN and tachy Differential diagnosis: Differential diagnoses include major intracranial, cervical, spinal, thoracic, abdominal, pelvic and neurologic injury. Fracture, contusion, sprain, strain, laceration, abrasions included as well. ER treatment provided: See below Diagnostics interpreted by me include EKG and cardiac monitoring as listed below: -Cardiac Monitoring: An order was placed for continuous cardiac monitoring. The monitor shows a rate of 90 with sinus rhythm. -ECG: Sinus tachycardia rate of 128 Normal axis PACs QTc 408 -Laboratory studies:Interpreted by me as stated above in MDM and shown below. Imaging studies: Xrays: As interpreted by me: X-ray of the left hip and pelvis shows no acute fracture X-ray left shoulder shows no acute fracture CTs show: CT head was negative per radiology Portable AP upright 1 view of the chest shows no focal infiltrate Procedures:none Critical Care: None Past Med/Surg History Problem List (Updated 12/04/24 @ 13:39 by Jaden Tolentino DO) Acute hip pain (Acute) Contusion of left shoulder (Acute) Fall (Acute) Weakness (Acute) Status post left hip replacement (~11/2024) Encounter for pre-operative examination Hepatic steatosis Neg Ct 12/2022 Sensorineural hearing loss, bilateral Memory impairment Osteoarthritis of left hip Urinary urgency Insomnia MDD (major depressive disorder), recurrent episode, mild Urinary frequency Microscopic hematuria Non-proliferative diabetic retinopathy Mixed stress and urge incontinence Balance disorder Osteoarthritis of right knee Hypertension (Chronic) Arteriosclerotic coronary artery disease (Chronic) Dyslipidemia GERD (gastroesophageal reflux disease) Diabetes mellitus, type 2 (Chronic) Restless leg syndrome (Acute) Sleep apnea (Chronic) oral appliance Medical History CAD (coronary artery disease) 2019- s/p stent to mRCA, residual severe small diagonal disease Carotid artery plaque <50% stenosis to right and left ICA per 10/2023 carotid duplex Coccyx pain Mild/improving from fall in 09/2024- no fracture per patient Depression Diabetic retinopathy DM type 2 (diabetes mellitus, type 2) Dyslipidemia Genital herpes simplex no current outbreak, takes Valtrex for maintenance Gout no recent flares Hx of non-ST elevation myocardial infarction (NSTEMI) (2019) HX: breast cancer "Abnormal left breast mammogram 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 Status post lumpectomy and sentinel lymph node biopsy 04/23/2014 revealing s/p XRT ; no chemo Hypertension Insomnia Lumbar radiculopathy Memory impairment "forgetful" Mild per neuro visit 09/2024- discussed addressing sleep issues and to exercise after VINICIO (follow up PRN) Mixed stress and urge incontinence Osteoarthritis Peripheral neuropathy Restless leg syndrome Rosacea Sleep apnea no cpap Trigger finger, acquired Unsteady gait - Ongoing for several years- had EMGs- neuropathy to legs vs nerve damage from previous knee surgery - Continues with balance issues after stopping Amlopidpine Surgical History H/O breast biopsy (2013) left History of arthroscopy right knee x 2 History of cardiac cath (2019) [facility], 1 stent, follows with cardio Dr. Brock History of cataract surgery b/l History of colonoscopy History of dilation and curettage History of hip replacement (05/2018) right History of hysterectomy unsure of this History of tonsillectomy age 17 History of total knee replacement left knee x 2 Hx of cystoscopy Hx of heart artery stent (2019) [facility], 1 stent, follows with cardio Dr. Brock Hx of lumpectomy (04/23/14) left Hx of oral surgery gum surgery Hx of toe surgery Hx of wisdom tooth extraction Family History Family/Other Family history of diabetes mellitus Sister Chronic liver disease Mother Bone cancer Breast cancer Cancer Family/Other Diabetes Cardiac disorder Father Stroke Grandmother (Maternal) Lung cancer Other Family history of heart attack No family history of adverse response to anesthesia Denies family history of Ovarian cancer Prostate cancer Colorectal cancer Social History Smoking Status: Never smoker Second Hand Exposure: No; Do You Dip or Chew Tobacco: No; Hx Alcohol Use: Yes Alcohol type: wine Alcohol Intake Frequency: Never Hx Substance Use: No Preferred Language: Turkmen Communication Ability: Effective Communication Ability Comment: "forgetful" - alert and oriented x3. Visual Impairment: Limited Hearing Ability: Normal Small Electric Engine Technician Required: No Beliefs That Will Affect Care: Latter-Day Latter-Day Beliefs: yarsani marital status: Single Current Living Situation: Alone current occupational status: retired current occupation: retired Feels Safe at Home: Yes Childhood Exposure to Second-Hand Smoke: Yes (dad smoked at times/siblings smoked) Diet: low carbohydrate, low salt and regular Diet Comment: tries to avoid gluten and carbs for diabetes. caffeine: Yes (3 cups in the morning and 1 cup of tea in afternoon. ) Dental Care, Regularly: Yes Physical Activity Frequency: Does not Exercise Physical Activity Frequency Comment: walks her dog Seatbelt Use: always Sunscreen Use: No Do you think of yourself as: straight/heterosexual Gender Identity: Female Assistive Devices: Walker Allergies Allergies Allergy/AdvReac Type Severity Reaction Status Date / Time latex Allergy Severe severe Verified 12/01/24 09:31 skin irritation gluten AdvReac Intermediate "sleepiness Verified 12/01/24 09:31 " mirtazapine AdvReac Mild weight gain Verified 12/01/24 09:31 Home Meds Home Medications Medication Instructions Recorded Confirmed acetaminophen 500 mg tablet 500 mg PO Q6H PRN Pain 04/05/18 12/01/24 (Tylenol Extra Strength) diclofenac sodium 1 % topical gel 4 g topical QID PRN joint pain 10/07/20 12/01/24 lancets 33 gauge (BD Ultra Fine #100 ea 10/21/20 12/01/24 Lancets) multivitamin-ferrous 1 tab PO QAM 02/17/21 12/01/24 fumarate-folic acid 18 mg-400 mcg tablet (Centrum) blood sugar diagnostic (Contour 12/31/21 12/01/24 Next Test Strips) ibuprofen 200 mg tablet 200 mg PO Q6H PRN Pain 05/21/23 12/01/24 cholecalciferol (vitamin D3) 100 2,000 unit PO DAILY 03/30/24 12/01/24 mcg (4,000 unit) capsule vitamin B12 0.5 mg-folic acid 1 mg 1 tab PO DAILY 03/30/24 12/01/24 tablet acyclovir 200 mg capsule 200 mg PO BID 11/08/24 12/01/24 escitalopram oxalate 5 mg tablet 5 mg PO HS 11/08/24 12/01/24 melatonin 5 mg tablet 5 mg PO HS PRN Sleep 11/08/24 12/01/24 metformin 1,000 mg tablet 1,000 mg PO BID 11/08/24 12/01/24 rosuvastatin 20 mg tablet 20 mg PO HS 11/08/24 12/01/24 lisinopril 10 mg tablet 10 mg PO DAILY 11/20/24 12/01/24 Previous Rx's Medication Instructions Recorded amoxicillin 500 mg capsule 2,000 mg (4 x 500 mg) PO UD PRN 05/21/23 BEFORE DENTAL PROCEDURE #4 caps gabapentin 600 mg tablet 600 mg PO TID #270 tabs 03/08/24 nitroglycerin 0.4 mg sublingual 0.4 mg sublingual Q5M PRN chest 10/16/24 tablet pain #30 tabs metoprolol succinate 100 mg 100 mg PO HS #90 tabs 06/13/24 tablet,extended release 24 hr (Toprol XL) FreeStyle [place] 2 [place] (flash #1 ea 07/31/24 glucose scanning reader) flash glucose sensor (FreeStyle #2 ea 07/31/24 Mercedez 2 Sensor kit) nystatin-triamcinolone 100,000 1 applic topical TID PRN Skin 09/05/24 unit/gram-0.1 % topical ointment Irritation #15 grams tirzepatide 10 mg/0.5 mL 10 mg (0.5 mL) subcut .weekly #2 mL 10/04/24 subcutaneous pen injector aspirin 81 mg tablet,delayed 81 mg PO BID 42 days #0 tabs 12/01/24 release cefadroxil 500 mg capsule 500 mg PO BID 10 days #20 caps 12/01/24 oxycodone 5 mg tablet 5 mg PO Q6H PRN pain #30 tabs 12/01/24 Results & Data (ED) Vital Signs Vital Signs - 24 hr 12/04/24 10:50 12/04/24 11:10 12/04/24 11:25 Temperature 37.1 C Temperature Source Oral Pulse Rate 135 H 135 H 130 H Pulse Rhythm Regular Respiratory Rate 16 16 Respiratory Effort / Characteristics Non-Labored Respiratory Depth Normal Respiratory Pattern Regular Blood Pressure 152/94 H Blood Pressure Mean 113 Pulse Oximetry 97 97 Oxygen Delivery Method Room Air Room Air Sepsis Recent Fever Within 48 Hours No Sepsis New/Unexplained Change in Mental Status N/A Sepsis Action Taken by Nursing No Action Required 12/04/24 12:00 Temperature Temperature Source Pulse Rate 97 H Pulse Rhythm Respiratory Rate 15 Respiratory Effort / Characteristics Respiratory Depth Respiratory Pattern Blood Pressure 143/77 H Blood Pressure Mean 99 Pulse Oximetry 94 Oxygen Delivery Method Sepsis Recent Fever Within 48 Hours Sepsis New/Unexplained Change in Mental Status Sepsis Action Taken by Nursing Laboratory Data 12/04/24 11:15 12/04/24 11:15 Lab Results 12/04/24 Range/Units 11:15 WBC 8.34 (4.8-10.8) K/ul RBC 4.07 L (4.20-5.40) M/uL Hgb 12.5 (12.0-16.0) g/dl Hct 36.4 L (37.0-47.0) % MCV 89.4 (80.0-100.0) fL MCH 30.7 (25.0-34.0) pg MCHC 34.3 (32.0-36.0) g/dL RDW Std Deviation 39.6 (36.4-46.3) fL RDW Coeff of Oksana 11.9 (11.5-14.5) % Plt Count 240 (130-400) K/uL MPV 10.3 (9.4-12.4) fL Immature Gran % (Auto) 0.4 % Neut % (Auto) 71.7 % Lymph % (Auto) 16.7 % [place] % (Auto) 10.7 % Eos % (Auto) 0.1 % Baso % (Auto) 0.4 % Neut # (Auto) 5.99 (1.40-6.50) K/uL Lymph # (Auto) 1.39 (1.20-3.40) K/uL [place] # (Auto) 0.89 H (0.11-0.59) K/uL Eos # (Auto) 0.01 (0.00-0.50) K/uL Baso # (Auto) 0.03 (0.00-0.20) K/uL Immature Gran # (Auto) 0.03 (0.01-0.20) K/uL Sodium 135 L (136-145) mmol/L Potassium 3.8 (3.5-5.1) mmol/L Chloride 101 (98-107) mmol/L Carbon Dioxide 26 (21-32) mmol/L Anion Gap 8 (3-11) BUN 10 (6-23) mg/dl Creatinine 0.62 (0.6-1.2) mg/dl Est Cr Clr Drug Dosing 75.1 ml/min eGFR 92.24 BUN/Creatinine Ratio 16.1 (10-20) Glucose 212 H (70-99(Fasting)) mg/dl Calcium 9.3 (8.6-10.3) mg/dl Total Bilirubin 0.8 (0.2-1.0) mg/dl AST 32 (13-39) U/L ALT 29 (7-52) U/L Alkaline Phosphatase 37 (34-104) U/L Troponin I High Sens 18.9 H (0-14) pg/ml Total Protein 6.8 (6.0-8.3) gm/dl Albumin 3.9 (3.4-5.0) gm/dl Globulin 2.9 (2.5-4.0) gm/dl Albumin/Globulin Ratio 1.3 (0.9-2) Lipase 19 (11-82) U/L Administered Medications Discontinued Medications Sodium Chloride (Nss) 1,000 mls @ 999 mls/hr IV .Q1H1M ONE Stop: 12/04/24 12:41 Last Infusion: 12/04/24 13:22 Dose: Infused Documented By: Admin: 12/04/24 11:59 Dose: 999 mls/hr Documented By: ROHITH Imaging Data Radiologist's Impression: Chest X-Ray 12/04/24 11:03 XR chest 1V portable CLINICAL HISTORY: fall COMPARISON STUDY: 11/14/2024 FINDINGS: Heart size and pulmonary vasculature are normal. No effusion, consolidation, or pneumothorax. No grossly displaced rib fracture seen. IMPRESSION: No acute findings. ACT 112: Negative or not required by law. Electronically signed by: Jeromy Sandoval M.D. 12/04/2024 12:[address] 12/04/24 11:03 CT SCAN OF THE BRAIN WITHOUT IV CONTRAST CLINICAL HISTORY: Fall. COMPARISON STUDY: Head CT December 07, 2022. TECHNIQUE: Unenhanced axial CT scan of the brain was performed from the vertex to the skull base. A dose lowering technique was utilized adhering to the principles of ALARA. CT DOSE: 703.85 mGy.cm FINDINGS: Brain parenchyma: No acute intracranial hemorrhage, midline shift or mass effect is present. Hanson-white matter differentiation is preserved. There are no extra- axial fluid collections. There are no findings to suggest acute dural sinus thrombosis or acute territorial infarct. Ventricles, sulci, cisterns: There is no hydrocephalus. The basal cisterns are patent. Calvarium: There are no calvarial fractures. Sinuses and mastoids: Small left mastoid effusion is unchanged since prior CT. This is likely chronic. There is mild ethmoid sinus mucosal thickening. Orbits: The bony orbits are grossly intact. IMPRESSION: 1. No acute intracranial findings. 2. No calvarial fractures. ACT 112: Negative or not required by law. Electronically signed by: Jose Manzo M.D. 12/04/2024 11:58 AM Hip/Pelvis X-Ray 12/04/24 11:03 XR hip LT 2V w pelvis CLINICAL HISTORY: fall post op COMPARISON: 12/01/2024 FINDINGS: Bilateral hip prostheses show no hardware complication. There is expected soft tissue gas and skin latoya on the left. No fracture or dislocation seen. IMPRESSION: No acute findings seen. ACT 112: Negative or not required by law. Electronically signed by: Jeromy Sandoval M.D. 12/04/2024 12:31 PM Shoulder X-Ray 12/04/24 11:03 XR shoulder LT min 2V routine CLINICAL HISTORY: l shoulder pain COMPARISON: None FINDINGS: No fracture or dislocation. There are mild degenerative changes. IMPRESSION: No fracture seen. ACT 112: Negative or not required by law. Electronically signed by: Jeromy Sandoval M.D. 12/04/2024 12:36 PM Discharge Plan Visit Data Chief Complaint: Fall Stated Complaint: FALL, SHOULDER PAIN, HIP PAIN ED Provider: Jaden Tolentino Discharge Problem: Weakness, Fall, Contusion of left shoulder, Acute hip pain Patient Disposition: Admitted As Inpatient Condition: Fair Forms Stand Alone Forms: [facility], Important Visit Information Prescriptions Prescriptions: No Action nitroglycerin 0.4 mg tablet, sublingual 0.4 mg SL Q5M PRN (Reason: chest pain) Qty: 30 0RF Rx Instructions: do not exceed 3 doses per episode metoprolol succinate [Toprol XL] 100 mg tablet extended release 24 hr 100 mg PO HS Qty: 90 3RF (DME) FreeStyle [place] 2 [place] Misc See Rx Instructions .Route Qty: 1 0RF Rx Instructions: Use to monitor blood sugars daily (DME) FreeStyle [place] 2 Sensor Kit See Rx Instructions .ROUTE .MEDSUPPLY Qty: 2 5RF Rx Instructions: Change every 14 days nystatin-triamcinolone 100,000-0.1 unit/gram-% ointment 1 applic TOP TID PRN (Reason: Skin Irritation) Qty: 15 0RF Rx Instructions: Apply three times daily to affected area(s) in perineum. tirzepatide 10 mg/0.5 mL pen injector 10 mg subcut .weekly Qty: 2 5RF diclofenac sodium 1 % gel 4 g TOP QID PRN (Reason: joint pain) Rx Instructions: apply to single knee, ankle, foot; for foot includes sole/toes/top of foot ibuprofen 200 mg tablet 200 mg PO Q6H PRN (Reason: Pain) amoxicillin 500 mg capsule 2,000 mg PO UD PRN (Reason: BEFORE DENTAL PROCEDURE) Qty: 4 0RF (DME) Contour Next Test Strips Strip See Rx Instructions .ROUTE .MEDSUPPLY Rx Instructions: tests 1 times daily (DME) lancets [BD Ultra Fine Lancets] 33 gauge misc See Rx Instructions .ROUTE .MEDSUPPLY Qty: 100 Rx Instructions: periodically gabapentin 600 mg tablet 600 mg PO TID Qty: 270 3RF lisinopril 10 mg tablet 10 mg PO DAILY acetaminophen [Tylenol Extra Strength] 500 mg Tablet 500 mg PO Q6H PRN (Reason: Pain) Centrum 18-400 mg-mcg Tablet 1 tab PO QAM melatonin 5 mg Tablet 5 mg PO HS PRN (Reason: Sleep) metformin 1,000 mg tablet 1,000 mg PO BID acyclovir 200 mg capsule 200 mg PO BID Rx Instructions: Can take up to 5 pills (100mg) if in outbreak. rosuvastatin 20 mg tablet 20 mg PO HS escitalopram oxalate 5 mg tablet 5 mg PO HS oxycodone 5 mg tablet 5 mg PO Q6H PRN (Reason: pain) Qty: 30 0RF aspirin 81 mg tablet,delayed release (DR/EC) 81 mg PO BID 42 Days Qty: 0 0RF cefadroxil 500 mg capsule 500 mg PO BID 10 Days Qty: 20 0RF vitamin [id number] acid 0.5-1 mg Tablet 1 tab PO DAILY cholecalciferol (vitamin D3) 100 mcg (4,000 unit) Capsule 2,000 unit PO DAILY Referrals Referrals: Luke Alonzo DO [Primary Care Provider] - Discharge Problem: Fall Qualifiers: Encounter type: initial encounter Qualified Code(s): W19.XXXA - Unspecified fall, initial encounter Contusion of left shoulder Qualifiers: Encounter type: initial encounter Qualified Code(s): S40.012A - Contusion of left shoulder, initial encounter Acute hip pain Qualifiers: Laterality: left Qualified Code(s): M25.552 - Pain in left hip
[2024-12-04 11:44] LABS: Basophils # (auto) 0.03 K/uL (0.00-0.20); Basophils % (auto) 0.4 %; Eosinophils # (auto) 0.01 K/uL (0.00-0.50); Eosinophils % (auto) 0.1 %; Hematocrit (blood only) 36.4 % (37.0-47.0); Hemoglobin 12.5 g/dl (12.0-16.0); Immature Granulocytes # (auto) 0.03 K/uL (0.01-0.20); Immature Granulocytes % (auto) 0.4 %; Lymphocytes # (auto) 1.39 K/uL (1.20-3.40); Lymphocytes % (auto) 16.7 %; Mean Corpuscular Hemoglobin 30.7 pg (25.0-34.0); Mean Corpuscular Hgb Conc 34.3 g/dL (32.0-36.0); Mean Corpuscular Volume 89.4 fL (80.0-100.0); Mean Platelet Volume 10.3 fL (9.4-12.4); Monocytes # (auto) 0.89 K/uL (0.11-0.59); Monocytes % (auto) 10.7 %; Neutrophils # (auto) 5.99 K/uL (1.40-6.50); Neutrophils % (auto) 71.7 %; Platelet Count 240 K/uL (130-400); RDW Coefficient of Variation 11.9 % (11.5-14.5); RDW Standard Deviation 39.6 fL (36.4-46.3); Red Blood Count 4.07 M/uL (4.20-5.40); White Blood Count 8.34 K/ul (4.8-10.8)
[2024-12-04] MEDS: SODIUM CHLORIDE 0.9% 1,000 ML IV ONE (11:59)
--- NOTE | 2024-12-04 12:00 | CT Scan Report ---
CT SCAN OF THE BRAIN WITHOUT IV CONTRAST CLINICAL HISTORY: Fall. COMPARISON STUDY: Head CT December 07, 2022. TECHNIQUE: Unenhanced axial CT scan of the brain was performed from the vertex to the skull base. A dose lowering technique was utilized adhering to the principles of ALARA. CT DOSE: 703.85 mGy.cm FINDINGS: Brain parenchyma: No acute intracranial hemorrhage, midline shift or mass effect is present. Hanson-whi te matter differentiation is preserved. There are no extra-axial fluid collections. There are no find ings to suggest acute dural sinus thrombosis or acute territorial infarct. Ventricles, sulci, cisterns: There is no hydrocephalus. The basal cisterns are patent. Calvarium: There are no calvarial fractures. Sinuses and mastoids: Small left mastoid effusion is unchanged since prior CT. This is likely chronic . There is mild ethmoid sinus mucosal thickening. Orbits: The bony orbits are grossly intact. IMPRESSION: 1. No acute intracranial findings. 2. No calvarial fractures. ACT 112: Negative or not required by law. Electronically signed by: Jose Manzo M.D. 12/04/2024 11:58 AM
[2024-12-04 12:10] LABS: Albumin Globulin Ratio 1.3 (0.9-2); Albumin Level 3.9 gm/dl (3.4-5.0); BUN Creatinine Ratio 16.1 (10-20); Bilirubin,Total 0.8 mg/dl (0.2-1.0); Calcium 9.3 mg/dl (8.6-10.3); Creatinine Clr Calc Pharmacy 75.1 ml/min; Globulin 2.9 gm/dl (2.5-4.0); Potassium 3.8 mmol/L (3.5-5.1); Total Protein 6.8 gm/dl (6.0-8.3)
[2024-12-04 12:16] LABS: Troponin I High Sensitivity 18.9 pg/ml (0-14)
--- NOTE | 2024-12-04 12:31 | XRay Report ---
XR chest 1V portable CLINICAL HISTORY: fall COMPARISON STUDY: 11/14/2024 FINDINGS: Heart size and pulmonary vasculature are normal. No effusion, consolidation, or pneumothora x. No grossly displaced rib fracture seen. IMPRESSION: No acute findings. ACT 112: Negative or not required by law. Electronically signed by: Jeromy Sandoval M.D. 12/04/2024 12:30 PM
--- NOTE | 2024-12-04 12:33 | XRay Report ---
XR hip LT 2V w pelvis CLINICAL HISTORY: fall post op COMPARISON: 12/01/2024 FINDINGS: Bilateral hip prostheses show no hardware complication. There is expected soft tissue gas and skin latoya on the left. No fracture or dislocation seen. IMPRESSION: No acute findings seen. ACT 112: Negative or not required by law. Electronically signed by: Jeromy Sandoval M.D. 12/04/2024 12:31 PM
--- NOTE | 2024-12-04 12:37 | XRay Report ---
XR shoulder LT min 2V routine CLINICAL HISTORY: l shoulder pain COMPARISON: None FINDINGS: No fracture or dislocation. There are mild degenerative changes. IMPRESSION: No fracture seen. ACT 112: Negative or not required by law. Electronically signed by: Jeromy Sandoval M.D. 12/04/2024 12:36 PM
--- NOTE | 2024-12-04 13:10 | History & Physical Report ---
Date of Service December 04, 2024 Assessment & Plan (1) Acute hip pain: (2) Elevated troponin: (3) Constipation: Plan #Acute hip pain after fall, s/p L hip arthroplasty -Fall last night s/p L hip arthroplasty on 12/01 -Continue oxycodone 5mg PO q6H PRN for pain management -12/[address] wo con, shoulder XR, hip/pelvis XR, chest XR showed no acute findings or fractures #Elevated troponin in absence of acute coronary syndrome -12/04 troponin 18.9 --> 21.4 -12/04 EKG shows sinus tachycardia with frequent, consecutive PVCs -Ordered HS troponin w/ AM labs #Constipation -Consider Miralax (d/t opioid pain med use) Chronic conditions T2DM Continue metform 1,000mg PO BID Arteriosclerotic CAD Continue ASA 81mg HTN, dyslipidemia Continue rosuvastatin 20 mg PO HS, lisinopril 10 mg PO daily Depression Continue escitaloprogram oxalate 5 mg PO HS Diabetic peripheral neuropathy Continue gabapentin 600 mg PO TID History of Present Illness Chief Complaint: Left arm, hip and left pain after fall yesterday Primary Care Provider: Luke Alonzo DO Patient is a 74 yo F w/ s/p Left Anterior Total Hip Arthroplasty 3 days ago with PMHx of left patellar fracture, 2 falls in the past few months, s/p [place] (2019), T2DM, CAD, who presents to the ED today after falling on her left side last night. She was walking into the kitchen to get food for her dogs when the fridge door, her dogs, and the walker collided and caused her to fall. Patient notes it took her half hour to get back up, denies hitting her head, denies LOC, and continued to have pain of l. shoulder, l hip, and l. leg. She noticed some blood pooled in the bandage of the incision site after falling. She felt a "sharp heat" running down her leg after her fall but none currently. She felt some tenderness at her rib cage last night but none today. She denies any warmth, redness, purulent drainage at the incision site. She denies on bleeding or bruising elsewhere in her extremities. Patient's sister was at bedside and denied observed facial drooping or dysarthria. Patient states she has some balance issues at baseline that she is being worked up for outpatient and tries to use her rolling walker to walk when outside her home. Patient has been taking oxycontin daily since her surgery on Wednesday and took 500 mg Tylenol this morning. Pain is presently well-controlled and L hip and shoulder exacerbated only with movement. Patient denies fever, chills, any new onset vision disturbances, dyspnea, chest pain, stomach pain. Patient denies any blood in stool, urine, and tingling or numbness in the extremities. She hasn't had a bowel movement in a few days. She reports her blood sugar has been in the 200-300s recently even before pausing her diabetes medications a week before her surgery. Allergies Allergy/AdvReac Type Severity Reaction Status Date / Time latex Allergy Severe severe Verified 12/01/24 09:31 skin irritation gluten AdvReac Intermediate "sleepiness Verified 12/01/24 09:31 " mirtazapine AdvReac Mild weight gain Verified 12/01/24 09:31 Home Medications Medication Instructions Recorded Confirmed Type acetaminophen 500 mg tablet 500 mg PO Q6H PRN Pain 04/05/18 12/04/24 History (Tylenol Extra Strength) diclofenac sodium 1 % topical gel 4 g topical QID PRN joint pain 10/07/20 12/04/24 History lancets 33 gauge (BD Ultra Fine #100 ea 10/21/20 12/01/24 History Lancets) multivitamin-ferrous 1 tab PO QAM 02/17/21 12/04/24 History fumarate-folic acid 18 mg-400 mcg tablet (Centrum) blood sugar diagnostic (Contour 12/31/21 12/01/24 History Next Test Strips) amoxicillin 500 mg capsule 2,000 mg (4 x 500 mg) PO UD PRN 05/21/23 12/04/24 Rx BEFORE DENTAL PROCEDURE #4 caps ibuprofen 200 mg tablet 200 mg PO Q6H PRN Pain 05/21/23 12/04/24 History gabapentin 600 mg tablet 600 mg PO TID #270 tabs 03/08/24 12/04/24 Rx vitamin B12 0.5 mg-folic acid 1 mg 1 tab PO DAILY 03/30/24 12/04/24 History tablet nitroglycerin 0.4 mg sublingual 0.4 mg sublingual Q5M PRN chest 05/17/24 12/04/24 Rx tablet pain #30 tabs metoprolol succinate 100 mg 100 mg PO HS #90 tabs 06/13/24 12/04/24 Rx tablet,extended release 24 hr (Toprol XL) FreeStyle [place] 2 [place] (flash #1 ea 07/31/24 12/01/24 Rx glucose scanning reader) flash glucose sensor (FreeStyle #2 ea 07/31/24 12/01/24 Rx Mercedez 2 Sensor kit) nystatin-triamcinolone 100,000 1 applic topical TID PRN Skin 09/05/24 12/04/24 Rx unit/gram-0.1 % topical ointment Irritation #15 grams acyclovir 200 mg capsule 200 mg PO BID 11/08/24 12/04/24 History escitalopram oxalate 5 mg tablet 5 mg PO HS 11/08/24 12/04/24 History melatonin 5 mg tablet 5 mg PO HS PRN Sleep 11/08/24 12/04/24 History metformin 1,000 mg tablet 1,000 mg PO BID 11/08/24 12/04/24 History rosuvastatin 20 mg tablet 20 mg PO HS 11/08/24 12/04/24 History lisinopril 10 mg tablet 10 mg PO DAILY 11/20/24 12/04/24 History aspirin 81 mg tablet,delayed 81 mg PO BID 42 days #0 tabs 12/01/24 12/04/24 Rx release cefadroxil 500 mg capsule 500 mg PO BID 10 days #20 caps 12/01/24 12/04/24 Rx oxycodone 5 mg tablet 5 mg PO Q6H PRN pain #30 tabs 12/01/24 12/04/24 Rx cholecalciferol (vitamin D3) 50 50 mcg PO DAILY 12/04/24 12/04/24 History mcg (2,000 unit) tablet (Vitamin D3) tirzepatide 10 mg/0.5 mL 10 mg subcut WK 12/04/24 12/04/24 History subcutaneous pen injector Past Med/Surg History Problem List (Updated 12/04/24 @ 14:05 by Taylor Reis) Constipation (Acute) Elevated troponin (Acute) Acute hip pain (Acute) Contusion of left shoulder (Acute) Fall (Acute) Weakness (Acute) Status post left hip replacement (~11/2024) Encounter for pre-operative examination Hepatic steatosis Neg Ct 12/2022 Sensorineural hearing loss, bilateral Memory impairment Osteoarthritis of left hip Urinary urgency Insomnia MDD (major depressive disorder), recurrent episode, mild Urinary frequency Microscopic hematuria Non-proliferative diabetic retinopathy Mixed stress and urge incontinence Balance disorder Osteoarthritis of right knee Hypertension (Chronic) Arteriosclerotic coronary artery disease (Chronic) Dyslipidemia GERD (gastroesophageal reflux disease) Diabetes mellitus, type 2 (Chronic) Restless leg syndrome (Acute) Sleep apnea (Chronic) oral appliance Medical History CAD (coronary artery disease) 2019- s/p stent to mRCA, residual severe small diagonal disease Carotid artery plaque <50% stenosis to right and left ICA per 10/2023 carotid duplex Coccyx pain Mild/improving from fall in 09/2024- no fracture per patient Depression Diabetic retinopathy DM type 2 (diabetes mellitus, type 2) Dyslipidemia Genital herpes simplex no current outbreak, takes Valtrex for maintenance Gout no recent flares Hx of non-ST elevation myocardial infarction (NSTEMI) (2018) HX: breast cancer "Abnormal left breast mammogram 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 Status post lumpectomy and sentinel lymph node biopsy 04/23/2014 revealing s/p XRT ; no chemo Hypertension Insomnia Lumbar radiculopathy Memory impairment "forgetful" Mild per neuro visit 09/2024- discussed addressing sleep issues and to exercise after VINICIO (follow up PRN) Mixed stress and urge incontinence Osteoarthritis Peripheral neuropathy Restless leg syndrome Rosacea Sleep apnea no cpap Trigger finger, acquired Unsteady gait - Ongoing for several years- had EMGs- neuropathy to legs vs nerve damage from previous knee surgery - Continues with balance issues after stopping Amlopidpine Surgical History H/O breast biopsy (2013) left History of arthroscopy right knee x 2 History of cardiac cath (2018) [facility] [place], 1 stent, follows with cardio Dr. Brock History of cataract surgery b/l History of colonoscopy History of dilation and curettage History of hip replacement (05/2018) right History of hysterectomy unsure of this History of tonsillectomy age 17 History of total knee replacement left knee x 2 Hx of cystoscopy Hx of heart artery stent (2019) [place], 1 stent, follows with cardio Dr. Brock Hx of lumpectomy (04/23/14) left Hx of oral surgery gum surgery Hx of toe surgery Hx of wisdom tooth extraction Family History Family/Other Family history of diabetes mellitus Sister Chronic liver disease Mother Bone cancer Breast cancer Cancer Family/Other Diabetes Cardiac disorder Father Stroke Grandmother (Maternal) Lung cancer Other Family history of heart attack No family history of adverse response to anesthesia Denies family history of Ovarian cancer Prostate cancer Colorectal cancer Social History Smoking Status: Never smoker Second Hand Exposure: No; Do You Dip or Chew Tobacco: No; Hx Alcohol Use: No Hx Substance Use: No Preferred Language: Arabic Communication Ability: Effective Communication Ability Comment: "forgetful" - alert and oriented x3. Visual Impairment: Limited Hearing Ability: Normal Property Preservation Specialist Required: No Beliefs That Will Affect Care: None marital status: Single Current Living Situation: Alone current occupational status: retired current occupation: retired Feels Safe at Home: Yes Childhood Exposure to Second-Hand Smoke: Yes (dad smoked at times/siblings smoked) Diet: low carbohydrate, low salt and regular Diet Comment: tries to avoid gluten and carbs for diabetes. caffeine: Yes (3 cups in the morning and 1 cup of tea in afternoon. ) Dental Care, Regularly: Yes Physical Activity Frequency: Does not Exercise Physical Activity Frequency Comment: walks her dog Seatbelt Use: always Sunscreen Use: No Do you think of yourself as: straight/heterosexual Gender Identity: Female Assistive Devices: Walker Review of Systems Constitutional: as per Subjective / HPI and + weight loss Eyes: as per Subjective / HPI Ear, Nose, Mouth, Throat: as per Subjective / HPI Respiratory: as per Subjective / HPI Cardiovascular: as per Subjective / HPI Gastrointestinal: as per Subjective / HPI and + constipation Genitourinary: as per Subjective / HPI Musculoskeletal: + limited range of motion Integumentary: as per Subjective / HPI Neurologic: + unsteadiness and + falls Psychiatric: as per Subjective / HPI Physical Exam Physical Exam: Patient lying comfortably in bed, no acute distress Constitutional: well developed, well nourished and comfortable Eyes: PERRL, conjunctivae normal, anicteric sclerae ENMT: external ear and nose normal, oropharynx normal Respiratory: normal respiratory effort, lungs clear to auscultation Cardiovascular: RRR, no murmur, no edema Gastrointestinal (Abdomen): normal bowel sounds, soft, nontender, no hepato splenomegaly Musculoskeletal: Head/Neck/Chest: normocephalic, head atraumatic and neck supple Extremities: + limited ROM of upper extremity Left and + limited ROM of lower extremity Left Hip: + surgical incision (latoya on incision with no blood or drainage, erythema, warm, or swelling) L hip and thigh tender to palpation Skin: Trauma: + contusion (below site of L hip incision) Neurologic: PERRL, EOMI, accommodation nl, no face palsy, no dysarthria Results & Data Results & Data Vital Signs (Past 12 Hours) Vital Signs Temp Pulse Resp BP Pulse Ox O2 Del Method 12/04/24 12:00 97 H 15 143/77 H 94 12/04/24 11:25 130 H 12/04/24 11:10 135 H 16 97 Room Air 12/04/24 10:50 37.1 C 135 H 16 152/94 H 97 Room Air Supervising Physician Co-Signing Physician Notes I personally examined the patient and verified all hinojosa points of history and exam, discussed case, and agree with decision making with Dr Singleton, and Zane Reis MS2 Fell. Hip and shoulder pain. Feeling very weak. Notes that if she was at home she would basically stay safe by not getting out of bed. Vitals noted, in general she is awake and alert pleasant no distress. HEENT normocephalic atraumatic mucous membranes moist. No bony tenderness of shoulder, no groin pain on internal rotation of left hip, she does have anterior and lateral thigh pain. Mild degree of bruising, incision clean dry and intact fall/weaknessappears to have significant weakness and ambulatory dysfunctionPT/OT eval and treat, anticipate need for rehab. She is amenable. Hip and shoulder painx-rays negative, exam reassuring that there is no occult fracture. Obviously follow serially and imaging more detail if necessary DVT prophylaxisLovenox otherwise as above (1) Acute hip pain Laterality: left Qualified Code(s): M25.552 - Pain in left hip
--- NOTE | 2024-12-04 14:54 | Billing Data ---
Date of Service December 04, 2024 Coding Level of Care Code 35553 INT INP/OBS CARE
[2024-12-04] MEDS: ONDANSETRON INJ 2 MG/ML 2 ML VIAL IV STA (15:46)
[2024-12-04] MEDS: MoRPHine SULFATE 2 MG/ML CARP IV PRN (15:46)
[2024-12-04] MEDS ORDERED: NON-FORMULARY MEDICATION (Flash Glucose Scanning Reader [Freestyle Libre 2 Reader] misc) SCH (17:44)
[2024-12-04] MEDS ORDERED: MAGNESIUM HYDROXIDE SUSP 30 ML UDC PO PRN (17:44)
[2024-12-04] MEDS ORDERED: ALUMINUM/MAGNESIUM SUSP 30 ML UDC PO PRN (17:44)
[2024-12-04] MEDS ORDERED: ONDANSETRON INJ 2 MG/ML 2 ML VIAL IV PRN (17:44)
[2024-12-04] MEDS ORDERED: NYSTATIN/TRIAMCIN OINT 15 GM TUBE EXT PRN (17:44)
[2024-12-04] MEDS ORDERED: NON-FORMULARY MEDICATION (Flash Glucose Sensor [Freestyle Libre 2 Sensor] kit) SCH (17:44)
[2024-12-04] MEDS ORDERED: IBUPROFEN 200 MG TAB PO PRN (17:44)
[2024-12-04] MEDS ORDERED: NITROGLYCERIN SL 0.4 MG/TAB TAB SL PRN (17:44)
[2024-12-04] MEDS ORDERED: POLYETHYLENE (MIRALAX) 17 GM PACK PO PRN (17:44)
[2024-12-04] MEDS ORDERED: MELATONIN 3 MG TAB PO PRN (17:54)
[2024-12-04] MEDS: ENOXAPARIN INJ 40 MG/0.4 ML SYR SQ SCH (18:41)
[2024-12-04] MEDS: cefaDROXiL 500 MG CAP PO SCH (20:56)
[2024-12-04] MEDS: ESCITALOPRAM OXALATE 10 MG TAB PO SCH (20:57)
[2024-12-04] MEDS: ASPIRIN 81 MG ECTAB PO SCH (20:57)
[2024-12-04] MEDS: GABAPENTIN 600 MG TAB PO SCH (20:57)
[2024-12-04] MEDS: METOPROLOL SUCC 50MG EXT REL TAB PO SCH (20:58)
[2024-12-04] MEDS: ROSUVASTATIN CALCIUM 20 MG TAB PO SCH (20:58)
[2024-12-04] MEDS: oxyCODONE HCL IR 5 MG TAB (IMMEDIATE RELEASE) PO PRN (21:05)
[2024-12-04] MEDS: ACETAMINOPHEN 500 MG TAB PO PRN (22:07)
--- NOTE | 2024-12-05 05:00 | Electrocardiogram Report ---
Test Reason : Blood Pressure : */* mmHG Vent. Rate : 128 BPM Atrial Rate : 128 BPM P-R Int : 164 ms QRS Dur : 80 ms QT Int : 280 ms P-R-T Axes : 41 40 48 degrees QTcB Int : 408 ms Poor data quality, interpretation may be adversely affected Sinus tachycardia with frequent Premature ventricular complexes and Fusion complexes Cannot rule out Anterior infarct , age undetermined Abnormal ECG When compared with ECG of 14-Nov-2024 11:25, Fusion complexes are now Present Confirmed by Jovany Fitzpatrick ([id number]) on 12/05/2024 4:59:50 AM Referred By: REFERRED SELF Confirmed By: Jovany Fitzpatrick
--- NOTE | 2024-12-05 06:58 | Hospitalist Progress Note ---
Date of Service December 05, 2024 Assessment & Plan (1) Acute hip pain: (2) Elevated troponin: (3) Constipation: Plan #Acute hip pain after fall, s/p L hip arthroplasty -Fall on 12/03 night s/p L hip arthroplasty on 12/01 -Continue oxycodone 5mg PO q6H PRN for pain management -12/[address] w/o con, shoulder XR, hip/pelvis XR, chest XR showed no acute findings or fractures -PT consulted for eval and treatment, recommending acute rehab. Patient amenable to rehab #Elevated troponin in absence of acute coronary syndrome -12/04 troponin 18.9 --> 21.4 --> 15.6 -12/04 EKG shows sinus tachycardia with frequent, consecutive PVCs -Ordered HS troponin w/ AM labs #Constipation -Consider Miralax (d/t opioid pain med use) #Asymptomatic hypertension -Likely reactive d/t pain -No reported blurred vision, headache, focal neuro deficit, chest pain, SOB -Continue home meds Chronic conditions T2DM Continue metform 1,000mg PO BID Arteriosclerotic CAD Continue ASA 81mg HTN, dyslipidemia Continue rosuvastatin 20 mg PO HS, lisinopril 10 mg PO daily Depression Continue escitaloprogram oxalate 5 mg PO HS Diabetic peripheral neuropathy Continue gabapentin 600 mg PO TID Code status: Full code Disposition: Med-Surg tele FENGI: Carb consistent T2DM diet VTE prophylaxis: Lovenox, subQ, 40 mg, daily Admission and Anticipated Discharge Date Admission Date: December 04, 2024 Supervising Physician Co-Signing Physician Notes I personally examined the patient and verified all hinojosa points of history and exam, discussed case, and agree with decision making with Dr Singleton, and Zane Ramey Sleeping and appearing comfortable at the time of my evaluation. Given stability on review by resident physician as well as medical student, stability on chart review, and essentially just pending rehaballowed patient to rest. Vitals noted, in general she is resting comfortably in no distress. Breathing unlabored no accessory muscle use. Skin without rashes pallor or icterus. fall/weaknessappears to have significant weakness and ambulatory dysfunctionPT/OT eval and treat, anticipate need for rehab. She is amenable. Referrals pending Hip and shoulder painx-rays negative, exam reassuring that there is no occult fracture. Obviously follow serially and imaging more detail if necessary, but does not appear that this will need to be the case DVT prophylaxisLovenox otherwise as above Subjective Patient was seen and evaluated this morning. Patient endorses decreased pain this morning of the left UE and left hip, but did note a brief episode of aching pain of her r. foot this morning that was well-controlled with Tylenol. Besides that patient is doing well, AAO x4. Rates left hip/leg pain 6/10 on exertion. No headache, chest pressure/tightness, dysuria, constipation (though hasn't had a bowel movement since surgery on Wed), LE swelling/warmth. Review of Systems Constitutional: no fever and no chills Physical Exam Constitutional: WD/WN, vitals as above Eyes: PERRL, conjunctivae normal, anicteric sclerae Respiratory: normal respiratory effort, lungs clear to auscultation Cardiovascular: Skipped beats, normal S1, S2, no murmurs, rubs Gastrointestinal (Abdomen): normal bowel sounds, soft, nontender, no hepatosplenomegaly Skin: no rashes, warm and dry L. hip incision with latoya open to air. Clean, dry, no drainage, warmth, swelling. L thigh tender to palpation. Some bruising around incision site. Neurologic: PERRL, EOMI, accommodation nl, no face palsy, no dysarthria Psychiatric: A+Ox3, euthymic affect Results & Data Results & Data Vital Signs (Past 12 Hours) Vital Signs Temp Pulse Resp BP BP Pulse Ox O2 Del Method 12/04/24 19:15 36.9 C 94 H 16 154/71 H 158/72 H 95 Room Air (1) Acute hip pain Laterality: left Qualified Code(s): M25.552 - Pain in left hip
[2024-12-05 07:48] LABS: Hematocrit (blood only) 33.5 % (37.0-47.0); Hemoglobin 11.2 g/dl (12.0-16.0); Mean Corpuscular Hemoglobin 30.9 pg (25.0-34.0); Mean Corpuscular Hgb Conc 33.4 g/dL (32.0-36.0); Mean Corpuscular Volume 92.3 fL (80.0-100.0); Platelet Count 232 K/uL (130-400); RDW Coefficient of Variation 11.9 % (11.5-14.5); RDW Standard Deviation 40.8 fL (36.4-46.3); Red Blood Count 3.63 M/uL (4.20-5.40); White Blood Count 6.98 K/ul (4.8-10.8)
[2024-12-05 08:05] LABS: BUN Creatinine Ratio 15.7 (10-20); Calcium 8.6 mg/dl (8.6-10.3); Creatinine Clr Calc Pharmacy 66.5 ml/min; Potassium 4.3 mmol/L (3.5-5.1)
[2024-12-05] MEDS: lisinopril 10 MG TAB PO SCH (08:05)
[2024-12-05] MEDS: CEROVITE ADV FORMULA TAB PO SCH (08:05)
[2024-12-05] MEDS: CYANOCOBALAMIN (B-12) 500 MCG TABLET PO SCH (08:05)
[2024-12-05] MEDS: CHOLECALCIFEROL 25 MCG (1000 UNITS) TAB PO SCH (08:05)
[2024-12-05] MEDS: FOLIC ACID 400 MCG TAB PO SCH (08:05)
[2024-12-05] MEDS: metFORMIN HCL 500 MG TAB PO SCH (08:05)
[2024-12-05 08:12] LABS: Troponin I High Sensitivity 15.6 pg/ml (0-14)
[2024-12-05] MEDS ORDERED: lisinopril 10 MG TAB PO SCH (09:00)
[2024-12-05 10:17] LABS: Estimated Average Glucose 177 mg/dl; Hemoglobin A1C 7.8 % (4.5-5.6)
--- NOTE | 2024-12-05 13:01 | Billing Data ---
Date of Service December 05, 2024 Coding Level of Care Code 40584 SUB INP/OBS CARE
--- NOTE | 2024-12-06 07:33 | Hospitalist Progress Note ---
Date of Service December 06, 2024 Assessment & Plan (1) Acute hip pain: (2) Elevated troponin: (3) Constipation: Plan 1) Acute hip pain after fall, s/p L hip arthroplasty -Fall on 12/03 night s/p L hip arthroplasty on 12/01 -Continue oxycodone 5mg PO q6H PRN for pain management -12/[address] w/o con, shoulder XR, hip/pelvis XR, chest XR showed no acute findings or fractures -12/05 PT/OT evaluated and recommended d/c to skilled rehab 2) Elevated troponin in absence of acute coronary syndrome #resolved -12/04 troponin 18.9 --> 21.4 --> 15.6 -12/04 EKG shows sinus tachycardia with frequent, consecutive PVCs 3) Constipation -Consider Miralax (d/t opioid pain med use) 4) Asymptomatic hypertension -Likely reactive d/t pain -No reported blurred vision, headache, focal neuro deficit, chest pain, SOB -Continue home meds 5) Disposition upon discharge - Case mgmt has reached out to [facility] and/or [facility] --> despite P2P, patient was denied - Patient stated she's amenable to receiving Home Health Services upon d/c Chronic conditions T2DM Continue metform 1,000mg PO BID Arteriosclerotic CAD Continue ASA 81mg HTN, dyslipidemia Continue rosuvastatin 20 mg PO HS, lisinopril 10 mg PO daily Depression Continue escitaloprogram oxalate 5 mg PO HS Diabetic peripheral neuropathy Continue gabapentin 600 mg PO TID Code status: Full code Disposition: Med-Surg tele FENGI: Carb consistent T2DM diet VTE prophylaxis: Lovenox, subQ, 40 mg, daily Admission and Anticipated Discharge Date Admission Date: December 04, 2024 Momo Rojas was seen and evaluated this morning. She continues to have left leg pain on exertion (8/10 pain) and describes that she has to walk in "slow motion" to endure the pain. She reports marked improvement in right UE ROM. Pain is 1/10 when resting in bed without movement. No recurrence of r. foot ache from yesterday. She met with PT/OT yesterday and was told she would need to be d/c to skilled rehab. She inquired whether her insurance would cover the length of her stay and states that she has Medicare and [employer] insurance. ...... Besides that patient is doing well, AAO x4. No headache, chest pressure/tightness, dysuria, constipation (still hasn't had a bowel movement since surgery on Wed), LE swelling/warmth. Not interested in Miralax at this point-she is worried she won't be able to make it to bathroom in time given her limited ability to ambulate. Review of Systems Constitutional: as per Subjective / HPI; no fever and no chills Physical Exam Physical Exam: Patient lying comfortably in bed, no acute distress Constitutional: WD/WN, vitals as above well developed, well nourished and comfortable Eyes: PERRL, conjunctivae normal, anicteric sclerae ENMT: external ear and nose normal, oropharynx normal Respiratory: normal respiratory effort, lungs clear to auscultation Cardiovascular: RRR, no murmur, no edema Gastrointestinal (Abdomen): normal bowel sounds, soft, nontender, no hepatosplenomegaly Musculoskeletal: Head/Neck/Chest: normocephalic, head atraumatic and neck supple Extremities: + limited ROM of lower extremity Left Hip: + surgical incision (latoya on clean, dry incision with no erythema, warmth, or swelling) Skin: no rashes, warm and dry Neurologic: PERRL, EOMI, accommodation nl, no face palsy, no dysarthria Psychiatric: A+Ox3, euthymic affect Results & Data Results & Data Vital Signs (Past 12 Hours) Vital Signs O2 Del Method 12/05/24 20:48 Room Air (1) Acute hip pain Laterality: left Qualified Code(s): M25.552 - Pain in left hip
[2024-12-06] MEDS ORDERED: ACYCLOVIR 200 MG CAP PO PRN ×2 (14:02→15:00)
[2024-12-06 14:46] VITALS: BP 145/82; PULSE 73; RESP 16; TEMP 97.7; O2SAT 94
--- NOTE | 2024-12-06 15:06 | Discharge Summary ---
Date of Service December 06, 2024 Admission HPI Per Admitting Provider Patient is a 74 yo F w/ s/p Left Anterior Total Hip Arthroplasty 3 days ago with PMHx of left patellar fracture, 2 falls in the past few months, s/p AL (2019), T2DM, CAD, who presents to the ED today after falling on her left side last night. She was walking into the kitchen to get food for her dogs when the fridge door, her dogs, and the walker collided and caused her to fall. Patient notes it took her half hour to get back up, denies hitting her head, denies LOC, and continued to have pain of l. shoulder, l hip, and l. leg. She noticed some blood pooled in the bandage of the incision site after falling. She felt a "sharp heat" running down her leg after her fall but none currently. She felt some tenderness at her rib cage last night but none today. She denies any warmth, redness, purulent drainage at the incision site. She denies on bleeding or bruising elsewhere in her extremities. Patient's sister was at bedside and denied observed facial drooping or dysarthria. Patient states she has some balance issues at baseline that she is being worked up for outpatient and tries to use her rolling walker to walk when outside her home. Patient has been taking oxycontin daily since her surgery on Wednesday and took 500 mg Tylenol this morning. Pain is presently well-controlled and L hip and shoulder exacerbated only with movement. Patient denies fever, chills, any new onset vision disturbances, dyspnea, chest pain, stomach pain. Patient denies any blood in stool, urine, and tingling or numbness in the extremities. She hasn't had a bowel movement in a few days. She reports her blood sugar has been in the 200-300s recently even before pausing her diabetes medications a week before her surgery. Admission Exam Per Admitting Provider Physical Exam: Patient lying comfortably in bed, no acute distress Constitutional: well developed, well nourished and comfortable Eyes: PERRL, conjunctivae normal, anicteric sclerae ENMT: external ear and nose normal, oropharynx normal Respiratory: normal respiratory effort, lungs clear to auscultation Cardiovascular: RRR, no murmur, no edema Gastrointestinal (Abdomen): normal bowel sounds, soft, nontender, no hepatosplenomegaly Musculoskeletal: Head/Neck/Chest: normocephalic, head atraumatic and neck supple Extremities: + limited ROM of upper extremity Left and + limited ROM of lower extremity Left Hip: + surgical incision (latoya on incision with no blood or drainage, erythema, warm, or swelling) L hip and thigh tender to palpation Skin: Trauma: + contusion (below site of L hip incision) Neurologic: PERRL, EOMI, accommodation nl, no face palsy, no dysarthria Principal Diagnosis Left hip and shoulder pain, s/p fall Discharge Exam Constitutional WD/WN, vitals as above Respiratory normal respiratory effort, lungs clear to auscultation Cardiovascular RRR, no murmur, no edema Musculoskeletal Shoulder: + limited ROM (improving) and + joint line tenderness (improving) Hip: + joint line tenderness Psychiatric A+Ox3, euthymic affect Discharge Data Allergies Allergy/AdvReac Type Severity Reaction Status Date / Time latex Allergy Severe severe Verified 12/01/24 09:31 skin irritation gluten AdvReac Intermediate "sleepiness Verified 12/01/24 09:31 " mirtazapine AdvReac Mild weight gain Verified 12/01/24 09:31 Consultations 12/04/24 12:36 ED Decision to Admit Stat Ordered Studies 12/04/24 11:03 CT head/brain wo con Stat Hospital Course (1) Acute hip pain: (2) Elevated troponin: (3) Constipation: Plan 1) Acute hip pain after fall, s/p L hip arthroplasty -Fall on 12/03 night s/p L hip arthroplasty on 12/01 -Continue oxycodone 5mg PO q6H PRN for pain management -12/[address] w/o con, shoulder XR, hip/pelvis XR, chest XR showed no acute findings or fractures -12/05 PT/OT evaluated and recommended d/c to skilled rehab 2) Elevated troponin in absence of acute coronary syndrome #resolved -12/04 troponin 18.9 --> 21.4 --> 15.6 -12/04 EKG shows sinus tachycardia with frequent, consecutive PVCs 3) Constipation -Consider Miralax (d/t opioid pain med use) 4) Asymptomatic hypertension -Likely reactive d/t pain -No reported blurred vision, headache, focal neuro deficit, chest pain, SOB -Continue home meds 5) Disposition upon discharge - Case mgmt has reached out to [facility] and/or [facility] --> despite P2P, patient was denied - Patient stated she's amenable to receiving Home Health Services upon d/c Chronic conditions T2DM Continue metformin 1,000mg PO BID Arteriosclerotic CAD Continue ASA 81mg HTN, dyslipidemia Continue rosuvastatin 20 mg PO HS, lisinopril 10 mg PO daily Depression Continue escitalopram oxalate 5 mg PO HS Diabetic peripheral neuropathy Continue gabapentin 600 mg PO TID Total Time Total Time Spent Total Time Spent (In Minutes): see attending attestation Discharge Plan Discharge Items Patient Disposition: Home - Home Health Services Reason For Visit: AMBULATORY WEAKNESS Discharge Diagnosis: ambulatory weakness, s/p l. hip replacement, recent fall Condition on Discharge: Fair Activity: Resume your previous activity Activity Comment: resume rehab activity as able to Non-emergency contact: Primary Care Provider and Surgeon Call non-emergency contact if: you have any medication questions and your pain is worsening Follow-up/Referrals: Luke Alonzo, [Primary Care Provider] - Diet: Carb Consistent or DM2 Addtl Attending Provider Instructions: You were admitted to the hospital for weakness, s/p fall, w/ l. hip and shoulder pain. You were treated with your home medications and some additional pain meds. A discharge summary will be sent to your primary care physician to ensure contin uity of care. Please bring this discharge summary with you to your next office appointment so that your provider can review it at that time. Follow-up appointments: We have requested a follow-up appointment with your primary care physician within one week of discharge. Please call their office if you do not hear from them. Keep all your follow-up appointments as already scheduled. If you cannot make an appointment, notify your provider. Medications: Your medication list has been reviewed and reconciled upon discharge to ensure accuracy and continuity of care. An updated list of all your medications is included with your hospital discharge paperwork. Please review this list closely, and make note of any changes. Take your medications as instructed; do not skip a dose of your medicines. Make sure all of your doctors know every medicine you are taking (including sror-rwd-ypubusq medicines, vitamins, and supplements). Call your primary care provider before taking any new medicines (including qcja-qpe-ffeybii medicines, vitamins, and supplements), because some of these may interact with your current medications, or may make your symptoms worse. Tell your primary care provider if you cannot afford your medications. CONTACT YOUR PRIMARY CARE PROVIDER if you experience any of the following: recurrent falls, worsening dizziness and balance issues Difficulty following your treatment plan, or difficulty taking medications CALL 911 OR GO TO THE EMERGENCY DEPARTMENT if you experience any of the following: Sudden, severe abdominal pain or nausea/vomiting Severe chest pain, or chest pain that radiates (moves) to your jaw or arm Sudden, severe shortness of breath or difficulty breathing Thank you for allowing us to participate in your care Pending Studies at Discharge: No Stand-Alone Forms: [facility], Smoking Cessation Medications and DC Order Prescriptions: Continued nitroglycerin 0.4 mg tablet, sublingual 0.4 mg SL Q5M PRN (Reason: chest pain) Qty: 30 0RF Rx Instructions: do not exceed 3 doses per episode metoprolol succinate [Toprol XL] 100 mg tablet extended release 24 hr 100 mg PO HS Qty: 90 3RF (DME) FreeStyle [place] 2 [place] Misc See Rx Instructions .Route Qty: 1 0RF Rx Instructions: Use to monitor blood sugars daily (DME) FreeStyle [place] 2 Sensor Kit See Rx Instructions .ROUTE .MEDSUPPLY Qty: 2 5RF Rx Instructions: Change every 14 days nystatin-triamcinolone 100,000-0.1 unit/gram-% ointment 1 applic TOP TID PRN (Reason: Skin Irritation) Qty: 15 0RF Rx Instructions: Apply three times daily to affected area(s) in perineum. diclofenac sodium 1 % gel 4 g TOP QID PRN (Reason: joint pain) Rx Instructions: Unable to verify OTC meds at this date/time. ibuprofen 200 mg tablet 200 mg PO Q6H PRN (Reason: Pain) Rx Instructions: Unable to verify OTC meds at this date/time. amoxicillin 500 mg capsule 2,000 mg PO UD PRN (Reason: BEFORE DENTAL PROCEDURE) Qty: 4 0RF (DME) Contour Next Test Strips Strip See Rx Instructions .ROUTE .MEDSUPPLY Rx Instructions: tests 1 times daily (DME) lancets [BD Ultra Fine Lancets] 33 gauge misc See Rx Instructions .ROUTE .MEDSUPPLY Qty: 100 Rx Instructions: periodically gabapentin 600 mg tablet 600 mg PO TID Qty: 270 3RF Rx Instructions: Last filled 06/2024 x90 day supply lisinopril 10 mg tablet 10 mg PO DAILY Rx Instructions: Last filled 06/2024 x90 day supply acetaminophen [Tylenol Extra Strength] 500 mg Tablet 500 mg PO Q6H PRN (Reason: Pain) Rx Instructions: Unable to verify OTC meds at this date/time. Centrum 18-400 mg-mcg Tablet 1 tab PO QAM Rx Instructions: Unable to verify OTC meds at this date/time. melatonin 5 mg Tablet 5 mg PO HS PRN (Reason: Sleep) Rx Instructions: Unable to verify OTC meds at this date/time. metformin 1,000 mg tablet 1,000 mg PO BID acyclovir 200 mg capsule 200 mg PO BID Rx Instructions: Last filled 08/2024 x30 day supply. Can take up to 5 pills (100mg) if in outbreak. rosuvastatin 20 mg tablet 20 mg PO HS escitalopram oxalate 5 mg tablet 5 mg PO HS oxycodone 5 mg tablet 5 mg PO Q6H PRN (Reason: pain) Qty: 30 0RF aspirin 81 mg tablet,delayed release (DR/EC) 81 mg PO BID 42 Days Qty: 0 0RF cefadroxil 500 mg capsule 500 mg PO BID 10 Days Qty: 20 0RF Rx Instructions: Filled 12/01/24 x10 day supply vitamin J42-kwafh acid 0.5-1 mg Tablet 1 tab PO DAILY Rx Instructions: Unable to verify OTC meds at this date/time. cholecalciferol (vitamin D3) [Vitamin D3] 50 mcg (2,000 unit) Tablet 50 mcg PO DAILY Rx Instructions: Unable to verify OTC meds at this date/time. tirzepatide 10 mg/0.5 mL pen injector 10 mg subcut WK Marisol/Other Patient Handouts: Managing Type 2 Diabetes Admission Data Admit Date/Time: 12/04/24 14:52 Attending Provider: Jaden Bashir Admit Provider: Jaden Bashir Primary Care Provider: Luke Alonzo Other Providers: Jaden Bashir; [facility]; [facility]
== END 2024-12-06 18:18 | disposition home health service (06) ==
LOC: 3N 10:50 → ED 10:50 → 3N 17:24